=== PATIENT | male | born 1965 | race American Indian/Alaskan Native ===

== ENCOUNTER 2017-03-18 15:44 | Inpatient (IN) | payer MEDICARE, MEDICAID ==
[2017-03-18 15:45] VITALS: BMI 41.1
[2017-03-18 16:52] LABS: BASO % 0.5 % (0.0-2.0); EOS % 0.2 % (0.0-4.0); LYMPH % 26.3 % (20.0-40.0); MEAN CELL VOLUME 83.9 fL (80.0-94.0); MEAN CORPUSCULAR HGB CONC 34.6 g/dL (33.0-37.0); MEAN PLATELET VOLUME 8.1 fL (7.2-11.7); MONO # 0.4 K/uL (0.0-0.8); MONO % 5.7 % (0.0-10.0); NEUT % 67.3 % (50.0-75.0); RBC 4.82 Mil/uL (4.40-5.90); RED CELL DISTRIBUTION WIDTH 13.9 % (11.5-14.5); WHITE BLOOD COUNT 7.4 K/uL (4.8-10.8)
[2017-03-18 17:03] LABS: ALBUMIN 4.6 g/dL (3.5-5.0); ALT/SGPT 45 U/L (21-72); AST/SGOT 44 U/L (17-59); BLOOD UREA NITROGEN 8 mg/dL (9-20); CALCIUM 9.1 mg/dl (8.6-10.4); GFR AFRICAN-AMERICAN > 60; GFR NON-AFRICAN AMERICAN > 60
[2017-03-18 17:09] LABS: SQUAMOUS EPITHIAL < 1 /hpf (0-5); URINE BILIRUBIN NEGATIVE (NEGATIVE); URINE BLOOD NEGATIVE (NEGATIVE); URINE CLARITY Clear (Clear); URINE COLOR Yellow (YELLOW); URINE GLUCOSE (UA) 3+ mg/dL (Normal); URINE LEUKOCYTE ESTERASE NEG Leu/uL (Negative); URINE NITRATE NEGATIVE (NEGATIVE); URINE PROTEIN 2+ mg/dL (NEGATIVE); URINE UROBILINOGEN NORMAL mg/dL (0.2-1.0)
--- NOTE | 2017-03-18 17:12 | C.PDOC ---
History Of Present Illness 51 year old male presents to the ED for evaluation of substance abuse. Patient states he has been binging on alcohol and drugs for the last couple days. Patient saw his counselor today and reported thoughts of hurting himself if he doesn't get help. Patient states he had been clean for almost 4 years before he recently relapsed. Patient denies homicidal ideation and auditory/visual hallucinations at this time. Time Seen by Provider: 03/18/17 16:06 Chief Complaint (Nursing): Substance Abuse History Per: Patient History/Exam Limitations: no limitations Onset/Duration Of Symptoms: Days (2) Current Symptoms Are (Timing): Still Present Modifying Factor(s): Alcohol, Cocaine Associated Symptoms: Suicidal Thoughts. denies: Other (homicidal ideation ) Involuntary Hold By: None Recent travel outside of the [place]: No Additional History Per: Patient Past Medical History Reviewed: Historical Data, Nursing Documentation, Vital Signs Vital Signs: Last Vital Signs Temp 97.6 F 03/18/17 15:52 Pulse 102 H 03/18/17 15:52 Resp 20 03/18/17 15:52 BP 131/86 03/18/17 15:52 Pulse Ox 98 03/18/17 18:36 - Medical History PMH: HTN, Hypercholesterolemia Surgical History: No Surg Hx Family History: States: Unknown Family Hx - Social History Hx Alcohol Use: Yes Hx Substance Use: No - Immunization History Hx Tetanus Toxoid Vaccination: No Hx Influenza Vaccination: No Hx Pneumococcal Vaccination: No Review Of Systems Psych: Positive for: Suicidal ideation. Negative for: Other (homicidal ideation , auditory/hallucination ) Physical Exam - Physical Exam Appears: Non-toxic, No Acute Distress Skin: Normal Color, Warm, Dry Oral Mucosa: Moist Neck: Supple Chest: Symmetrical, No Deformity, No Tenderness Cardiovascular: Rhythm Regular, No Murmur Respiratory: Normal Breath Sounds, No Rales, No Rhonchi, No Wheezing Extremity: Normal ROM, Capillary Refill (less than 2 seconds ) Neurological/Psych: Oriented x3, Normal Speech, Normal Cognition Gait: Steady ED Course And Treatment - Laboratory Results Result Diagrams: 03/18/17 16:47 03/18/17 16:47 O2 Sat by Pulse Oximetry: 98 (on RA) Pulse Ox Interpretation: Normal Medical Decision Making Medical Decision Making: Progress: Bloodwork and UA ordered and reviewed. Patient placed on 1:1 ED observation. Patient has been medically cleared and accepted for admission to under diagnosis of substance abuse, depression and suicidal ideation. Disposition Discussed With Dr.: Erica Zhang Doctor Will See Patient In The: Hospital Counseled Patient/Family Regarding: Studies Performed, Diagnosis - Disposition Disposition: HOSPITALIZED Disposition Time: 18:35 Condition: FAIR - Clinical Impression Clinical Impression: Drug abuse, Bipolar 1 disorder - Scribe Statement The provider has reviewed the documentation as recorded by the Scribe (Ruth Arana) Provider Attestation: All medical record entries made by the Scribe were at my direction and personally dictated by me. I have reviewed the chart and agree that the record accurately reflects my personal performance of the history, physical exam, medical decision making, and the department course for this patient. I have also personally directed, reviewed, and agree with the discharge instructions and disposition.
[2017-03-18 17:24] LABS: ALB/GLOB RATIO 1.3 (1.0-2.1)
[2017-03-18 17:26] LABS: BARBITURATES, UR NEGATIVE (NEGATIVE); BENZODIAZEPINES, UR NEGATIVE (NEGATIVE); OPIATES, UR NEGATIVE (NEGATIVE); PHENCYCLIDINE, UR NEGATIVE (NEGATIVE)
--- NOTE | 2017-03-18 19:39 | PCM.BM ---
<Angeles Bradford - Last Filed: 03/18/17 19:37> Treatment Plan Problems - Problems identified on initial assessmt Suicidal Ideation Date Initiated: 03/18/17 Time Initiated: 19:37 Assessment reference: NA Status: Active Substance Abuse Date Initiated: 03/18/17 Time Initiated: 19:37 Assessment reference: NA Status: Active Treatment assets and liabiliti Patient Assests: adapts well, cooperative, ADL independent, negotiates basic needs, cognitively intact Patient Liabilities: live alone (lives with ), financial problems, relationship conflicts, substance abuse (Cocaine, ETOH), medical problems (DM, Arthritis, Prostate, High Cholesterol) - Milieu Protocol Maintain good personal hygiene: daily Encourage regular showers, daily Remind patient to perform daily oral care, every shift Assist patient to perform ADL's (Self), other Assist patient to perform ADL's Conduct patient checks and document Observation sheet: Q15 minutes (Safety) Maintain personal safety: every shift Educate patient to report safety concerns to staff, every shift Monitor environment for contraband/sharps Medication safety: Monitor for expected outcome, potential side effects: every shift, Assess barriers to learning: every shift, Assess readiness for medication education: every shift <Erica Zhang - Last Filed: 03/19/17 10:38> - Diagnosis (1) Bipolar 1 disorder Status: Acute Interventions: 03/19/17 10:39 * Assess/adjust medications daily and /or as needed * See patient on an individual basis 7x/week to assess level of manic behaviors and stability * Discuss risks, benefits, side effects and alternatives of medications * (2) Alcohol use disorder, severe, dependence Status: Acute Interventions: 03/19/17 10:39 * Assess 7x/week regarding severity of withdrawal * Educate regarding risks, benefits, side effects and alternatives of medications * Use Motivational Interviewing for abstinence * Use CBT for relapse prevention * Medication management for withdrawal symptoms * Encourage medication assisted treatment * <Aline Saldana - Last Filed: 03/19/17 11:13> Family Contact Family involvement: Famliy/SO not involved - Goals for Treatment Patient goals for treatment: "I want to go to rehab." Discharge/Continuing Care - Education Needs Education Needs: Patient Medication, Patient Coping Skills, Patient Placement options, Patient Community resources - Discharge Discharge Criteria: Tolerates medication w/o severe side effects, Free of Suicidal thoughts, Reduction of target symptoms Discharge to:: Substance Abuse Rehab - Treatment Team Participation Discussed with Family/SO: No Was Patient/Family/SO present at Treatment Team Meeting: Yes
[2017-03-18] MEDS: Rosuvastatin Calcium 2.5 mg Tab PO SCH (21:50)
--- NOTE | 2017-03-19 10:31 | PCM.PSYCH ---
Initial Psychiatric Evaluation - Initial Psychiatric Evaluation Type of Admission: Voluntary Legal Status: Capacity Chief Complaint (in patient's own words): I was feeling depressed and suicidal History of Present Illness and Precipitating Events: Pt is a 51 year old -[place] male, who came to the ED, with complaints of suicidal ideation. Patient reports a long history of bipolar disorder. Patient reported in the ED that, 'he has been [facility] and his counselor Mr. Jacobs advised him to go to the hospital after disclosing SI and substance use. Pt stated he relapsed on the cocaine and alcohol in February 02, 2017 after being sober for 4 1/2 years. Pt stated he last used cocaine almost $60 worth, yesterday. Pt also reported drinking a 6 pack of 24 oz beers daily, last abused yesterday. Pt stated he has been having thoughts of wanting to harm himself for over one week. When asked if he has a plan he reports he has "a couple of plans" which consists of him jumping off bridge. Pt states he is diagnosed Bipolar Disorder and reports being prescribed medications, unknown but he hasn't taken for over 2 -3 weeks. Pt stated he [place] [facility] [place] 23 [place] Suicide attempt when he drank poision. Pt also reported being hospitalized in [place] and "a few other hospitals in [place]" he believes the last hospitalization to be 2011. Pt stated that when his learned of his drug use she kicked him out and he has been staying at his mother and father's house sleeping on the couch. Pt is a and reports he served in the until 01/07/1990. 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 He also reports depressed mood and feelings of hopelessness and helplessness. He reports poor sleep and poor appetite. He also reports auditory hallucinations, telling him to kill himself but denies any visual hallucinations. PMH: DM, Hypercholesterolimia, Glaucoma, Arthritis, Enlarged prostate. Current Medications: Active Medications Generic Name Dose Route Start Last Admin Trade Name Freq PRN Reason Stop Dose Admin Hydroxyzine HCl 25 mg 03/18/17 21:32 Atarax PO Q6 PRN Agitation Metformin HCl 1,000 mg 03/19/17 10:00 03/19/17 09:50 Glucophage PO 1,000 mg BID ESTUARDO Administration Pneumococcal Polyvalent Vaccine 0.5 ml 03/20/17 10:00 Pneumovax 23 Vaccine IM 03/20/17 10:01 .ONCE ONE Rosuvastatin Calcium 2.5 mg 03/18/17 22:00 03/18/17 21:50 Crestor PO 2.5 mg HS ESTUARDO Administration Trazodone HCl 50 mg 03/18/17 22:00 03/18/17 21:50 Desyrel PO 50 mg HS ESTUARDO Administration Past Psychiatric History - Past Psychiatric History Previous Treatment History: Inpatient Pertinent Medical Hx (Current Medical&Sleep Prob, Allergies): Allergies Allergy/AdvReac Type Severity Reaction Status Date / Time No Known Allergies Allergy Verified 03/18/17 15:55 MetFORMIN [glucOPHAGE] 1,000 mg PO BID 03/18/17 Simvastatin 10 mg PO HS 03/18/17 Review of Systems - Review of Systems All systems: reviewed and no additional remarkable complaints except - Psychiatric Psychiatric: Anxiety, Auditory Hallucinations, Depression, Irritability, Suicidal Ideation Mental Status Examination - Personal Presentation Personal Presentation: Looks stated age - Affect Affect: Constricted, Depressed - Motor Activity Motor Activity: Calm - Reliability in Providing Information Reliability in Providing Information: Fair - Speech Speech: Organized - Mood Mood: Depressed, Anxious - Formal Thought Process Formal Thought Process: Hallucinations - Hallucinations/Delusions Hallucinations: Auditory - Obsessions/Compulsions Obsessions: No Compulsions: No - Cognitive Functions Orientation: Person, Place, Situation, Time Sensorium: Alert Attention/Concentration: Attentive Abstract Thinking: [place] Estimate of Intelligence: Below average Judgement: Imparied, as evidence by: Poor judgement, Imparied, as evidence by: Lack of insight into illness - Risk Risk: Suicidal, Diminished functioning - Strength & Assets Inventory Strength & Assets Inventory: Intelligence - Limitations Limitations: Living alone DSM 5 DX - DSM 5 DSM 5 Diagnosis: Bipolar disorder depressed with psychotic features Alcohol use disorder severe Cocaine use disorder severe - Recommended/Plan of Treatment Treatment Recommendations and Plan of Treatment: Bipolar disorder depressed with psychotic features CBT Psychoeducation Supportive therapy, group therapy, individual therapy Neurontin 100 mg PO TID Depakote 250 mg by mouth twice a day Trazodone 50 mg by mouth daily at bedtime Alcohol use disorder severe CBT Psychoeducation Supportive therapy, individual therapy Use [place] for abstinence Librium when necessary Start folic acid/thiamine/multivitamin Cocaine use disorder severe CBT Psychoeducation Supportive therapy, individual therapy Use [place] for abstinence DM Continue prescribed medications Monitor for signs and symptoms Hypercholesterolimia Continue prescribed medications Monitor for signs and symptoms Glaucoma, Continue prescribed medications Monitor for signs and symptoms Enlarged prostate Continue prescribed medications Monitor for signs and symptoms - Smoking Cessation Smoking Cessation Initiated: No
[2017-03-19] MEDS: Divalproex 250 mg DR Tab PO SCH (17:48)
[2017-03-19] MEDS: Rosuvastatin Calcium 2.5 mg Tab PO SCH (22:19)
[2017-03-20] MEDS: Divalproex 250 mg DR Tab PO SCH ×2 (09:43→17:20)
[2017-03-20] MEDS ORDERED: Pneumococcal 23-Valent Vaccine IM ONE (10:00)
[2017-03-20] MEDS ORDERED: Influenza Vaccine 60 mcg/0.5 mL SYR (4YR UP) IM ONE (10:00)
--- NOTE | 2017-03-20 15:13 | PCM.PYCHPN ---
Psychiatric Progress Note - Psychiatric Progress Note Patient seen today, length of contact: 15 minutes Patient Chief Complaint: "I was not able to sleep last night" Problems Identified/Issues Discussed: Patient was seen and evaluated chart was reviewed. Nurse improved was received. The patient stated that he is feeling better however he was not able to sleep last night. He still reported depressive symptoms. He needs more time to stabilize. He denied suicidal and homicidal ideation intent and plan. He is compliant with the medication and denied side effects. DSM 5 Symptoms Update: Bipolar disorder depressed with psychotic features Alcohol use disorder severe Cocaine use disorder severe Medication Change: Yes (Increase trazodone) Medical Record Reviewed: Yes Mental Status Examination - Cognitive Function Orientation: Person, Place, Situation, Time Memory: Intact Attention: WNL Concentration: WNL Association: Loose Fund of Knowledge: WNL Decription of patient's judgement and insights: Limited/fair - Mood Mood: Depressed, Anxious - Affect Affect: Constricted, Depressed - Speech Speech: Appropriate - Formal Thought Process Formal Thought Process: Hallucinations Psychotic Thoughts and Behaviors: He is calm and cooperative - Suicidal Ideation Suicidal Ideation: No - Homicidal Ideation Homicidal Ideation: No Goal/Treatment Plan - Goal/Treatment Plan Need for Continued Stay: Severe depression anxiety, Discharge may exacerbated symptoms, Severe functional impairment Progress Toward Problem(s) and Goals/Treatment Plan: Bipolar disorder depressed with psychotic features CBT Psychoeducation Supportive therapy, group therapy, individual therapy Neurontin 100 mg PO TID Depakote 250 mg by mouth twice a day Trazodone 50 mg by mouth daily at bedtime Alcohol use disorder severe CBT Psychoeducation Supportive therapy, individual therapy Use [place] for abstinence Librium when necessary Start folic acid/thiamine/multivitamin Cocaine use disorder severe CBT Psychoeducation Supportive therapy, individual therapy Use NM for abstinence DM Continue prescribed medications Monitor for signs and symptoms Hypercholesterolimia Continue prescribed medications Monitor for signs and symptoms Glaucoma, Continue prescribed medications Monitor for signs and symptoms Enlarged prostate Continue prescribed medications Monitor for signs and symptoms Estimated Date of D/C: 03/24/17 - Smoking Cessation Smoking Cessation Initiated: Yes
[2017-03-20] MEDS: Rosuvastatin Calcium 2.5 mg Tab PO SCH (22:09)
[2017-03-21] MEDS: Divalproex 250 mg DR Tab PO SCH ×2 (09:41→17:43)
--- NOTE | 2017-03-21 12:26 | PCM.PYCHPN ---
Psychiatric Progress Note - Psychiatric Progress Note Patient seen today, length of contact: 15 minutes Patient Chief Complaint: "So so" Problems Identified/Issues Discussed: The pt is seen, chart reviewed, case discussed with staff. The pt is compliant with medications and reports no side-effects. Symptoms are improving but needs more time to stabilize. After care discussed, support and psychoeducation given. Lexapro added bc of depressed mood, anhedonia Medication Change: Yes (add lexapro) Medical Record Reviewed: Yes Mental Status Examination - Cognitive Function Orientation: Person, Place, Situation, Time Memory: Intact Attention: WNL Concentration: WNL Association: Loose Fund of Knowledge: WNL - Mood Mood: Depressed, Anxious - Affect Affect: Constricted, Depressed - Speech Speech: Appropriate - Formal Thought Process Formal Thought Process: No Impairment - Suicidal Ideation Suicidal Ideation: No - Homicidal Ideation Homicidal Ideation: No Goal/Treatment Plan - Goal/Treatment Plan Need for Continued Stay: Severe depression anxiety, Discharge may exacerbated symptoms, Severe functional impairment Progress Toward Problem(s) and Goals/Treatment Plan: Continue medications Support and psychoeducation daily Attend groups and activities daily After care planning by JEANNA Estimated Date of D/C: 03/24/17
[2017-03-21] MEDS: Rosuvastatin Calcium 2.5 mg Tab PO SCH (22:08)
[2017-03-22] MEDS: Divalproex 250 mg DR Tab PO SCH ×2 (09:12→17:09)
--- NOTE | 2017-03-22 18:13 | PCM.PYCHPN ---
Psychiatric Progress Note - Psychiatric Progress Note Patient seen today, length of contact: 15 minutes Patient Chief Complaint: "I'm feeling better" Problems Identified/Issues Discussed: Patient was seen and evaluated chart was reviewed. Nurse improved was received. The patient stated that he is feeling better. He still reported depressive symptoms. He needs more time to stabilize. He denied suicidal and homicidal ideation intent and plan. He is compliant with the medication and denied side effects. He denied etoh withdrawal symptoms Medication Change: No Medical Record Reviewed: Yes Mental Status Examination - Cognitive Function Orientation: Person, Place, Situation, Time Memory: Intact Attention: WNL Concentration: WNL Association: Loose Fund of Knowledge: WN Decription of patient's judgement and insights: limited/fair - Mood Mood: Depressed, Anxious - Affect Affect: Constricted, Depressed - Speech Speech: Appropriate - Formal Thought Process Formal Thought Process: No Impairment Psychotic Thoughts and Behaviors: denied - Suicidal Ideation Suicidal Ideation: No Plan: denied - Homicidal Ideation Homicidal Ideation: No Plan: denied Goal/Treatment Plan - Goal/Treatment Plan Need for Continued Stay: Severe depression anxiety, Discharge may exacerbated symptoms, Severe functional impairment Progress Toward Problem(s) and Goals/Treatment Plan: Bipolar disorder depressed with psychotic features CBT Psychoeducation Supportive therapy, group therapy, individual therapy Neurontin 100 mg PO TID Depakote 250 mg by mouth twice a day Trazodone 50 mg by mouth daily at bedtime Alcohol use disorder severe CBT Psychoeducation Supportive therapy, individual therapy Use [place] for abstinence Librium when necessary Start folic acid/thiamine/multivitamin Cocaine use disorder severe CBT Psychoeducation Supportive therapy, individual therapy Use [place] for abstinence DM Continue prescribed medications Monitor for signs and symptoms Hypercholesterolimia Continue prescribed medications Monitor for signs and symptoms Glaucoma, Continue prescribed medications Monitor for signs and symptoms Enlarged prostate Continue prescribed medications Monitor for signs and symptoms Estimated Date of D/C: 03/24/17
[2017-03-22] MEDS: Rosuvastatin Calcium 2.5 mg Tab PO SCH (21:23)
[2017-03-23] MEDS: Divalproex 250 mg DR Tab PO SCH ×2 (10:05→17:33)
--- NOTE | 2017-03-23 11:28 | PCM.PYCHPN ---
Psychiatric Progress Note - Psychiatric Progress Note Patient seen today, length of contact: 15 minutes Patient Chief Complaint: I was feeling depressed and suicidal Medication Change: No Medical Record Reviewed: Yes Mental Status Examination - Cognitive Function Orientation: Person, Place, Situation, Time Memory: Intact Attention: WNL Concentration: WNL Association: Loose Fund of Knowledge: WNL - Mood Mood: Depressed, Anxious - Affect Affect: Constricted, Depressed - Speech Speech: Appropriate - Formal Thought Process Formal Thought Process: No Impairment - Suicidal Ideation Suicidal Ideation: No - Homicidal Ideation Homicidal Ideation: No Goal/Treatment Plan - Goal/Treatment Plan Need for Continued Stay: Severe depression anxiety, Discharge may exacerbated symptoms, Severe functional impairment Progress Toward Problem(s) and Goals/Treatment Plan: Bipolar disorder depressed with psychotic features CBT Psychoeducation Supportive therapy, group therapy, individual therapy Neurontin 100 mg PO TID Depakote 250 mg by mouth twice a day Trazodone 50 mg by mouth daily at bedtime Alcohol use disorder severe CBT Psychoeducation Supportive therapy, individual therapy Use [place] for abstinence Librium when necessary Start folic acid/thiamine/multivitamin Cocaine use disorder severe CBT Psychoeducation Supportive therapy, individual therapy Use [place] for abstinence DM Continue prescribed medications Monitor for signs and symptoms Hypercholesterolimia Continue prescribed medications Monitor for signs and symptoms Glaucoma, Continue prescribed medications Monitor for signs and symptoms Enlarged prostate Continue prescribed medications Monitor for signs and symptoms Estimated Date of D/C: 03/24/17
[2017-03-23] MEDS: Rosuvastatin Calcium 2.5 mg Tab PO SCH (21:13)
--- NOTE | 2017-03-24 09:59 | PCM.PYCHPN ---
Psychiatric Progress Note - Psychiatric Progress Note Patient seen today, length of contact: 15 minutes Patient Chief Complaint: I was feeling depressed and suicidal Medication Change: No Medical Record Reviewed: Yes Mental Status Examination - Cognitive Function Orientation: Person, Place, Situation, Time Memory: Intact Attention: WNL Concentration: WNL Association: Loose Fund of Knowledge: WNL - Mood Mood: Depressed, Anxious - Affect Affect: Constricted, Depressed - Speech Speech: Appropriate - Formal Thought Process Formal Thought Process: No Impairment - Suicidal Ideation Suicidal Ideation: No - Homicidal Ideation Homicidal Ideation: No Goal/Treatment Plan - Goal/Treatment Plan Need for Continued Stay: Severe depression anxiety, Discharge may exacerbated symptoms, Severe functional impairment Progress Toward Problem(s) and Goals/Treatment Plan: Bipolar disorder depressed with psychotic features CBT Psychoeducation Supportive therapy, group therapy, individual therapy Neurontin 100 mg PO TID Depakote 250 mg by mouth twice a day Trazodone 50 mg by mouth daily at bedtime Alcohol use disorder severe CBT Psychoeducation Supportive therapy, individual therapy Use [place] for abstinence Librium when necessary Start folic acid/thiamine/multivitamin Cocaine use disorder severe CBT Psychoeducation Supportive therapy, individual therapy Use [place] for abstinence DM Continue prescribed medications Monitor for signs and symptoms Hypercholesterolimia Continue prescribed medications Monitor for signs and symptoms Glaucoma, Continue prescribed medications Monitor for signs and symptoms Enlarged prostate Continue prescribed medications Monitor for signs and symptoms Estimated Date of D/C: 03/24/17
[2017-03-24] MEDS: Divalproex 250 mg DR Tab PO SCH ×2 (14:34→17:02)
[2017-03-24] MEDS: Rosuvastatin Calcium 2.5 mg Tab PO SCH (21:17)
--- NOTE | 2017-03-25 09:44 | PCM.PYCHPN ---
Psychiatric Progress Note - Psychiatric Progress Note Patient seen today, length of contact: 15 minutes Patient Chief Complaint: I was feeling depressed and suicidal Medication Change: No Medical Record Reviewed: Yes Mental Status Examination - Cognitive Function Orientation: Person, Place, Situation, Time Memory: Intact Attention: WNL Concentration: WNL Association: Loose Fund of Knowledge: WNL - Mood Mood: Depressed, Anxious - Affect Affect: Constricted, Depressed - Speech Speech: Appropriate - Formal Thought Process Formal Thought Process: No Impairment - Suicidal Ideation Suicidal Ideation: No - Homicidal Ideation Homicidal Ideation: No Goal/Treatment Plan - Goal/Treatment Plan Need for Continued Stay: Severe depression anxiety, Discharge may exacerbated symptoms, Severe functional impairment Progress Toward Problem(s) and Goals/Treatment Plan: Bipolar disorder depressed with psychotic features CBT Psychoeducation Supportive therapy, group therapy, individual therapy Neurontin 100 mg PO TID Depakote 250 mg by mouth twice a day Trazodone 50 mg by mouth daily at bedtime Alcohol use disorder severe CBT Psychoeducation Supportive therapy, individual therapy Use [place] for abstinence Librium when necessary Start folic acid/thiamine/multivitamin Cocaine use disorder severe CBT Psychoeducation Supportive therapy, individual therapy Use [place] for abstinence DM Continue prescribed medications Monitor for signs and symptoms Hypercholesterolimia Continue prescribed medications Monitor for signs and symptoms Glaucoma, Continue prescribed medications Monitor for signs and symptoms Enlarged prostate Continue prescribed medications Monitor for signs and symptoms Estimated Date of D/C: 03/24/17
[2017-03-25] MEDS: Divalproex 250 mg DR Tab PO SCH ×2 (09:54→17:10)
[2017-03-25] MEDS: Rosuvastatin Calcium 2.5 mg Tab PO SCH (21:18)
[2017-03-26] MEDS: Divalproex 250 mg DR Tab PO SCH ×2 (09:39→17:10)
--- NOTE | 2017-03-26 12:50 | PCM.PYCHPN ---
Psychiatric Progress Note - Psychiatric Progress Note Patient seen today, length of contact: 15 minutes Patient Chief Complaint: I am still feeling depressed.' Problems Identified/Issues Discussed: Patient seen and evaluated, chart reviewed and discussed with the nurse. As per the staff he remained isolated withdrawn and confined to his room. He still reports depressed mood, anxiety, anhidonia and poor sleep. Patient is compliant with medications and denies any side effects. Symptoms are improving but need more time to stabilize. Support and psychoeducation given. Medication Change: Yes (increase remeron) Medical Record Reviewed: Yes Mental Status Examination - Cognitive Function Orientation: Person, Place, Situation, Time Memory: Intact Attention: Poor Concentration: WNL Association: Loose Fund of Knowledge: WNL - Mood Mood: Depressed, Anxious - Affect Affect: Constricted, Depressed - Speech Speech: Appropriate - Formal Thought Process Formal Thought Process: No Impairment - Suicidal Ideation Suicidal Ideation: No - Homicidal Ideation Homicidal Ideation: No Goal/Treatment Plan - Goal/Treatment Plan Need for Continued Stay: Severe depression anxiety, Discharge may exacerbated symptoms, Severe functional impairment Progress Toward Problem(s) and Goals/Treatment Plan: Bipolar disorder depressed with psychotic features CBT Psychoeducation Supportive therapy, group therapy, individual therapy Depakote 250 mg by mouth twice a day Remeron 30 mg PO QHS Lexparo 20 mg PO Daily Trazodone 50 mg by mouth daily at bedtime Alcohol use disorder severe CBT Psychoeducation Supportive therapy, individual therapy Use ND for abstinence Librium when necessary Start folic acid/thiamine/multivitamin Cocaine use disorder severe CBT Psychoeducation Supportive therapy, individual therapy Use ND for abstinence DM Continue prescribed medications Monitor for signs and symptoms Hypercholesterolimia Continue prescribed medications Monitor for signs and symptoms Glaucoma, Continue prescribed medications Monitor for signs and symptoms Enlarged prostate Continue prescribed medications Monitor for signs and symptoms Estimated Date of D/C: 03/24/17 - Smoking Cessation Smoking Cessation Initiated: No
[2017-03-26] MEDS: Rosuvastatin Calcium 2.5 mg Tab PO SCH (21:09)
[2017-03-27] MEDS: Divalproex 250 mg DR Tab PO SCH ×2 (09:46→17:19)
[2017-03-27 16:49] VITALS: O2SAT 20
[2017-03-27] MEDS: Rosuvastatin Calcium 2.5 mg Tab PO SCH (21:53)
[2017-03-28] MEDS: Divalproex 250 mg DR Tab PO SCH ×2 (09:55→17:18)
[2017-03-28] MEDS ORDERED: Naltrexone 25 MG TAB PO SCH (10:00)
[2017-03-28] MEDS: Rosuvastatin Calcium 2.5 mg Tab PO SCH (21:26)
[2017-03-29] MEDS: Divalproex 250 mg DR Tab PO SCH ×2 (09:56→18:06)
[2017-03-29 10:17] VITALS: RESP 20
--- NOTE | 2017-03-29 20:00 | PCM.PYCHPN ---
Psychiatric Progress Note - Psychiatric Progress Note Patient seen today, length of contact: 15 minutes Patient Chief Complaint: I am still feeling depressed.' Problems Identified/Issues Discussed: Patient seen and evaluated, chart reviewed and discussed with the nurse. As per the staff he remained isolated withdrawn and confined to his room. He still reports depressed mood, anxiety, anhidonia and poor sleep. Patient is compliant with medications and denies any side effects. Symptoms are improving but need more time to stabilize. Support and psychoeducation given. Medication Change: Yes (increase remeron) Medical Record Reviewed: Yes Mental Status Examination - Cognitive Function Orientation: Person, Place, Situation, Time Memory: Intact Attention: Poor Concentration: WNL Association: Loose Fund of Knowledge: WNL - Mood Mood: Depressed, Anxious - Affect Affect: Constricted, Depressed - Speech Speech: Appropriate - Formal Thought Process Formal Thought Process: No Impairment - Suicidal Ideation Suicidal Ideation: No - Homicidal Ideation Homicidal Ideation: No Goal/Treatment Plan - Goal/Treatment Plan Need for Continued Stay: Severe depression anxiety, Discharge may exacerbated symptoms, Severe functional impairment Progress Toward Problem(s) and Goals/Treatment Plan: Bipolar disorder depressed with psychotic features CBT Psychoeducation Supportive therapy, group therapy, individual therapy Depakote 250 mg by mouth twice a day Remeron 30 mg PO QHS Lexparo 20 mg PO Daily Trazodone 50 mg by mouth daily at bedtime Alcohol use disorder severe CBT Psychoeducation Supportive therapy, individual therapy Use [place] for abstinence Librium when necessary Start folic acid/thiamine/multivitamin Cocaine use disorder severe CBT Psychoeducation Supportive therapy, individual therapy Use [place] for abstinence DM Continue prescribed medications Monitor for signs and symptoms Hypercholesterolimia Continue prescribed medications Monitor for signs and symptoms Glaucoma, Continue prescribed medications Monitor for signs and symptoms Enlarged prostate Continue prescribed medications Monitor for signs and symptoms Estimated Date of D/C: 03/24/17
[2017-03-29] MEDS: Rosuvastatin Calcium 2.5 mg Tab PO SCH (22:29)
[2017-03-30 06:02] VITALS: BP 115/74; PULSE 85; TEMP 97.6
--- NOTE | 2017-03-30 07:47 | PCM.PYCHPN ---
Psychiatric Progress Note - Psychiatric Progress Note Patient seen today, length of contact: 15 minutes Patient Chief Complaint: I AM HAVING VIVID AND STRANGE DREAMS. Problems Identified/Issues Discussed: POST ACUTE WITHDRAWAL SYNDROME SYMPTOM MANAGEMENT Medical Problems: NOTHING ACUTE Diagnostic Results: REVIEWED DSM 5 Symptoms Update: MORE ENERGY MORE MOTIVATION Medication Change: No Medical Record Reviewed: Yes Mental Status Examination - Cognitive Function Orientation: Person, Place, Situation, Time Memory: Intact Concentration: WNL Association: [facility] Fund of Knowledge: WN - Mood Mood: Depressed - Affect Affect: Constricted, Depressed - Speech Speech: Appropriate - Formal Thought Process Formal Thought Process: No Impairment - Suicidal Ideation Suicidal Ideation: No - Homicidal Ideation Homicidal Ideation: No Goal/Treatment Plan - Goal/Treatment Plan Need for Continued Stay: Severe depression anxiety, Discharge may exacerbated symptoms, Severe functional impairment Progress Toward Problem(s) and Goals/Treatment Plan: BIPOLAR DISORDER NEUROTIN DEPAKOTE ALCOHOL USE DISORDER TN CBT Estimated Date of D/C: 03/30/17 - Smoking Cessation Smoking Cessation Initiated: Yes
--- NOTE | 2017-03-30 10:06 | PCM.PYCHDC ---
Mental Status Examination - Mental Status Examination Orientation: Person, Place, Situation, Time Memory: Intact Mood: Neutral Affect: Constricted Speech: Soft Attention: WNL Concentration: WNL Association: WNL Fund of Knowledge: WNL Formal Thought Process: No Impairment Description of patient's judgement and insight: good, fair Psychotic Thoughts and Behaviors: denies any AVH Suicidal Ideation: No Current Homicidal Ideation?: No Discharge Summary - Discharge Note Reason for Hospitalization: Pt is a 51 year old -Eth[place]ian male, who came to the ED, with complaints of suicidal ideation. Patient reports a long history of bipolar disorder. Patient reported in the ED that, 'he has been [facility] and his counselor Mr. Jacobs advised him to go to the hospital after disclosing SI and substance use. Pt stated he relapsed on the cocaine and alcohol in February 02, 2017 after being sober for 4 1/2 years. Pt stated he last used cocaine almost $60 worth, yesterday. Pt also reported drinking a 6 pack of 24 oz beers daily, last abused yesterday. Pt stated he has been having thoughts of wanting to harm himself for over one week. When asked if he has a plan he reports he has "a couple of plans" which consists of him jumping off bridge. Pt states he is diagnosed Bipolar Disorder and reports being prescribed medications, unknown but he hasn't taken for over 2 -3 weeks. Pt stated he was hospitalized psychiatrically at [facility] at age 23 after Suicide attempt when he drank poision. Pt also reported being hospitalized in [place] and "a few other hospitals in [place]" he believes the last hospitalization to be 2011. Pt stated that when his learned of his drug use she kicked him out and he has been staying at his mother and father's house sleeping on the couch. Pt is a and reports he served in the [employer] until 01/07/1990. 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 He also reports depressed mood and feelings of hopelessness and helplessness. He reports poor sleep and poor appetite. He also reports auditory hallucinations, telling him to kill himself but denies any visual hallucinations. Laboratory Data: Abnormal Lab Results 03/30/17 07:19 POC Glucose (mg/dL) 252 H Consultations:: List each consultation separately and include: 1. Reason for request. 2. Findings. 3. Follow-up Summary of Hospital Course include:: 1. Description of specific treatment plan utilized for patients during their course of treatmen. 2. Summarize the time- course for resolution of acute symptoms and/or regressed behaviors. 3. Describe issues identified and worked on during hospitalization. 4. Describe medication utilized. 5. Describe medical problems identified and treated. 6. Reassessment of suicide risk Summary of Hospital Course: During the course of his stay, patient (pt) started progressively improving and he no longer remained irritable, depressed, and suicidal. His mood was improved and he started attending groups and meetings and started socializing. Patient denied any feelings of hopelessness, helplessness, and worthlessness, denied any problem with the sleep or appetite, denied suicidal ideation or homicidal ideation. Pt denied any auditory or visual hallucinations. Some changes were made in his current medications and patient was discharged on following medications. He tolerated these medications very well and denied any side effects. CBT and OH were used. He was discharged to [facility]. - Diagnosis (1) Bipolar 1 disorder Status: Acute (2) Alcohol use disorder, severe, dependence Status: Acute - Final Diagnosis (DSM 5) Condition upon Discharge: FAIR DSM 5: Bipolar disorder depressed with psychotic features Alcohol use disorder severe Cocaine use disorder severe Disposition: HOME/ ROUTINE Follow-up Treatment Plan: Education: Pt was educated and counseled about the risks and benefits of taking and not taking medications. Pt was educated and counseled about the risks of drinking and abusing drugs. Pt was educated and counseled to go to the ER or call 911 if pt develop suicidal ideation or homicidal ideation, worsening of symptoms or severe side effects of the meds. Prescriptions/Medication Reconciliation: Divalproex [Depakote DR] 250 mg PO BID #60 tcp Escitalopram [Lexapro] 20 mg PO DAILY #30 tab Mirtazapine [Remeron] 30 mg PO HS #30 tab traZODone [Desyrel] 100 mg PO HS #60 tab - Smoking Cessation Smoking Cessation Medication prescribed: No - Antipsychotic Medications Pt discharged on 2 or more routine antipsychotic medications: No
[2017-03-30] MEDS: Divalproex 250 mg DR Tab PO SCH (10:56)
== END 2017-03-30 11:30 | disposition home or self-care (01) | DRG 885 ==
LOC: C.ER 15:44 → C.5E 18:34
PROVIDERS: ADMIT Psychiatry & Neurology Psychiatry; ATTEND Psychiatry & Neurology Psychiatry
PROC: HZ2ZZZZ Detoxification Services for Substance Abuse Treatment (ICD-10-PCS; principal; 2017-03-18)
PROC: GZ3ZZZZ Medication Management (ICD-10-PCS; 2017-03-18)
PROC: GZHZZZZ Group Psychotherapy (ICD-10-PCS; 2017-03-18)
PROC: GZ56ZZZ Individual Psychotherapy, Supportive (ICD-10-PCS; 2017-03-18)
PROC: HZ89ZZZ Medication Management for Substance Abuse Treatment, Other Replacement Medication (ICD-10-PCS; 2017-03-18)
PROC: HZ46ZZZ Group Counseling for Substance Abuse Treatment, Psychoeducation (ICD-10-PCS; 2017-03-18)
PROC: HZ59ZZZ Individual Psychotherapy for Substance Abuse Treatment, Supportive (ICD-10-PCS; 2017-03-18)
DX: F31.5 Bipolar disorder, current episode depressed, severe, with psychotic features (principal); F14.20 Cocaine dependence, uncomplicated; R45.851 Suicidal ideations; F10.20 Alcohol dependence, uncomplicated; E11.9 Type 2 diabetes mellitus without complications; N40.0 Benign prostatic hyperplasia without lower urinary tract symptoms; H40.9 Unspecified glaucoma; F41.9 Anxiety disorder, unspecified; E78.00 Pure hypercholesterolemia, unspecified

== ENCOUNTER 2017-06-01 01:27 | Inpatient (IN) | payer MEDICARE, MEDICAID ==
[2017-06-01 01:27] VITALS: BMI 41.1
--- NOTE | 2017-06-01 02:38 | C.PDOC ---
History Of Present Illness 51 year old male presents to the ER stating he is suicidal with a plan to jump in front of a train. Denies physical complaints at this time. Time Seen by Provider: 06/01/17 01:57 Chief Complaint (Nursing): Psychiatric Evaluation History Per: Patient History/Exam Limitations: no limitations Onset/Duration Of Symptoms: Days Current Symptoms Are (Timing): Still Present Suicide/Self Injury Attempted (Context): None Modifying Factor(s): None Associated Symptoms: Suicidal Thoughts, Suicidal Plan. denies: Depression Involuntary Hold By: None Recent travel outside of the [place]: No Past Medical History Reviewed: Historical Data, Nursing Documentation, Vital Signs Vital Signs: Last Vital Signs Temp 98.4 F 06/01/17 01:40 Pulse 102 H 06/01/17 01:40 Resp 20 06/01/17 01:40 BP 110/73 06/01/17 01:40 Pulse Ox 100 06/01/17 02:42 - Medical History PMH: Bipolar Disorder, Depression, Diabetes, HTN, Hypercholesterolemia - [facility] Procedures DETOXIFICATION SERVICES FOR SUBSTANCE ABUSE TREATMENT (03/18/17) GROUP DRESS MARKER FOR SUBSTANCE ABUSE TREATMENT, PSYCHOEDUCATION (03/18/17) GROUP PSYCHOTHERAPY (03/18/17) INDIV PSYCHOTHERAPY FOR SUBSTANCE ABUSE TREATMENT, SUPPORT (03/18/17) INDIVIDUAL PSYCHOTHERAPY, SUPPORTIVE (03/18/17) MEDICATION MANAGEMENT (03/18/17) MEDS MGMT FOR SUBSTANCE ABUSE TREATMENT, OTH REPL MED (03/18/17) Family History: States: Unknown Family Hx - Social History Hx Alcohol Use: Yes (Drink alcohol daily) Hx Substance Use: Yes - Immunization History Hx Tetanus Toxoid Vaccination: No Hx Influenza Vaccination: No Hx Pneumococcal Vaccination: No Review Of Systems Constitutional: Negative for: Fever, Chills Cardiovascular: Negative for: Chest Pain, Palpitations Respiratory: Negative for: Cough Gastrointestinal: Negative for: Nausea, Vomiting, Diarrhea Psych: Positive for: Suicidal ideation (w/ plan) Physical Exam - Physical Exam Appears: Non-toxic, No Acute Distress Skin: Normal Color, Warm, Dry Head: Atraumatic, Normacephalic Eye(s): bilateral: Normal Inspection Oral Mucosa: Moist Chest: Symmetrical, No Tenderness Cardiovascular: Rhythm Regular Respiratory: Normal Breath Sounds, No Rales, No Rhonchi, No Wheezing Gastrointestinal/Abdominal: Soft, No Tenderness Neurological/Psych: Oriented x3, Normal Speech ED Course And Treatment - Laboratory Results Result Diagrams: 06/01/17 04:44 06/01/17 04:44 O2 Sat by Pulse Oximetry: 100 (Room air) Pulse Ox Interpretation: Normal Progress Note: Patient was admitted to psych Medical Decision Making Medical Decision Making: Crisis notified. 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 - Scribe Statement The provider has reviewed the documentation as recorded by the Scribe Forest Man All medical record entries made by the Ivanaibe were at my direction and personally dictated by me. I have reviewed the chart and agree that the record accurately reflects my personal performance of the history, physical exam, medical decision making, and the department course for this patient. I have also personally directed, reviewed, and agree with the discharge instructions and disposition.
[2017-06-01 04:47] LABS: BASO # 0.1 K/uL (0.0-0.2); BASO % 0.6 % (0.0-2.0); EOS % 0.1 % (0.0-4.0); HEMOGLOBIN 13.9 g/dL (12.0-18.0); LYMPH # 2.8 K/uL (1.0-4.3); LYMPH % 30.3 % (20.0-40.0); MEAN CELL VOLUME 87.4 fL (80.0-94.0); MEAN CORPUSCULAR HEMOGLOBIN 28.8 pg (27.0-31.0); MEAN PLATELET VOLUME 8.8 fL (7.2-11.7); MONO # 0.4 K/uL (0.0-0.8); NEUT # 5.9 K/uL (1.8-7.0); NRBC % 0.1 % (0.0-2.0); RBC 4.84 Mil/uL (4.40-5.90); RED CELL DISTRIBUTION WIDTH 14.9 % (11.5-14.5); WHITE BLOOD COUNT 9.1 K/uL (4.8-10.8)
[2017-06-01 05:04] LABS: BARBITURATES, UR NEGATIVE (NEGATIVE); BENZODIAZEPINES, UR NEGATIVE (NEGATIVE); OPIATES, UR NEGATIVE (NEGATIVE); PHENCYCLIDINE, UR NEGATIVE (NEGATIVE)
[2017-06-01 05:16] LABS: ALB/GLOB RATIO 1.2 (1.0-2.1); ALBUMIN 4.6 g/dL (3.5-5.0); ALT/SGPT 47 U/L (21-72); AST/SGOT 26 U/L (17-59); BLOOD UREA NITROGEN 4 mg/dL (9-20); CALCIUM 9.2 mg/dl (8.6-10.4); GFR AFRICAN-AMERICAN > 60; GFR NON-AFRICAN AMERICAN > 60
[2017-06-01 05:31] LABS: SQUAMOUS EPITHIAL < 1 /hpf (0-5); URINE BILIRUBIN NEGATIVE (NEGATIVE); URINE BLOOD NEGATIVE (NEGATIVE); URINE CLARITY Hazy (Clear); URINE COLOR Yellow (YELLOW); URINE GLUCOSE (UA) 2+ mg/dL (Normal); URINE LEUKOCYTE ESTERASE NEG Leu/uL (Negative); URINE PROTEIN 2+ mg/dL (NEGATIVE)
--- NOTE | 2017-06-01 08:35 | PCM.BM ---
<Faustino Rodney - Last Filed: 06/01/17 08:32> Treatment Plan Problems - Problems identified on initial assessmt Depression Date Initiated: 06/01/17 Time Initiated: 08:00 Assessment reference: NA Status: Active Substance Abuse Date Initiated: 06/01/17 Time Initiated: 08:00 Assessment reference: NA Status: Active Treatment assets and liabiliti Patient Assests: adapts well, cooperative, ADL independent, negotiates basic needs, cognitively intact Patient Liabilities: live alone (Homeless), financial problems (disabled), dietary restrictions (Diabetic), substance abuse (Crack cocaine), medical problems (Glaucoma, Diabetes, HTN) - Milieu Protocol Maintain good personal hygiene: daily Encourage regular showers, every shift Remind patient to perform daily oral care, every shift Assist patient to perform ADL's Conduct patient checks and document Observation sheet: Q15 minutes (For safety) Maintain personal safety: every shift Educate patient to report safety concerns to staff, every shift Monitor environment for contraband/sharps Medication safety: Monitor for expected outcome, potential side effects: every shift, Assess barriers to learning: every shift, Assess readiness for medication education: every shift <Angela Youssef - Last Filed: 06/02/17 18:00> - Diagnosis (1) Alcohol use disorder, severe, dependence Status: Acute Interventions: 06/02/17 18:00 * Assess 7x/week regarding severity of withdrawal * Educate regarding risks, benefits, side effects and alternatives of medications * Use Motivational Interviewing for abstinence * Use CBT for relapse prevention * Medication management for withdrawal symptoms * Encourage medication assisted treatment * (2) Moderate major depression, single episode Status: Acute Interventions: 06/02/17 18:00 * Assess/adjust medications daily and /or as needed * See patient on an individual basis 7x/week to assess symptoms of depression * Monitor for side effects & effectiveness of medications * <Aline Saldana - Last Filed: 06/04/17 10:59> Family Contact Family involvement: Family/SO is involved Family contact: Patient declines to allow family contact at present - Goals for Treatment Patient goals for treatment: "I [facility] to go to [facility] Discharge/Continuing Care - Education Needs Education Needs: Patient Medication, Patient Coping Skills, Patient Placement options, Patient Community resources - Discharge Discharge Criteria: Tolerates medication w/o severe side effects, No longer exhibiting s/s of withdrawal, Reduction of target symptoms Discharge to:: Substance Abuse Rehab - Treatment Team Participation Discussed with Family/SO: No Was Patient/Family/SO present at Treatment Team Meeting: Yes
[2017-06-01] MEDS: Multiple Vitamins Tab PO SCH (09:41)
--- NOTE | 2017-06-01 15:04 | PCM.PSYCH ---
Initial Psychiatric Evaluation - Initial Psychiatric Evaluation Type of Admission: Voluntary Legal Status: Capacity Chief Complaint (in patient's own words): "Depression" History of Present Illness and Precipitating Events: 51 yo AA male, recently , with 1 son (29 yo), unemployed on disability, currently living with mother, who presents here with severe depression and polysubstance detox. Patient attributes this to recent stressors and explains that he has recently from his on Apr 26 and he has had a hard adjustment moving back in with his mother. He feels as though his mother hold a lot of resentment towards him, and towards the fact that he has returned back home. These things have caused him much sadness over the past few weeks. During this time, he reports hearing voices that were telling him to kill himself. He denies any current SI, as these feelings have now subsided and the voices have become less pronounced. Patient reports >30 year history of EtOH use. He estimates his daily use at 6x 24oz cans of beer & 1 pint of liquor. Patient also admits to daily use of crack cocaine and tobacco 0.5pdd as well. Patient has used heroin in the past but denies current use of marijuana, heroin, opioids , xanax, PCP, LSD or MDMA. He denies having seizures in the past, but has a questionable episode of DTs in the distant past. At this time, patient reports generalized abdominal pains. Denies any n/v/d, CALVILLO, CP, SOB, diaphoresis, tremors or syncope. Detox Hx: 6x in the past Rehab Hx: 6x in the past Medical Hx: DM, HLD, glaucoma Medications:Simvastatin, Metformin, Remeron, Lexapro, Trazodone, Depakote Psych Hx: Depression, "Bipolar disorder", has had 2 prior attempts at suicide Hospitalizations: Patient reports 5-6x psychiatric hospitalizations all in [facility] Fam Hx: Father suffered from alcohol use Legal: Denies Current Medications: Active Medications Generic Name Dose Route Start Last Admin Trade Name Freq PRN Reason Stop Dose Admin Chlordiazepoxide 25 mg 06/01/17 09:00 06/01/17 11:51 Librium PO 06/06/17 08:59 25 mg Q6 ESTUARDO Administration Taper Clonidine HCl 0.1 mg 06/01/17 07:49 Catapres PO Q4H PRN Symptoms of alcohol withdrawl Escitalopram Oxalate 10 mg 06/01/17 13:00 06/01/17 13:39 Lexapro PO 10 mg DAILY ESTUARDO Administration Folic Acid 1 mg 06/01/17 10:00 06/01/17 09:41 Folic Acid PO 1 mg DAILY ESTUARDO Administration Gabapentin 300 mg 06/01/17 18:00 Neurontin PO BID ESTUARDO Hydroxyzine HCl 25 mg 06/01/17 07:56 Atarax PO Q6H PRN Anxiety Multivitamins 1 tab 06/01/17 10:00 06/01/17 09:41 Hexavitamin PO 1 tab DAILY ESTUARDO Administration Thiamine HCl 100 mg 06/01/17 10:00 06/01/17 09:41 Vitamin B1 Tab PO 100 mg DAILY ESTUARDO Administration Trazodone HCl 100 mg 06/01/17 12:48 Desyrel PO HS PRN Insomnia Past Psychiatric History - Past Psychiatric History History of ETOH/Drug Use: (+) ETOH, crack, heroin (in the past) History of Family Illness: (+) father suffered from substance abuse Pertinent Medical Hx (Current Medical&Sleep Prob, Allergies): Allergies Allergy/AdvReac Type Severity Reaction Status Date / Time No Known Allergies Allergy Verified 03/18/17 15:55 MetFORMIN [glucOPHAGE] 1,000 mg PO BID 03/18/17 Simvastatin 10 mg PO HS 03/18/17 Divalproex [Depakote DR] 250 mg PO BID #60 tcp 03/30/17 Escitalopram [Lexapro] 20 mg PO DAILY #30 tab 03/30/17 Mirtazapine [Remeron] 30 mg PO HS #30 tab 03/30/17 traZODone [Desyrel] 100 mg PO HS #60 tab 03/30/17 Review of Systems - Constitutional Constitutional: absent: Fever, Chills, Sweats, Weakness - Gastrointestinal Gastrointestinal: Abdominal Pain. absent: Diarrhea, Nausea, Vomiting - Musculoskeletal Musculoskeletal: absent: Back Pain - Psychiatric Psychiatric: Anxiety, Depression. absent: Hallucinations ((+) heard voices recently but not currently), Homicidal Ideation, Panic Attacks, Paranoia, Suicidal Ideation ((-) current SI) Mental Status Examination - Personal Presentation Personal Presentation: Looks stated age - Affect Affect: Broad - Motor Activity Motor Activity: Calm - Reliability in Providing Information Reliability in Providing Information: Good - Speech Speech: Organized - Mood Mood: Depressed - Formal Thought Process Formal Thought Process: No Impairment - Hallucinations/Delusions Additional comments: (-) none currently - Obsessions/Compulsions Obsessions: No Compulsions: No - Cognitive Functions Orientation: Person, Place, Situation, Time Sensorium: Alert Attention/Concentration: Attentive Abstract Thinking: [place] Estimate of Intelligence: Average Judgement: Imparied, as evidence by: Lack of insight into illness Memory: Recent intact, as evidence by: Ability to recall events of the day, Remote intact, as evidenced by: Abilit to recall sig. life events - Risk Risk: Suicidal, Seizure, Withdrawal, Diminished functioning - Strength & Assets Inventory Strength & Assets Inventory: Family support, Life experience, Cooperative DSM 5 DX - DSM 5 DSM 5 Diagnosis: Major depressive disorder - severe Alcohol use d/o - severe - Recommended/Plan of Treatment Treatment Recommendations and Plan of Treatment: JAMES/depression: Librium detox Gabapentin for augmentation Lexapro for depression As needed medications All risks, benefits and alternatives of the meds discussed, and the pt agreed and understood. Attend groups and activities Supportive therapy and psychoeducation [place] for abstinence CBT for relapse prevention Encourage MAT Refer to rehab or IOP, and self-help groups Individual therapy daily Encourage compliance with meds and after care Teach healthy lifestyle methods, i.e. diet, exercise, meditation 34 min Prognosis: Good with treatment Discharge Plan and Discharge Criteria: Rehab and MAT - Smoking Cessation Smoking Cessation Initiated: No
[2017-06-02] MEDS: Multiple Vitamins Tab PO SCH (10:40)
--- NOTE | 2017-06-02 12:43 | PCM.PYCHPN ---
Psychiatric Progress Note - Psychiatric Progress Note Patient seen today, length of contact: 15 min Patient Chief Complaint: "I'm still depressed" Problems Identified/Issues Discussed: The pt is seen, chart reviewed, case discussed with staff. Support given, CBT and [place] used briefly. Patient states that he is still feeling quite depressed today. As per RNs, patient mostly stays in bed and sleeps throughout the day. He does come out of the room for meals only. This morning, patient admits to mild dizziness and generalized low back pain. Denies any other symptoms. Patient improving slowly and needs more time. No SEs from medications, risks discussed. After care discussed. Medication Change: Yes (psych changes daily) Medical Record Reviewed: Yes Mental Status Examination - Cognitive Function Orientation: Person, Place, Situation, Time Memory: Intact Attention: WNL Concentration: WNL Association: WNL Fund of Knowledge: WNL - Mood Mood: Depressed - Affect Affect: Broad - Speech Speech: Appropriate - Formal Thought Process Formal Thought Process: No Impairment - Suicidal Ideation Suicidal Ideation: No - Homicidal Ideation Homicidal Ideation: No Goal/Treatment Plan - Goal/Treatment Plan Need for Continued Stay: Remain at risks for inpatient hospitalization, Severe depression anxiety, Discharge may exacerbated symptoms, Severe functional impairment Progress Toward Problem(s) and Goals/Treatment Plan: JAMES/depression: Librium detox Gabapentin for augmentation Lexapro for depression As needed medications All risks, benefits and alternatives of the meds discussed, and the pt agreed and understood. Attend groups and activities Supportive therapy and psychoeducation [place] for abstinence CBT for relapse prevention Encourage MAT Refer to rehab or IOP, and self-help groups Individual therapy daily Encourage compliance with meds and after care Teach healthy lifestyle methods, i.e. diet, exercise, meditation - Smoking Cessation Smoking Cessation Initiated: No
[2017-06-03] MEDS: Multiple Vitamins Tab PO SCH (10:52)
--- NOTE | 2017-06-03 13:17 | PCM.PYCHPN ---
Psychiatric Progress Note - Psychiatric Progress Note Patient seen today, length of contact: 16 min Patient Chief Complaint: "I'm doing okay today" Problems Identified/Issues Discussed: The pt is seen, chart reviewed, case discussed with staff. Support given, CBT and [place] used briefly. Patient reports some improvement today, stating that his mood is a little better and he is feeling less depressed. He is still noted to be sleeping much of the day. Patient was encouraged to get out of bed and participate in group activities. Denies any SI or any other symptoms. Patient improving slowly and needs more time. No SEs from medications, risks discussed. After care discussed. Medication Change: Yes (psych changes daily) Medical Record Reviewed: Yes Mental Status Examination - Cognitive Function Orientation: Person, Place, Situation, Time Memory: Intact Attention: WNL Concentration: WNL Association: WNL Fund of Knowledge: WNL - Mood Mood: Depressed - Affect Affect: Broad - Speech Speech: Appropriate - Formal Thought Process Formal Thought Process: No Impairment - Suicidal Ideation Suicidal Ideation: No - Homicidal Ideation Homicidal Ideation: No Goal/Treatment Plan - Goal/Treatment Plan Need for Continued Stay: Remain at risks for inpatient hospitalization, Severe depression anxiety, Discharge may exacerbated symptoms, Severe functional impairment Progress Toward Problem(s) and Goals/Treatment Plan: JAMES/depression: Librium detox Gabapentin for augmentation Lexapro for depression As needed medications All risks, benefits and alternatives of the meds discussed, and the pt agreed and understood. Attend groups and activities Supportive therapy and psychoeducation [place] for abstinence CBT for relapse prevention Encourage MAT Refer to rehab or IOP, and self-help groups Individual therapy daily Encourage compliance with meds and after care Teach healthy lifestyle methods, i.e. diet, exercise, meditation
[2017-06-04] MEDS: Multiple Vitamins Tab PO SCH (10:21)
--- NOTE | 2017-06-04 11:07 | PCM.PYCHPN ---
Psychiatric Progress Note - Psychiatric Progress Note Patient seen today, length of contact: 16 min Patient Chief Complaint: "I'm better" Problems Identified/Issues Discussed: The pt is seen, chart reviewed, case discussed with staff. Support given, CBT and [place] used briefly No new symptoms reported, improving slowly and needs more time No SEs from medications, risks discussed. After care discussed - will go to [facility] on Wednesday Medication Change: No Medical Record Reviewed: Yes Mental Status Examination - Cognitive Function Orientation: Person, Place, Situation, Time Memory: Intact Attention: WNL Concentration: WNL Association: WNL Fund of Knowledge: WNL - Mood Mood: Depressed - Affect Affect: Broad - Speech Speech: Appropriate - Formal Thought Process Formal Thought Process: No Impairment - Suicidal Ideation Suicidal Ideation: No - Homicidal Ideation Homicidal Ideation: No Goal/Treatment Plan - Goal/Treatment Plan Need for Continued Stay: Remain at risks for inpatient hospitalization, Severe depression anxiety, Discharge may exacerbated symptoms, Severe functional impairment Progress Toward Problem(s) and Goals/Treatment Plan: Librium detox Gabapentin for augmentation Lexapro for depression As needed medications All risks, benefits and alternatives of the meds discussed, and the pt agreed and understood. Attend groups and activities Supportive therapy and psychoeducation [place] for abstinence CBT for relapse prevention Encourage MAT Refer to rehab or IOP, and self-help groups Individual therapy daily Encourage compliance with meds and after care Teach healthy lifestyle methods, i.e. diet, exercise, meditation
[2017-06-05] MEDS: Multiple Vitamins Tab PO SCH (09:00)
[2017-06-06 07:22] VITALS: O2SAT 98
[2017-06-06] MEDS: Multiple Vitamins Tab PO SCH (09:01)
[2017-06-07 08:08] VITALS: BP 100/73; PULSE 99; RESP 18; TEMP 98.4
[2017-06-07] MEDS: Multiple Vitamins Tab PO SCH (09:04)
--- NOTE | 2017-06-07 12:01 | PCM.PYCHDC ---
Mental Status Examination - Mental Status Examination Orientation: Person Discharge Summary - Discharge Note Laboratory Data: Abnormal Lab Results 06/07/17 06/07/17 06/07/17 07:43 07:45 09:11 POC Glucose (mg/dL) 401 H* 426 H* > 500 H* Consultations:: List each consultation separately and include: 1. Reason for request. 2. Findings. 3. Follow-up Summary of Hospital Course include:: 1. Description of specific treatment plan utilized for patients during their course of treatmen. 2. Summarize the time- course for resolution of acute symptoms and/or regressed behaviors. 3. Describe issues identified and worked on during hospitalization. 4. Describe medication utilized. 5. Describe medical problems identified and treated. 6. Reassessment of suicide risk Summary of Hospital Course: 51 yo AA male, recently , with 1 son (29 yo), unemployed on disability, currently living with mother, who presents here with severe depression and polysubstance detox. Patient attributes this to recent stressors and explains that he has recently from his on Apr 26 and he has had a hard adjustment moving back in with his mother. He feels as though his mother hold a lot of resentment towards him, and towards the fact that he has returned back home. These things have caused him much sadness over the past few weeks. During this time, he reports hearing voices that were telling him to kill himself. He denies any current SI, as these feelings have now subsided and the voices have become less pronounced. Patient reports >30 year history of EtOH use. He estimates his daily use at 6x 24oz cans of beer & 1 pint of liquor. Patient also admits to daily use of crack cocaine and tobacco 0.5pdd as well. Patient has used heroin in the past but denies current use of marijuana, heroin, opioids , xanax, PCP, LSD or MDMA. He denies having seizures in the past, but has a questionable episode of DTs in the distant past. At this time, patient reports generalized abdominal pains. Denies any n/v/d, CALVILLO, CP, SOB, diaphoresis, tremors or syncope. Detox Hx: 6x in the past Rehab Hx: 6x in the past Medical Hx: DM, HLD, glaucoma Medications:Simvastatin, Metformin, Remeron, Lexapro, Trazodone, Depakote Psych Hx: Depression, "Bipolar disorder", has had 2 prior attempts at suicide Hospitalizations: Patient reports 5-6x psychiatric hospitalizations all in [facility] Fam Hx: Father suffered from alcohol use Legal: Denies - Diagnosis (1) Alcohol use disorder, severe, dependence Current Visit: Yes Status: Acute (2) Moderate major depression, single episode Current Visit: Yes Status: Acute - Final Diagnosis (DSM 5) Condition upon Discharge: FAIR Disposition: HOME/ ROUTINE Follow-up Treatment Plan: Librium detox Gabapentin for augmentation Lexapro for depression As needed medications All risks, benefits and alternatives of the meds discussed, and the pt agreed and understood. Attend groups and activities Supportive therapy and psychoeducation [place] for abstinence CBT for relapse prevention Encourage MAT Refer to rehab or IOP, and self-help groups Individual therapy daily Encourage compliance with meds and after care Teach healthy lifestyle methods, i.e. diet, exercise, meditation Prescriptions/Medication Reconciliation: Escitalopram [Lexapro] 10 mg PO DAILY #10 tab Gabapentin [Neurontin] 300 mg PO BID #60 cap GlipiZIDE [Glucotrol] 10 mg PO BID #60 tab metFORMIN [glucOPHAGE] 1,000 mg PO BIDCC #60 tab SITagliptin [Januvia] 50 mg PO DAILY #30 tab traZODone [Desyrel] 100 mg PO HS PRN #30 tab PRN Reason: Insomnia
--- NOTE | 2017-06-08 21:19 | CP.PCM.CON ---
History of Present Illness - History of Present Illness History of Present Illness: Consultation was called for abnormal blood sugar. History of present illness: 51-year-old male with history of diabetes, hypercholesteremia, admitted to the detox for alcoholic intoxication, and alcoholic detoxification. Patient was doing well in the past, for the last to 3 months he started drinking alcohol again, and came to the hospital because of that. Patient used to take medications for blood sugar. His blood sugar usually controlled in the past. Now he's having abnormal blood sugar numbers. He is having no symptoms except increased urination. No dizziness noted. No numbness tingling or other systemic symptoms. Past medical history as noted, diabetes, hypercholesterolemia and alcoholism. Allergies no known drug allergy. Personal history patient is a smoker, smokes almost less than a half pack per day, also uses alcohol. Family history noncontributory except diabetes and kidney disease. Review of system noted from the chart. On examination: HEENT PERRLA, neck supple No thyromegaly was noted and no cervical adenopathy noted Chest bilateral good air entry, no wheezing or rales noted CVS regular heart sound, no murmur Abdomen soft and no organomegaly Extremities no pedal edema, no leg swelling, pedal pulses are good. WRAPPER STRIPPER alert awake oriented x3 no functional neurological deficit. Patient's labs reviewed. Finger stick is around 400 Assessment and recommendation: 51-year-old male with history of alcoholism, diabetes and high cholesterol. I educated the patient importance of the diet, avoiding alcohol to improve the blood sugar. Diabetic diet advised. Will increase metformin 1000 milligrams twice a day, glipizide 5 milligrams twice a day, Januvia 25 milligrams daily. Patient can be can be followed up as an outpatient. Monitor the blood sugar, will follow the patient. I spoke to the PMD Past Patient History - Infectious Disease Hx of Infectious Diseases: None - Past Social History Smoking Status: Heavy Smoker > 10 Cigarettes Daily - CARDIAC Hx Hypercholesterolemia: Yes Hx Hypertension: Yes - PULMONARY Hx Tuberculosis: No - NEUROLOGICAL HX Cerebrovascular Accident: No Hx Seizures: No - ENDOCRINE/METABOLIC Hx Diabetes Mellitus Type 2: Yes - HEMATOLOGICAL/ONCOLOGICAL Hx Cancer: No Hx Human Immunodeficiency Virus (HIV): No - GENITOURINARY/GYNECOLOGICAL Hx Sexually Transmitted Disorders: No - PSYCHIATRIC Hx Substance Use: Yes - SURGICAL HISTORY Hx Surgeries: Yes Other/Comment: Bilat foot and ankle surg - ANESTHESIA Hx Anesthesia: Yes Hx Anesthesia Reactions: No Hx Malignant Hyperthermia: No Meds Home Medications: Home Medication List Medication Instructions Recorded Confirmed Type Escitalopram [Lexapro] 10 mg PO DAILY #10 tab 06/07/17 Rx Gabapentin [Neurontin] 300 mg PO BID #60 cap 06/07/17 Rx GlipiZIDE [Glucotrol] 10 mg PO BID #60 tab 06/07/17 Rx SITagliptin [Januvia] 50 mg PO DAILY #30 tab 06/07/17 Rx metFORMIN [glucOPHAGE] 1,000 mg PO BIDCC #60 tab 06/07/17 Rx traZODone [Desyrel] 100 mg PO HS PRN #30 tab 06/07/17 Rx Allergies/Adverse Reactions: Allergies Allergy/AdvReac Type Severity Reaction Status Date / Time No Known Allergies Allergy Verified 03/18/17 15:55 Results - Vital Signs Recent Vital Signs: Last Vital Signs Temp 98.4 F 06/07/17 08:07 Pulse 99 H 06/07/17 08:07 Resp 18 06/07/17 08:07 BP 100/73 06/07/17 08:07 Pulse Ox 98 06/06/17 07:21 - Labs Result Diagrams: 06/01/17 04:44 06/01/17 04:44
== END 2017-06-07 12:12 | disposition home or self-care (01) | DRG 895 ==
LOC: C.ER 01:27 → C.5E 06:11
PROVIDERS: ADMIT Psychiatry & Neurology Psychiatry; ATTEND Psychiatry & Neurology Psychiatry
PROC: HZ2ZZZZ Detoxification Services for Substance Abuse Treatment (ICD-10-PCS; principal; 2017-06-01)
PROC: HZ52ZZZ Individual Psychotherapy for Substance Abuse Treatment, Cognitive-Behavioral (ICD-10-PCS; 2017-06-01)
PROC: HZ42ZZZ Group Counseling for Substance Abuse Treatment, Cognitive-Behavioral (ICD-10-PCS; 2017-06-01)
PROC: HZ59ZZZ Individual Psychotherapy for Substance Abuse Treatment, Supportive (ICD-10-PCS; 2017-06-01)
PROC: HZ56ZZZ Individual Psychotherapy for Substance Abuse Treatment, Psychoeducation (ICD-10-PCS; 2017-06-01)
PROC: HZ46ZZZ Group Counseling for Substance Abuse Treatment, Psychoeducation (ICD-10-PCS; 2017-06-01)
DX: F10.230 Alcohol dependence with withdrawal, uncomplicated (principal); F32.1 Major depressive disorder, single episode, moderate; E11.9 Type 2 diabetes mellitus without complications; I10 Essential (primary) hypertension; E78.00 Pure hypercholesterolemia, unspecified; Y90.3 Blood alcohol level of 60-79 mg/100 ml; E78.5 Hyperlipidemia, unspecified

== ENCOUNTER 2017-09-13 23:24 | Inpatient (IN) | payer MEDICARE, MEDICAID ==
[2017-09-13 23:24] VITALS: BMI 41.1
--- NOTE | 2017-09-13 23:48 | C.PDOC ---
History Of Present Illness 51 y/o male with a PMHx of schizophrenia, brought to the ED by EMS for complaints of suicidal and homicidal ideations for 2 weeks. Patient admits he has not been taking his psychiatric medications. Also admits to drinking this evening. Otherwise denies any physical complaints at this time. Time Seen by Provider: 09/13/17 23:47 Chief Complaint (Nursing): Psychiatric Evaluation Past Medical History Vital Signs: Last Vital Signs Temp 98.6 F 09/13/17 23:34 Pulse 97 H 09/13/17 23:34 Resp 16 09/13/17 23:34 BP 117/86 09/13/17 23:34 Pulse Ox 97 09/14/17 00:14 - Medical History PMH: Bipolar Disorder, Depression, Diabetes, HTN, Hypercholesterolemia Denies: Hepatitis, HIV, Seizures, Sexually Transmitted Disease - [facility] Procedures DETOXIFICATION SERVICES FOR SUBSTANCE ABUSE TREATMENT (06/01/17) GROUP WAFER [employer]ODUCTION LEAD WORKER FOR SUBSTANCE ABUSE TREATMENT, PSYCHOEDUCATION (06/01/17) GROUP WAFER PRODUCTION LEAD WORKER FOR SUBSTANCE ABUSE, COGNITIVE BEHAVIORAL (06/01/17) GROUP PSYCHOTHERAPY (03/18/17) INDIV PSYCHOTHERAPY FOR SUBSTANCE ABUSE TREATMENT, SUPPORT (06/01/17) INDIV PSYCHOTHERAPY FOR SUBSTANCE ABUSE, COGNITIV BEHAVIORAL (06/01/17) INDIV PSYCHOTHERAPY FOR SUBSTANCE ABUSE, PSYCHOEDUCATION (06/01/17) INDIVIDUAL PSYCHOTHERAPY, SUPPORTIVE (03/18/17) MEDICATION MANAGEMENT (03/18/17) MEDS MGMT FOR SUBSTANCE ABUSE TREATMENT, OTH REPL MED (03/18/17) Family History: States: Unknown Family Hx - Social History Hx Alcohol Use: Yes Hx Substance Use: No (pt denies) - Immunization History Hx Tetanus Toxoid Vaccination: No Hx Influenza Vaccination: No Hx Pneumococcal Vaccination: No Review Of Systems Constitutional: Negative for: Fever Cardiovascular: Negative for: Chest Pain Respiratory: Negative for: Shortness of Breath Psych: Positive for: Suicidal ideation, Other (Homicidal ideation) Physical Exam - Physical Exam Appears: No Acute Distress Skin: Warm, Dry Head: Normacephalic Eye(s): bilateral: Normal Inspection Oral Mucosa: Moist Neck: Trachea Midline, Supple Chest: Symmetrical Cardiovascular: Rhythm Regular Respiratory: No Rales, No Rhonchi, No Wheezing Gastrointestinal/Abdominal: Soft, No Tenderness, No Distention Extremity: Normal ROM, No Pedal Edema Extremity: Bilateral: Atraumatic, Normal Color And Temperature Pulses: Left Dorsalis Pedis: Normal, Right Dorsalis Pedis: Normal Neurological/Psych: Oriented x3 Gait: Steady ED Course And Treatment - Laboratory Results Result Diagrams: 09/13/17 23:59 09/13/17 23:59 O2 Sat by Pulse Oximetry: 97 (RA) Pulse Ox Interpretation: Normal Progress Note: Patient placed on 1:1 observation for suicide precaution. Awaiting crisis evaluation. Blood work and urine sent. Disposition Discussed With Dr.: Erica Zhang Comment: accepted the pt on his service and took over the care at 12:50 AM Doctor Will See Patient In The: Hospital Counseled Patient/Family Regarding: Studies Performed, Diagnosis - Disposition Disposition: HOSPITALIZED Disposition Time: 23:48 Condition: FAIR Forms: [facility] [place] - Clinical Impression Clinical Impression: Alcohol abuse, Drug abuse, Bipolar 1 disorder - Scribe Statement The provider has reviewed the documentation as recorded by the Scribe (Charmaine Fernandez) Provider Attestation: All medical record entries made by the Scribe were at my direction and personally dictated by me. I have reviewed the chart and agree that the record accurately reflects my personal performance of the history, physical exam, medical decision making, and the department course for this patient. I have also personally directed, reviewed, and agree with the discharge instructions and disposition. Decision To Admit - Pt Status Changed To: Hospital Disposition Of: Inpatient - Admit Certification Admit to Inpatient:: After my assessment, the patient will require hospitalization for at least two midnights. This is because of the severity of symptoms shown, intensity of services needed, and/or the medical risk in this patient being treated as an outpatient. - InPatient: Physician Admission Certification: I certify that this patient requires 2 or more midnights of care for the following reason:: After my assessment, the patient will require hospitalization for at least two midnights. This is because of the severity of symptoms shown, intensity of services needed, and/or the medical risk in this patient being treated as an outpatient. - . Bed Request Type: Psychiatry Admitting Physician: Erica Zhang Patient Diagnosis: Alcohol abuse, Drug abuse, Bipolar 1 disorder
[2017-09-14 00:06] LABS: BASO % 0.6 % (0.0-2.0); EOS % 0.3 % (0.0-4.0); HEMOGLOBIN 13.4 g/dL (12.0-18.0); LYMPH # 2.4 K/uL (1.0-4.3); LYMPH % 44.9 % (20.0-40.0); MEAN CELL VOLUME 87.3 fL (80.0-94.0); MEAN CORPUSCULAR HEMOGLOBIN 29.6 pg (27.0-31.0); MEAN CORPUSCULAR HGB CONC 33.9 g/dL (33.0-37.0); MEAN PLATELET VOLUME 8.2 fL (7.2-11.7); MONO # 0.4 K/uL (0.0-0.8); MONO % 7.3 % (0.0-10.0); NEUT # 2.5 K/uL (1.8-7.0); NEUT % 46.9 % (50.0-75.0); NRBC % 0.1 % (0.0-2.0); RBC 4.51 Mil/uL (4.40-5.90); RED CELL DISTRIBUTION WIDTH 15.6 % (11.5-14.5); WHITE BLOOD COUNT 5.4 K/uL (4.8-10.8)
[2017-09-14 00:13] LABS: SQUAMOUS EPITHIAL < 1 /hpf (0-5); URINE BILIRUBIN NEGATIVE (NEGATIVE); URINE BLOOD NEGATIVE (NEGATIVE); URINE CLARITY Hazy (Clear); URINE COLOR Yellow (YELLOW); URINE GLUCOSE (UA) NORMAL (Normal); URINE LEUKOCYTE ESTERASE NEG Leu/uL (Negative); URINE PROTEIN 1+ mg/dL (NEGATIVE); URINE UROBILINOGEN NORMAL mg/dL (0.2-1.0)
[2017-09-14 00:21] LABS: ALB/GLOB RATIO 1.5 (1.0-2.1); ALBUMIN 4.8 g/dL (3.5-5.0); ALT/SGPT 44 U/L (21-72); AST/SGOT 31 U/L (17-59); BARBITURATES, UR NEGATIVE (NEGATIVE); BENZODIAZEPINES, UR NEGATIVE (NEGATIVE); BLOOD UREA NITROGEN 6 mg/dL (9-20); CALCIUM 9.2 mg/dl (8.6-10.4); GFR AFRICAN-AMERICAN > 60; GFR NON-AFRICAN AMERICAN > 60; OPIATES, UR NEGATIVE (NEGATIVE); PHENCYCLIDINE, UR NEGATIVE (NEGATIVE)
--- NOTE | 2017-09-14 05:59 | PCM.BM ---
<Yamil Newman - Last Filed: 09/14/17 05:59> Treatment Plan Problems - Problems identified on initial assessmt Depression Date Initiated: 09/14/17 Time Initiated: 02:00 Assessment reference: NA Status: Active Treatment assets and liabiliti Patient Assests: adapts well, cooperative, ADL independent, negotiates basic needs, cognitively intact Patient Liabilities: substance abuse (Cocaine, ETOH) - Milieu Protocol Maintain good personal hygiene: daily Encourage regular showers, daily Remind patient to perform daily oral care, every shift Assist patient to perform ADL's Conduct patient checks and document Observation sheet: Q15 minutes Maintain personal safety: every shift Educate patient to report safety concerns to staff, every shift Monitor environment for contraband/sharps Medication safety: Monitor for expected outcome, potential side effects: every shift, Assess barriers to learning: every shift, Assess readiness for medication education: every shift <Gely Valdovinos - Last Filed: 09/15/17 14:47> Family Contact Family involvement: Patient does not wish Family/SO involvement Family contact: Patient declines to allow family contact at present - Goals for Treatment Patient goals for treatment: [facility] Discharge/Continuing Care - Education Needs Education Needs: Patient Medication, Patient Diagnosis/Disease Process, Patient Coping Skills - Discharge Discharge Criteria: Free of Suicidal thoughts, Normal sleep pattern, Ability to care for self, No longer exhibiting s/s of withdrawal, Reduction of target symptoms Discharge to:: Substance Abuse Rehab - Treatment Team Participation Discussed with Family/SO: No Was Patient/Family/SO present at Treatment Team Meeting: Yes <Erica Zhang - Last Filed: 09/17/17 11:19> - Diagnosis (1) Bipolar 1 disorder Status: Acute Interventions: 09/17/17 11:19 * Assess/adjust medications daily and /or as needed * See patient on an individual basis 7x/week to assess level of manic behaviors and stability * Discuss risks, benefits, side effects and alternatives of medications * (2) Alcohol abuse Status: Acute Interventions: 09/17/17 11:19 * Assess 7x/week regarding severity of withdrawal * Educate regarding risks, benefits, side effects and alternatives of medications * Use Motivational Interviewing for abstinence * Use CBT for relapse prevention * Medication management for withdrawal symptoms * Encourage medication assisted treatment *
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
[2017-09-14] MEDS: Multiple Vitamins Tab PO SCH (10:46)
[2017-09-14] MEDS: Rosuvastatin Calcium 2.5 mg Tab PO SCH (21:32)
[2017-09-15] MEDS: Multiple Vitamins Tab PO SCH (09:19)
--- NOTE | 2017-09-15 11:04 | PCM.PYCHPN ---
Psychiatric Progress Note - Psychiatric Progress Note Patient seen today, length of contact: 15 min Patient Chief Complaint: I was feeling depressed and suicidal.' Problems Identified/Issues Discussed: Patient seen and evaluated, chart reviewed and discussed with the nurse. Patient remained irritable and agitated. He still reports racing of thoughts and flight of ideas. He remained delusional and suspicious. Patient reports withdrawal symptoms including nausea, headaches, cramps and sweating. However, He is taking medication and denies any side effects Patient is compliant with medications and denies any side effects. Symptoms are improving but need more time to stabilize. Support and psychoeducation given. Medication Change: Yes (start Geodon) Medical Record Reviewed: Yes Mental Status Examination - Cognitive Function Orientation: Person, Place, Situation, Time Memory: Intact Attention: WNL Concentration: Poor Association: Loose Fund of Knowledge: WNL - Mood Mood: Depressed, Anxious - Affect Affect: Constricted, Depressed - Speech Speech: Soft - Formal Thought Process Formal Thought Process: Hallucinations, Delusions, Paranoia - Suicidal Ideation Suicidal Ideation: No - Homicidal Ideation Homicidal Ideation: Yes Goal/Treatment Plan - Goal/Treatment Plan Need for Continued Stay: Severe depression anxiety, Severe functional impairment Progress Toward Problem(s) and Goals/Treatment Plan: Bipolar disorder depressed with psychotic features Alcohol use disorder severe Alcohol withdrawal Cocaine use disorder severe -CBT -Psychoeducation -Supportive therapy, group therapy, individual therapy -Neurontin 300 mg PO BID -Trazodone 100 mg by mouth daily at bedtime -Librium when necessary -Librium taper -Folic acid/thiamine/multivitamin -Use [place] for abstinence -Geodon 20 mg PO BID DM -Continue prescribed medications -Monitor for signs and symptoms Hypercholesterolimia -Continue prescribed medications -Monitor for signs and symptoms - Smoking Cessation Smoking Cessation Initiated: No
[2017-09-15] MEDS: Rosuvastatin Calcium 2.5 mg Tab PO SCH (22:35)
[2017-09-16] MEDS ORDERED: Pneumococcal 23-Valent Vaccine IM ONE (10:00)
[2017-09-16] MEDS: Multiple Vitamins Tab PO SCH (10:30)
--- NOTE | 2017-09-16 14:18 | PCM.PYCHPN ---
Psychiatric Progress Note - Psychiatric Progress Note Patient seen today, length of contact: 15 min Patient Chief Complaint: I was feeling depressed.' Problems Identified/Issues Discussed: Patient seen and evaluated, chart reviewed and discussed with the nurse. Patient remained irritable and agitated. He still reports racing of thoughts and flight of ideas. He remained delusional and suspicious. Patient reports withdrawal symptoms including nausea, headaches, cramps and sweating. However, He is taking medication and denies any side effects Patient is compliant with medications and denies any side effects. Symptoms are improving but need more time to stabilize. Support and psychoeducation given Medication Change: Yes (Increase Geodon) Medical Record Reviewed: Yes Mental Status Examination - Cognitive Function Orientation: Person, Place, Situation, Time Memory: Intact Attention: WNL Concentration: Poor Association: Loose Fund of Knowledge: Poor - Mood Mood: Depressed, Anxious - Affect Affect: Constricted, Depressed - Speech Speech: Soft - Formal Thought Process Formal Thought Process: Hallucinations, Delusions, Paranoia - Suicidal Ideation Suicidal Ideation: No - Homicidal Ideation Homicidal Ideation: No Goal/Treatment Plan - Goal/Treatment Plan Need for Continued Stay: Severe depression anxiety, Severe functional impairment Progress Toward Problem(s) and Goals/Treatment Plan: Bipolar disorder depressed with psychotic features Alcohol use disorder severe Alcohol withdrawal Cocaine use disorder severe -CBT -Psychoeducation -Supportive therapy, group therapy, individual therapy -Neurontin 300 mg PO BID -Trazodone 100 mg by mouth daily at bedtime -Folic acid/thiamine/multivitamin -Librium taper -Use SD for abstinence -Geodon 20 mg PO Daily -Geodon 40 mg PO QHS DM -Continue prescribed medications -Monitor for signs and symptoms Hypercholesterolimia -Continue prescribed medications -Monitor for signs and symptoms
[2017-09-16] MEDS: Rosuvastatin Calcium 2.5 mg Tab PO SCH (22:33)
[2017-09-17] MEDS: Multiple Vitamins Tab PO SCH (09:12)
[2017-09-17] MEDS: Rosuvastatin Calcium 2.5 mg Tab PO SCH (21:08)
--- NOTE | 2017-09-18 00:39 | PCM.PYCHPN ---
Psychiatric Progress Note - Psychiatric Progress Note Patient seen today, length of contact: 15 min Patient Chief Complaint: I m feeling anxious' Problems Identified/Issues Discussed: Patient seen and evaluated, chart reviewed and discussed with the nurse. Patient reports some improvement in his mood but still reports racing of thoughts and flight of ideas. He appeared less delusional and less suspicious. Patient reports withdrawal symptoms including nausea, headaches, cramps and sweating. However, he is taking medication and denies any side effects Patient is compliant with medications and denies any side effects. Symptoms are improving but need more time to stabilize. Support and psychoeducation given Medication Change: Yes (Increase [place]helle) Medical Record Reviewed: Yes Mental Status Examination - Cognitive Function Orientation: Person, Place, Situation, Time Memory: Intact Attention: WNL Concentration: WNL Association: Loose Fund of Knowledge: Poor - Mood Mood: Depressed, Anxious - Affect Affect: Constricted, Depressed - Speech Speech: Soft - Formal Thought Process Formal Thought Process: Hallucinations, Delusions, Loosening of associations - Suicidal Ideation Suicidal Ideation: No - Homicidal Ideation Homicidal Ideation: No Goal/Treatment Plan - Goal/Treatment Plan Need for Continued Stay: Severe depression anxiety, Severe functional impairment Progress Toward Problem(s) and Goals/Treatment Plan: Bipolar disorder depressed with psychotic features Alcohol use disorder severe Alcohol withdrawal Cocaine use disorder severe -CBT -Psychoeducation -Supportive therapy, group therapy, individual therapy -Neurontin 300 mg PO BID -Trazodone 100 mg by mouth daily at bedtime -Folic acid/thiamine/multivitamin -Librium taper -Use AL for abstinence -Geodon 40 mg PO BID DM -Continue prescribed medications -Monitor for signs and symptoms Hypercholesterolimia -Continue prescribed medications -Monitor for signs and symptoms - Smoking Cessation Smoking Cessation Initiated: No
[2017-09-18] MEDS: Multiple Vitamins Tab PO SCH (09:22)
--- NOTE | 2017-09-18 18:42 | PCM.PYCHPN ---
Psychiatric Progress Note - Psychiatric Progress Note Patient seen today, length of contact: 15 min Problems Identified/Issues Discussed: Patient seen, chart reviewed, case discussed with the staff. Issues related to illness and treatment were discussed with the patient and staff. Reported compliant with treatment with no adverse affects. Tolerating treatment very well. Feeling better but still complaining about some withdrawal symptoms including diarrhea and abdominal cramps. Will call medical consult. Aftercare discussed with the patient. At the time of evaluation, patient was awake alert oriented 3, had no delusions , no auditory or visual hallucinations, no suicidal ideations or homicidal ideations. Medical Problems: Diabetes mellitus Diagnostic Results: Reviewed DSM 5 Symptoms Update: Some improvement with treatment Medication Change: No Medical Record Reviewed: Yes Consults ordered or reviewed: Medical consult for diarrhea and abdominal pain. Patient got few Imodium, still complaining about diarrhea and abdominal pain. Mental Status Examination - Cognitive Function Orientation: Person, Place, Situation, Time Memory: Intact Attention: WNL Concentration: WNL Association: WNL Fund of Knowledge: WN Decription of patient's judgement and insights: Fair - Mood Mood: Depressed - Affect Affect: Constricted - Speech Speech: Soft - Formal Thought Process Formal Thought Process: Delusions, Loosening of associations - Suicidal Ideation Suicidal Ideation: No - Homicidal Ideation Homicidal Ideation: No Goal/Treatment Plan - Goal/Treatment Plan Need for Continued Stay: Remain at risks for inpatient hospitalization, Discharge may exacerbated symptoms, Severe functional impairment Progress Toward Problem(s) and Goals/Treatment Plan: Patient education. Supportive therapy. Internal medication consult. We'll DC Imodium. Continue rest of the treatment as before. Estimated Date of D/C: 09/20/17 - Smoking Cessation Smoking Cessation Initiated: No
[2017-09-18] MEDS: Rosuvastatin Calcium 2.5 mg Tab PO SCH (21:03)
--- NOTE | 2017-09-18 21:59 | CP.PCM.CON ---
<Sunshine Lui AntonioMayur - Last Filed: 09/19/17 03:00> History of Present Illness - History of Present Illness History of Present Illness: Consult note CC: diarrhea HPI: Patient is a 51 year old male with a history of DM, HLD, BPH, bipolar disorder, arthritis, and glaucoma, who originally presented to [facility] with suicidal ideation, alcohol abuse and cocaine abuse. Patient started having diarrhea two days ago, approximately 7-8 BMs per day. Patient describes them as watery bowel movements with associated periumbilical and left lower quadrant pain. He admits to feeling dizzy when changing position and occasionally notes a small amount of blood on toilet paper, but otherwise denies remaining review of systems. Patient denies fevers, nausea, vomiting, blood in stool, melena, hematochezia, hematuria, dysuria, headaches, chest pain, dyspnea, leg pain and leg swelling. PMHx: DM, HLD, BPH, glaucoma, bipolar, kevin, arthritis SurgHx: foot surgery in 1995 FamHx: Father- [place], ESRD/HD SocHx: 1/2-3/4ppd x30+ years; three 24-oz beers every other day for many years; snorts cocaine ($20 worth) once a week; denies IVDU; unemployed, on disability for bipolar disorder; lives in an apartment with fmaily Allergies: NKDA Medications: Metformin 1000mg PO BID, "a cholesterol medication", Flomax, eye drops, and percocet 1 tab TID. Review of Systems - Constitutional Constitutional: absent: Fever, Headache - EENT Ears: Dizziness (with changing positions) - Cardiovascular Cardiovascular: absent: Chest Pain, Dyspnea, Edema, Leg Edema, Palpitations, Rapid Heart Rate - Respiratory Respiratory: absent: Cough, Dyspnea - Gastrointestinal Gastrointestinal: Abdominal Pain, Diarrhea. absent: Constipation, Hematochezia , Melena, Nausea, Vomiting - Genitourinary Genitourinary: absent: Dysuria, Hematuria - Neurological Neurological: Dizziness (with changing positions). absent: Headaches - Endocrine Endocrine: absent: Palpitations Past Patient History - Infectious Disease Hx of Infectious Diseases: None - Past Social History Smoking Status: Heavy Smoker > 10 Cigarettes Daily - CARDIAC Hx Cardiac Disorders: No Hx Hypertension: Yes (Pt did not report this to Un[facility]igned.) - PULMONARY Hx Tuberculosis: No - NEUROLOGICAL HX Cerebrovascular Accident: No Hx Seizures: No - ENDOCRINE/METABOLIC Hx Diabetes Mellitus Type 2: Yes - HEMATOLOGICAL/ONCOLOGICAL Hx Cancer: No Hx Human Immunodeficiency Virus (HIV): No - GENITOURINARY/GYNECOLOGICAL Hx Sexually Transmitted Disorders: No - PSYCHIATRIC Hx Substance Use: Yes - SURGICAL HISTORY Hx Surgeries: Yes Other/Comment: Bilat foot and ankle surg - ANESTHESIA Hx Anesthesia: Yes Hx Anesthesia Reactions: No Hx Malignant Hyperthermia: No Meds Allergies/Adverse Reactions: Allergies Allergy/AdvReac Type Severity Reaction Status Date / Time No Known Allergies Allergy Verified 08/07/17 13:36 - Medications Medications: Current Medications Chlordiazepoxide (Librium) 25 mg PO DAILY [facility] PRN Reason: Taper Stop: 09/19/17 11:59 Last Admin: 09/18/17 09:20 Dose: 25 mg Chlordiazepoxide (Librium) 25 mg PO Q4H PRN PRN Reason: Alcohol Withdrawal Clonidine HCl (Catapres) 0.1 mg PO Q4H PRN PRN Reason: Symptoms of alcohol withdrawl Folic Acid (Folic Acid) 1 mg PO DAILY [facility] Last Admin: 09/18/17 09:20 Dose: 1 mg Gabapentin (Neurontin) 300 mg PO BID [facility] Last Admin: 09/18/17 17:01 Dose: 300 mg Glipizide (Glucotrol) 10 mg PO BID [facility] Last Admin: 09/18/17 17:01 Dose: 10 mg Ibuprofen (Motrin Tab) 600 mg PO TID PRN PRN Reason: Pain, moderate (4-7) Last Admin: 09/17/17 08:16 Dose: 600 mg [facility] Last Admin: 09/18/17 16:13 Dose: 1,000 mg Multivitamins (Hexavitamin) 1 tab PO DAILY [facility] Last Admin: 09/18/17 09:22 Dose: 1 tab Rosuvastatin Calcium (Crestor) 2.5 mg PO HS [facility] Last Admin: 09/18/17 21:03 Dose: 2.5 mg Sitagliptin Phosphate (Januvia) 50 mg PO DAILY [facility] Last Admin: 09/18/17 09:19 Dose: 50 mg Thiamine HCl (Vitamin B1 Tab) 100 mg PO DAILY [facility] Last Admin: 09/18/17 09:20 Dose: 100 mg Trazodone HCl (Desyrel) 100 mg PO HS PRN PRN Reason: Insomnia Last Admin: 09/18/17 21:04 Dose: 100 mg Ziprasidone (Geodon Cap) 40 mg PO QPM [facility] Last Admin: 09/18/17 17:01 Dose: 40 mg Ziprasidone (Geodon Cap) 40 mg PO DAILY [facility] Last Admin: 09/18/17 09:25 Dose: 40 mg Physical Exam - Constitutional Appears: No Acute Distress - Head Exam Head Exam: ATRAUMATIC, NORMAL INSPECTION - Eye Exam Eye Exam: EOMI, Normal appearance, PERRL - ENT Exam ENT Exam: Mucous Membranes Moist - Neck Exam Neck exam: Positive for: Full Rom - Respiratory Exam Respiratory Exam: Clear to Auscultation Bilateral, NORMAL BREATHING PATTERN. absent: Rales, Rhonchi, Wheezes, Respiratory Distress - Cardiovascular Exam Cardiovascular Exam: REGULAR RHYTHM, +S1, +S2 - GI/Abdominal Exam GI & Abdominal Exam: Hyperactive Bowel Sounds, Soft, Tenderness (periumbilical and LLQ). absent: Distended, Firm, Mass - Extremities Exam Extremities exam: Positive for: normal inspection, pedal pulses present. Negative for: pedal edema, tenderness - Back Exam Back exam: NORMAL INSPECTION. absent: CVA tenderness (L), CVA tenderness (R) - Neurological Exam Neurological exam: Alert, Oriented x3 - Psychiatric Exam Psychiatric exam: Normal Affect, Normal Mood - Skin Skin Exam: Dry, Intact, Normal Color, Warm Results - Vital Signs Recent Vital Signs: Last Vital Signs Temp 97.9 F 09/18/17 07:14 Pulse 93 H 09/18/17 16:02 Resp 20 09/18/17 07:14 BP 98/64 L 09/18/17 16:02 Pulse Ox 97 09/18/17 07:14 - Labs Result Diagrams: 09/19/17 02:24 09/19/17 02:24 Labs: Laboratory Results - last 24 hr 09/17/17 09/18/17 09/18/17 16:44 07:54 16:16 POC Glucose (mg/dL) 132 H 158 H 138 H Assessment & Plan (1) Diarrhea Assessment and Plan: Stool culture: f/u Stool occult: f/u Ova and parasite: f/u Fecal leukocytes: f/u C. Diff: f/u Abdomen/pelvic CT: f/u results Encouraged increased hydrate/PO intake of water. Status: Acute <Keswani,Venkata P - Last Filed: 09/19/17 06:03> Meds - Medications Medications: Current Medications Chlordiazepoxide (Librium) 25 mg PO DAILY [facility] PRN Reason: Taper Stop: 09/19/17 11:59 Last Admin: 09/18/17 09:20 Dose: 25 mg Chlordiazepoxide (Librium) 25 mg PO Q4H PRN PRN Reason: Alcohol Withdrawal Clonidine HCl (Catapres) 0.1 mg PO Q4H PRN PRN Reason: Symptoms of alcohol withdrawl Folic Acid (Folic Acid) 1 mg PO DAILY [facility] Last Admin: 09/18/17 09:20 Dose: 1 mg Gabapentin (Neurontin) 300 mg PO BID [facility] Last Admin: 09/18/17 17:01 Dose: 300 mg Glipizide (Glucotrol) 10 mg PO BID [facility] Last Admin: 09/18/17 17:01 Dose: 10 mg Ibuprofen (Motrin Tab) 600 mg PO TID PRN PRN Reason: Pain, moderate (4-7) Last Admin: 09/17/17 08:16 Dose: 600 mg Metformin HCl (Glucophage) 1,000 mg PO BIDCC [facility] Last Admin: 09/18/17 16:13 Dose: 1,000 mg Multivitamins (Hexavitamin) 1 tab PO DAILY [facility] Last Admin: 09/18/17 09:22 Dose: 1 tab Rosuvastatin Calcium (Crestor) 2.5 mg PO HS [facility] Last Admin: 09/18/17 21:03 Dose: 2.5 mg Sitagliptin Phosphate (Januvia) 50 mg PO DAILY [facility] Last Admin: 09/18/17 09:19 Dose: 50 mg Thiamine HCl (Vitamin B1 Tab) 100 mg PO DAILY [facility] Last Admin: 09/18/17 09:20 Dose: 100 mg Trazodone HCl (Desyrel) 100 mg PO HS PRN PRN Reason: Insomnia Last Admin: 09/18/17 21:04 Dose: 100 mg Ziprasidone (Geodon Cap) 40 mg PO QPM [facility] Last Admin: 09/18/17 17:01 Dose: 40 mg Ziprasidone (Geodon Cap) 40 mg PO DAILY [facility] Last Admin: 09/18/17 09:25 Dose: 40 mg Results - Vital Signs Recent Vital Signs: Last Vital Signs Temp 97.9 F 09/18/17 07:14 Pulse 93 H 09/18/17 16:02 Resp 20 09/18/17 07:14 BP 98/64 L 09/18/17 16:02 Pulse Ox 97 09/18/17 07:14 - Labs Result Diagrams: 09/19/17 02:24 09/19/17 02:24 Labs: Laboratory Results - last 24 hr 09/18/17 09/18/17 09/19/17 07:54 16:16 02:22 WBC RBC Hgb Hct MCV MCH MCHC RDW Plt Count MPV Neut % (Auto) Lymph % (Auto) [place] % (Auto) Eos % (Auto) Baso % (Auto) Neut # (Auto) Lymph # (Auto) [place] # (Auto) Eos # (Auto) Baso # (Auto) Sodium Potassium Chloride Carbon Dioxide Anion Gap BUN Creatinine Est GFR ( Amer) Est GFR (Non-Af Amer) POC Glucose (mg/dL) 158 H 138 H Random Glucose Calcium Phosphorus Magnesium Total Bilirubin AST ALT Alkaline Phosphatase Total Protein Albumin Globulin Albumin/Globulin Ratio Stool Occult Blood Negative 09/19/17 09/19/17 02:24 02:24 WBC 6.0 RBC 4.52 Hgb 13.3 Hct 39.9 MCV 88.4 MCH 29.5 MCHC 33.4 RDW 15.9 H Plt Count 247 MPV 8.9 Neut % (Auto) 57.8 Lymph % (Auto) 30.6 [place] % (Auto) 9.0 Eos % (Auto) 2.0 Baso % (Auto) 0.6 Neut # (Auto) 3.5 Lymph # (Auto) 1.8 [place] # (Auto) 0.5 Eos # (Auto) 0.1 Baso # (Auto) 0.0 Sodium 140 Potassium 4.2 Chloride 102 Carbon Dioxide 25 Anion Gap 17 BUN 11 Creatinine 0.9 Est GFR ( Amer) > 60 Est GFR (Non-Af Amer) > 60 POC Glucose (mg/dL) Random Glucose 178 H Calcium 8.9 Phosphorus 4.6 H Magnesium 1.6 Total Bilirubin 0.3 AST 19 ALT 32 Alkaline Phosphatase 88 Total Protein 6.9 Albumin 4.1 Globulin 2.8 Albumin/Globulin Ratio 1.5 Stool Occult Blood Attending/Attestation - Attestation I have personally seen and examined this patient.: Yes I have fully participated in the care of the patient.: Yes I have reviewed all pertinent clinical information: Yes Notes (Text): 09/19/17 06:00 A/w suicidal ideation, h/o intermittent cocaine and alcohol abuse, consulted for symptoms of diarrhea started in hospital. On exam tender, in area of colon on left side descending and transverse colon area. H/o dm on oha Plan Labs to check renal function CT abd/pelvis Stool w/u. If inflammation on the CT may need medical transfer/iv abx.
[2017-09-19 02:28] LABS: BASO % 0.6 % (0.0-2.0); EOS # 0.1 K/uL (0.0-0.7); HEMOGLOBIN 13.3 g/dL (12.0-18.0); LYMPH # 1.8 K/uL (1.0-4.3); LYMPH % 30.6 % (20.0-40.0); MEAN CELL VOLUME 88.4 fL (80.0-94.0); MEAN CORPUSCULAR HEMOGLOBIN 29.5 pg (27.0-31.0); MEAN CORPUSCULAR HGB CONC 33.4 g/dL (33.0-37.0); MEAN PLATELET VOLUME 8.9 fL (7.2-11.7); MONO # 0.5 K/uL (0.0-0.8); NEUT # 3.5 K/uL (1.8-7.0); NEUT % 57.8 % (50.0-75.0); RBC 4.52 Mil/uL (4.40-5.90); RED CELL DISTRIBUTION WIDTH 15.9 % (11.5-14.5)
[2017-09-19 02:52] LABS: ALB/GLOB RATIO 1.5 (1.0-2.1); ALBUMIN 4.1 g/dL (3.5-5.0); ALT/SGPT 32 U/L (21-72); AST/SGOT 19 U/L (17-59); BLOOD UREA NITROGEN 11 mg/dL (9-20); CALCIUM 8.9 mg/dl (8.6-10.4); GFR AFRICAN-AMERICAN > 60; GFR NON-AFRICAN AMERICAN > 60
[2017-09-19 09:26] LABS: C DIFF TOXIN A B NEGATIVE (NEGATIVE)
[2017-09-19] MEDS ORDERED: Iohexol 240 (50 ml) PO ONE (10:00)
[2017-09-19] MEDS: Multiple Vitamins Tab PO SCH ×2 (10:22→12:32)
[2017-09-19 10:30] LABS: FECAL LEUKOCYTES NEGATIVE (NEGATIVE)
[2017-09-19] MEDS ORDERED: Iodixanol 320 MG/ML 200 ML BOTTLE IV ONE (10:52)
--- NOTE | 2017-09-19 13:33 | CT ---
PROCEDURE: CT Abdomen and Pelvis with contrast HISTORY: colitis COMPARISON: None. TECHNIQUE: CT scan of the abdomen and pelvis was performed after administration of intravenous contrast. Oral contrast was administered. Coronal and sagittal reformatted images were obtained. Contrast dose: 100 mL Visipaque Radiation dose: Total exam DLP = 95.55 mGy-cm. This CT exam was performed using one or more of the following dose reduction techniques: Automated exposure control, adjustment of the mA and/or kV according to patient size, and/or use of iterative reconstruction technique. FINDINGS: LOWER THORAX: There is dependent atelectasis in the lung bases. LIVER: The liver is normal in size and there is homogeneous enhancement. No gross lesion or ductal dilatation. GALLBLADDER AND BILE DUCTS: No calcified gallstones. PANCREAS: Normal in size with homogeneous enhancement. No gross lesion or ductal dilatation. SPLEEN: Normal in size with homogeneous enhancement. There is a 6 mm low-attenuation lesion in the posterior lower pole, too small to characterize by CT criteria. ADRENALS: No discrete nodule. KIDNEYS AND URETERS: Normal in size with homogeneous enhancement. There are multiple small subcentimeter low-attenuation lesions in both kidneys, statistically most compatible with simple cortical cysts, the largest in the right upper pole measures 1.5 cm. No hydronephrosis. No solid mass. VASCULATURE: No aortic aneurysm. BOWEL: The small bowel loops are normal in caliber. There is an apparent diffuse circumferential mural thickening in the colon with mild pericolonic inflammatory changes. There is also extensive colonic diverticulosis. No bowel dilatation or obstruction. APPENDIX: Normal appendix. PERITONEUM: No free fluid. No free air. LYMPH NODES: No enlarged lymph nodes. BLADDER: Grossly normal in appearance. REPRODUCTIVE: There is mild enlargement of the prostate gland with central coarse calcifications. Please correlate with PSA levels. BONES: No acute fracture. Within normal limits for the patient's age. OTHER FINDINGS: None. IMPRESSION: 1. Extensive colonic diverticulosis. Apparent diffuse mural thickening in the colon with mild pericolonic inflammatory changes which may represent nonspecific infectious/ inflammatory colitis in the appropriate clinical setting. Evaluation of the conus limited as oral contrast has not progressed to the colon at the time of examination and underdistention could also appear as mural thickening. Clinical follow-up is advised. 2. Additional non acute findings as described above.
--- NOTE | 2017-09-19 18:32 | PCM.PYCHPN ---
Psychiatric Progress Note - Psychiatric Progress Note Patient seen today, length of contact: 15 min Patient Chief Complaint: I'm feeling little better. Problems Identified/Issues Discussed: Patient seen, chart reviewed, case discussed with the staff. Issues related to illness and treatment were discussed with the patient and staff. Reported compliant with treatment with no adverse affects. Tolerating treatment very well. Feeling better but still complaining about some withdrawal symptoms including diarrhea and abdominal cramps. Patient was seen by internal medicine and later went for CT abdomen with contrast. Aftercare discussed with the patient. At the time of evaluation, patient was awake alert oriented 3, had no delusions , no auditory or visual hallucinations, no suicidal ideations or homicidal ideations. Medical Problems: Diabetes mellitus Diagnostic Results: Reviewed DSM 5 Symptoms Update: Some improvement with treatment. Medication Change: No Medical Record Reviewed: Yes Consults ordered or reviewed: Reviewed Mental Status Examination - Cognitive Function Orientation: Person, Place, Situation, Time Memory: Intact Attention: WNL Concentration: WNL Association: WNL Fund of Knowledge: WN Decription of patient's judgement and insights: Fair - Mood Mood: Depressed (Less than before) - Affect Affect: Constricted - Speech Speech: Soft - Formal Thought Process Formal Thought Process: Delusions, Loosening of associations - Suicidal Ideation Suicidal Ideation: No - Homicidal Ideation Homicidal Ideation: No Goal/Treatment Plan - Goal/Treatment Plan Need for Continued Stay: Remain at risks for inpatient hospitalization, Discharge may exacerbated symptoms, Severe functional impairment Progress Toward Problem(s) and Goals/Treatment Plan: Patient education. Supportive therapy Continue treatment as before. Estimated Date of D/C: 09/20/17 - Smoking Cessation Smoking Cessation Initiated: No
--- NOTE | 2017-09-19 18:48 | CP.PCM.PN ---
Subjective - Date & Time of Evaluation Date of Evaluation: 09/19/17 Time of Evaluation: 18:45 - Subjective Subjective: seen and examined by me.Patient had dinner,denies abdominal pain,tolerating diet ,no nausea,no vomting No fever,no leukocytosis,state that no diarrhea stool Ob negative,stool leukocytes negative,stool cd negative Objective - Vital Signs/Intake and Output Vital Signs (last 24 hours): Temp Pulse Resp BP Pulse Ox 97.8 F 90 20 100/63 98 09/19/17 06:41 09/19/17 16:12 09/19/17 06:41 09/19/17 16:12 09/19/17 06:41 - Medications Medications: Current Medications Chlordiazepoxide (Librium) 25 mg PO Q4H PRN PRN Reason: Alcohol Withdrawal Last Admin: 09/19/17 12:33 Dose: 25 mg Clonidine HCl (Catapres) 0.1 mg PO Q4H PRN PRN Reason: Symptoms of alcohol withdrawl Folic Acid (Folic Acid) 1 mg PO DAILY [facility] Last Admin: 09/19/17 12:34 Dose: 1 mg Gabapentin (Neurontin) 300 mg PO BID [facility] Last Admin: 09/19/17 17:38 Dose: 300 mg Glipizide (Glucotrol) 10 mg PO BID [facility] Last Admin: 09/19/17 17:39 Dose: 10 mg Ibuprofen (Motrin Tab) 600 mg PO TID PRN PRN Reason: Pain, moderate (4-7) Last Admin: 09/17/17 08:16 Dose: 600 mg [facility] Last Admin: 09/19/17 08:26 Dose: Not Given Multivitamins (Hexavitamin) 1 tab PO DAILY [facility] Last Admin: 09/19/17 12:32 Dose: 1 tab Rosuvastatin Calcium (Crestor) 2.5 mg PO HS [facility] Last Admin: 09/18/17 21:03 Dose: 2.5 mg Sitagliptin Phosphate (Januvia) 50 mg PO DAILY [facility] Last Admin: 09/19/17 12:36 Dose: 50 mg Thiamine HCl (Vitamin B1 Tab) 100 mg PO DAILY [facility] Last Admin: 09/19/17 12:34 Dose: 100 mg Trazodone HCl (Desyrel) 100 mg PO HS PRN PRN Reason: Insomnia Last Admin: 09/18/17 21:04 Dose: 100 mg Ziprasidone (Geodon Cap) 40 mg PO QPM [facility] Last Admin: 09/19/17 17:39 Dose: 40 mg Ziprasidone (Geodon Cap) 40 mg PO DAILY [facility] Last Admin: 09/19/17 12:35 Dose: 40 mg - Labs Labs: 09/19/17 02:24 09/19/17 02:24 - Constitutional Appears: Non-toxic - Head Exam Head Exam: NORMAL INSPECTION - Eye Exam Eye Exam: Normal appearance - ENT Exam ENT Exam: Mucous Membranes Moist - Neck Exam Neck Exam: Full ROM - Respiratory Exam Respiratory Exam: Clear to Ausculation Bilateral, NORMAL BREATHING PATTERN - Cardiovascular Exam Cardiovascular Exam: REGULAR RHYTHM - GI/Abdominal Exam GI & Abdominal Exam: Soft, Tenderness (mild tenderness /lower abdomen), Normal Bowel Sounds. absent: Distended - Extremities Exam Extremities Exam: Full ROM - Back Exam Back Exam: NORMAL INSPECTION - Neurological Exam Neurological Exam: Awake, Oriented x3 - Psychiatric Exam Psychiatric exam: Normal Mood - Skin Skin Exam: Dry Assessment and Plan - Assessment and Plan (Free Text) Assessment: Patient is a 51 year old male with a history of DM, HLD, BPH, bipolar disorder, arthritis, and glaucoma, who is admitted for suicidal ideation, alcohol abuse and cocaine abuse. Patient started having diarrhea two days ago, approximately 7 -8 BMs per day. Patient was seen by medical team. Has abdominal tenderness.CT abdomen shows mild colitis Plan: 1.Mild Colitis s/p diarrhea abdominal pain and tenderness No fever,no leukocytosis,no stool leukoctyes,Stool CD negative give oral Cipro and flagyl Liquid diet
[2017-09-19] MEDS: Rosuvastatin Calcium 2.5 mg Tab PO SCH (21:53)
[2017-09-20 06:22] VITALS: O2SAT 100
[2017-09-20 08:20] LABS: BASO % 0.8 % (0.0-2.0); EOS # 0.1 K/uL (0.0-0.7); EOS % 2.2 % (0.0-4.0); HEMOGLOBIN 13.5 g/dL (12.0-18.0); LYMPH # 1.5 K/uL (1.0-4.3); MEAN CELL VOLUME 87.8 fL (80.0-94.0); MEAN CORPUSCULAR HEMOGLOBIN 29.6 pg (27.0-31.0); MEAN CORPUSCULAR HGB CONC 33.8 g/dL (33.0-37.0); MEAN PLATELET VOLUME 8.6 fL (7.2-11.7); MONO # 0.5 K/uL (0.0-0.8); MONO % 11.3 % (0.0-10.0); NEUT % 48.7 % (50.0-75.0); NRBC % 0.1 % (0.0-2.0); RBC 4.54 Mil/uL (4.40-5.90); RED CELL DISTRIBUTION WIDTH 15.6 % (11.5-14.5); WHITE BLOOD COUNT 4.1 K/uL (4.8-10.8)
[2017-09-20] MEDS ORDERED: Iohexol 240 (50 ml) PO ONE ×2 (08:30→09:15)
[2017-09-20 08:31] LABS: ALB/GLOB RATIO 1.4 (1.0-2.1); ALBUMIN 3.9 g/dL (3.5-5.0); ALT/SGPT 32 U/L (21-72); AST/SGOT 20 U/L (17-59); BLOOD UREA NITROGEN 12 mg/dL (9-20); CALCIUM 8.8 mg/dl (8.6-10.4); GFR AFRICAN-AMERICAN > 60; GFR NON-AFRICAN AMERICAN > 60
--- NOTE | 2017-09-20 09:20 | CP.PCM.PN ---
<Sunshine Lui - Last Filed: 09/20/17 11:24> Subjective - Date & Time of Evaluation Date of Evaluation: 09/20/17 Time of Evaluation: 09:17 - Subjective Subjective: Medicine progress note for Dr. Donald Patient was seen and examined at bedside in no acute. Patient reports he is feeling a little better, but still has abdominal pain. He says his BMs are more formed, less watery and less frequent. Patient denies chest pain, abdominal pain , nausea, vomiting, fevers, headaches, dyspnea, leg pain/swelling, and dysuria. Objective - Vital Signs/Intake and Output Vital Signs (last 24 hours): Temp Pulse Resp BP Pulse Ox 97.7 F 72 20 108/70 100 09/20/17 06:00 09/20/17 06:00 09/20/17 06:00 09/20/17 06:00 09/20/17 06:00 - Medications Medications: Current Medications Chlordiazepoxide (Librium) 25 mg PO Q4H PRN PRN Reason: Alcohol Withdrawal Last Admin: 09/19/17 12:33 Dose: 25 mg Ciprofloxacin (Cipro) 500 mg PO BID [facility] PRN Reason: Protocol Stop: 09/29/17 08:00 Clonidine HCl (Catapres) 0.1 mg PO Q4H PRN PRN Reason: Symptoms of alcohol withdrawl Folic Acid (Folic Acid) 1 mg PO DAILY [facility] Last Admin: 09/19/17 12:34 Dose: 1 mg Gabapentin (Neurontin) 300 mg PO BID [facility] Last Admin: 09/19/17 17:38 Dose: 300 mg Glipizide (Glucotrol) 10 mg PO BID [facility] Last Admin: 09/19/17 17:39 Dose: 10 mg Ibuprofen (Motrin Tab) 600 mg PO TID PRN PRN Reason: Pain, moderate (4-7) Last Admin: 09/17/17 08:16 Dose: 600 mg [facility] Metronidazole (Flagyl) 500 mg PO TID [facility] PRN Reason: Protocol Stop: 09/29/17 08:00 Last Admin: 09/19/17 19:29 Dose: 500 mg Multivitamins (Hexavitamin) 1 tab PO DAILY [facility] Last Admin: 09/19/17 12:32 Dose: 1 tab Rosuvastatin Calcium (Crestor) 2.5 mg PO HS [facility] Last Admin: 09/19/17 21:53 Dose: 2.5 mg Sitagliptin Phosphate (Januvia) 50 mg PO DAILY [facility] Last Admin: 09/19/17 12:36 Dose: 50 mg Thiamine HCl (Vitamin B1 Tab) 100 mg PO DAILY [facility] Last Admin: 09/19/17 12:34 Dose: 100 mg Trazodone HCl (Desyrel) 100 mg PO HS PRN PRN Reason: Insomnia Last Admin: 09/19/17 21:53 Dose: 100 mg Ziprasidone (Geodon Cap) 40 mg PO QPM [facility] Last Admin: 09/19/17 17:39 Dose: 40 mg Ziprasidone (Geodon Cap) 40 mg PO DAILY [facility] Last Admin: 09/19/17 12:35 Dose: 40 mg - Labs Labs: 09/20/17 08:13 09/20/17 08:13 - Additional Findings Additional findings: - Constitutional Appears: No Acute Distress - Head Exam Head Exam: ATRAUMATIC, NORMAL INSPECTION - Eye Exam Eye Exam: EOMI, Normal appearance, PERRL - ENT Exam ENT Exam: Mucous Membranes Moist - Neck Exam Neck exam: Positive for: Full Rom - Respiratory Exam Respiratory Exam: Clear to Auscultation Bilateral, NORMAL BREATHING PATTERN. absent: Rales, Rhonchi, Wheezes, Respiratory Distress - Cardiovascular Exam Cardiovascular Exam: REGULAR RHYTHM, +S1, +S2 - GI/Abdominal Exam GI & Abdominal Exam: Normal Bowel Sounds, Soft, Tenderness (periumbilical and LLQ). absent: Distended, Firm, Mass - Extremities Exam Extremities exam: Positive for: normal inspection, pedal pulses present. Negative for: pedal edema, tenderness - Back Exam Back exam: NORMAL INSPECTION. absent: CVA tenderness (L), CVA tenderness (R) - Neurological Exam Neurological exam: Alert, Oriented x3 - Psychiatric Exam Psychiatric exam: Normal Affect, Normal Mood - Skin Skin Exam: Dry, Intact, Normal Color, Warm Assessment and Plan (1) Diarrhea Status: Acute - Assessment and Plan (Free Text) Plan: (1) Colitis Assessment and Plan: Diarrhea is improving, less frequent Afebrile, no leukocytosis Stool culture: f/u Stool occult: negative Ova and parasite: negative Fecal leukocytes: negative C. Diff: negative Abdomen/pelvic CT: extensive colonic diverticulosis; diffuse mural thickening in colon with mild pericolonic inflammatory changes- may reflect colitis Encouraged increased hydrate/PO intake of water. [place] diet Continue Cipro 500mg PO BID and Flagyl 500mg PO TID <Davi Donald H - Last Filed: 09/20/17 17:05> Objective - Vital Signs/Intake and Output Vital Signs (last 24 hours): Temp Pulse Resp BP Pulse Ox 97.7 F 72 20 108/70 100 09/20/17 06:00 09/20/17 06:00 09/20/17 06:00 09/20/17 06:00 09/20/17 06:00 - Medications Medications: Current Medications Chlordiazepoxide (Librium) 25 mg PO Q4H PRN PRN Reason: Alcohol Withdrawal Last Admin: 09/19/17 12:33 Dose: 25 mg Ciprofloxacin (Cipro) 500 mg PO BID [facility] PRN Reason: Protocol Stop: 09/29/17 08:00 Clonidine HCl (Catapres) 0.1 mg PO Q4H PRN PRN Reason: Symptoms of alcohol withdrawl Folic Acid (Folic Acid) 1 mg PO DAILY [facility] Last Admin: 09/20/17 09:53 Dose: 1 mg Gabapentin (Neurontin) 300 mg PO BID [facility] Last Admin: 09/20/17 09:53 Dose: 300 mg Glipizide (Glucotrol) 10 mg PO BID [facility] Last Admin: 09/20/17 09:53 Dose: 10 mg Ibuprofen (Motrin Tab) 600 mg PO TID PRN PRN Reason: Pain, moderate (4-7) Last Admin: 09/17/17 08:16 Dose: 600 mg Metformin HCl (Glucophage) [facility] Metronidazole (Flagyl) 500 mg PO TID [facility] PRN Reason: Protocol Stop: 09/29/17 08:00 Last Admin: 09/20/17 13:50 Dose: 500 mg Multivitamins (Hexavitamin) 1 tab PO DAILY [facility] Last Admin: 09/20/17 09:53 Dose: 1 tab Rosuvastatin Calcium (Crestor) 2.5 mg PO HS [facility] Last Admin: 09/19/17 21:53 Dose: 2.5 mg Sitagliptin Phosphate (Januvia) 50 mg PO DAILY [facility] Last Admin: 09/20/17 09:53 Dose: 50 mg Thiamine HCl (Vitamin B1 Tab) 100 mg PO DAILY [facility] Last Admin: 09/20/17 09:53 Dose: 100 mg Trazodone HCl (Desyrel) 100 mg PO HS PRN PRN Reason: Insomnia Last Admin: 09/19/17 21:53 Dose: 100 mg Ziprasidone (Geodon Cap) 40 mg PO QPM [facility] Last Admin: 09/19/17 17:39 Dose: 40 mg Ziprasidone (Geodon Cap) 40 mg PO DAILY [facility] Last Admin: 09/20/17 09:53 Dose: 40 mg - Labs Labs: 09/20/17 08:13 09/20/17 08:13 Attending/Attestation - Attestation I have personally seen and examined this patient.: Yes I have fully participated in the care of the patient.: Yes I have reviewed all pertinent clinical information, including history, physical exam and plan: Yes Notes (Text): 09/20/17 17:03 Medical attending: Patient was seen and examined by me. Agree with the above note by the resident The patient was able to actively walk in the hallway Likely the pain and tenderness of abdomen related to the ETOH, COCAINE, as well as also the mild colitis that he has For now we continue with the PO CIPRO and PO Flagyl. thank you Davi Donald
[2017-09-20] MEDS: Multiple Vitamins Tab PO SCH (09:53)
--- NOTE | 2017-09-20 14:24 | PCM.PYCHPN ---
Psychiatric Progress Note - Psychiatric Progress Note Patient seen today, length of contact: 15 min Patient Chief Complaint: I m feeling anxious' Problems Identified/Issues Discussed: Patient seen and evaluated, chart reviewed and discussed with the nurse. As per the staff pt has vomiting and abdominal pain over the weekend. He was seen by the medical team and they ordered CT scan and antibiotics. Patient reports some improvement in his mood and appeared less delusional and less suspicious. Patient reports some improvement in his withdrawal symptoms. However, he is taking medication and denies any side effects Symptoms are improving but need more time to stabilize. Support and psychoeducation given Medication Change: No Medical Record Reviewed: Yes Mental Status Examination - Cognitive Function Orientation: Person, Place, Situation, Time Memory: Intact Attention: WNL Concentration: Poor Association: WNL Fund of Knowledge: Poor - Mood Mood: Depressed (Less than before) - Affect Affect: Constricted - Speech Speech: Soft - Formal Thought Process Formal Thought Process: Delusions, Loosening of associations - Suicidal Ideation Suicidal Ideation: No - Homicidal Ideation Homicidal Ideation: No Goal/Treatment Plan - Goal/Treatment Plan Need for Continued Stay: Remain at risks for inpatient hospitalization, Discharge may exacerbated symptoms, Severe functional impairment Progress Toward Problem(s) and Goals/Treatment Plan: Bipolar disorder depressed with psychotic features Alcohol use disorder severe Alcohol withdrawal Cocaine use disorder severe -CBT -Psychoeducation -Supportive therapy, group therapy, individual therapy -Neurontin 300 mg PO BID -Trazodone 100 mg by mouth daily at bedtime -Folic acid/thiamine/multivitamin -Librium taper -Use PA for abstinence -Geodon 40 mg PO BID DM -Continue prescribed medications -Monitor for signs and symptoms Hypercholesterolimia -Continue prescribed medications -Monitor for signs and symptoms Estimated Date of D/C: 09/20/17
--- NOTE | 2017-09-20 18:46 | RAD ---
PROCEDURE: CHEST RADIOGRAPH, 1 VIEW HISTORY: Medical Clearance for Rehab COMPARISON: None available. FINDINGS: LUNGS: Clear. PLEURA: No pneumothorax or pleural fluid seen. CARDIOVASCULAR: Normal. OSSEOUS STRUCTURES: No significant abnormalities. VISUALIZED UPPER ABDOMEN: Normal. OTHER FINDINGS: None. IMPRESSION: No active disease.
[2017-09-20] MEDS: Rosuvastatin Calcium 2.5 mg Tab PO SCH (22:01)
--- NOTE | 2017-09-21 07:07 | CP.PCM.PN ---
<Sunshine Lui - Last Filed: 09/21/17 11:14> Subjective - Date & Time of Evaluation Date of Evaluation: 09/21/17 Time of Evaluation: 07:05 - Subjective Subjective: Medicine progress note for Dr. Donald Patient was seen and examined at bedside in no acute distress. Patient reports his stools are more formed and less frequent and his abdominal pain is improving , but still present. Patient denies chest pain, abdominal pain, dyspnea, nausea , vomiting, fevers, headaches, dysuria, constipation, and diarrhea. Objective - Vital Signs/Intake and Output Vital Signs (last 24 hours): Temp Pulse Resp BP Pulse Ox 98.6 F 83 20 112/69 100 09/21/17 06:48 09/21/17 06:48 09/21/17 06:48 09/21/17 06:48 09/21/17 06:48 - Medications Medications: Current Medications Chlordiazepoxide (Librium) 25 mg PO Q4H PRN PRN Reason: Alcohol Withdrawal Last Admin: 09/19/17 12:33 Dose: 25 mg Ciprofloxacin (Cipro) 500 mg PO BID [facility] PRN Reason: Protocol Stop: 09/29/17 08:00 Last Admin: 09/20/17 19:01 Dose: 500 mg Clonidine HCl (Catapres) 0.1 mg PO Q4H PRN PRN Reason: Symptoms of alcohol withdrawl Folic Acid (Folic Acid) 1 mg PO DAILY [facility] Last Admin: 09/20/17 09:53 Dose: 1 mg Gabapentin (Neurontin) 300 mg PO BID [facility] Last Admin: 09/20/17 18:46 Dose: 300 mg Glipizide (Glucotrol) 10 mg PO BID [facility] Last Admin: 09/20/17 18:46 Dose: 10 mg Ibuprofen (Motrin Tab) 600 mg PO TID PRN PRN Reason: Pain, moderate (4-7) Last Admin: 09/17/17 08:16 Dose: 600 mg [facility] Metronidazole (Flagyl) 500 mg PO TID [facility] PRN Reason: Protocol Stop: 09/29/17 08:00 Last Admin: 09/20/17 18:46 Dose: 500 mg Multivitamins (Hexavitamin) 1 tab PO DAILY [facility] Last Admin: 09/20/17 09:53 Dose: 1 tab Rosuvastatin Calcium (Crestor) 2.5 mg PO HS [facility] Last Admin: 09/20/17 22:01 Dose: 2.5 mg Sitagliptin Phosphate (Januvia) 50 mg PO DAILY [facility] Last Admin: 09/20/17 09:53 Dose: 50 mg Thiamine HCl (Vitamin B1 Tab) 100 mg PO DAILY [facility] Last Admin: 09/20/17 09:53 Dose: 100 mg Trazodone HCl (Desyrel) 100 mg PO HS PRN PRN Reason: Insomnia Last Admin: 09/20/17 22:01 Dose: 100 mg Ziprasidone (Geodon Cap) 40 mg PO QPM [facility] Last Admin: 09/20/17 18:46 Dose: 40 mg Ziprasidone (Geodon Cap) 40 mg PO DAILY [facility] Last Admin: 09/20/17 09:53 Dose: 40 mg - Labs Labs: 09/20/17 08:13 09/20/17 08:13 - Additional Findings Additional findings: - Constitutional Appears: No Acute Distress - Head Exam Head Exam: ATRAUMATIC, NORMAL INSPECTION - Eye Exam Eye Exam: EOMI, Normal appearance, PERRL - ENT Exam ENT Exam: Mucous Membranes Moist - Neck Exam Neck exam: Positive for: Full Rom - Respiratory Exam Respiratory Exam: Clear to Auscultation Bilateral, NORMAL BREATHING PATTERN. absent: Rales, Rhonchi, Wheezes, Respiratory Distress - Cardiovascular Exam Cardiovascular Exam: REGULAR RHYTHM, +S1, +S2 - GI/Abdominal Exam GI & Abdominal Exam: Normal Bowel Sounds, Soft, Tenderness (periumbilical and LLQ). absent: Distended, Firm, Mass - Extremities Exam Extremities exam: Positive for: normal inspection, pedal pulses present. Negative for: pedal edema, tenderness - Back Exam Back exam: NORMAL INSPECTION. absent: CVA tenderness (L), CVA tenderness (R) - Neurological Exam Neurological exam: Alert, Oriented x3 - Psychiatric Exam Psychiatric exam: Normal Affect, Normal Mood - Skin Skin Exam: Dry, Intact, Normal Color, Warm Assessment and Plan (1) Diarrhea Status: Acute - Assessment and Plan (Free Text) Plan: (1) Colitis Assessment and Plan: Diarrhea is improving, less frequent Afebrile, no leukocytosis Stool culture: negative Stool occult: negative Ova and parasite: negative Fecal leukocytes: negative C. Diff: negative Abdomen/pelvic CT: extensive colonic diverticulosis; diffuse mural thickening in colon with mild pericolonic inflammatory changes- may reflect colitis Encouraged increased hydrate/PO intake of water. Steele diet Gave one dose of prednisone 20mg PO Continue Cipro 500mg PO BID and Flagyl 500mg PO TID <Davi Donald H - Last Filed: 09/21/17 13:23> Objective - Vital Signs/Intake and Output Vital Signs (last 24 hours): Temp Pulse Resp BP Pulse Ox 98.6 F 83 20 112/69 100 09/21/17 06:48 09/21/17 06:48 09/21/17 06:48 09/21/17 06:48 09/21/17 06:48 - Medications Medications: Current Medications Ciprofloxacin (Cipro) 500 mg PO BID [facility] PRN Reason: Protocol Stop: 09/29/17 08:00 Last Admin: 09/21/17 10:01 Dose: 500 mg Clonidine HCl (Catapres) 0.1 mg PO Q4H PRN PRN Reason: Symptoms of alcohol withdrawl Folic Acid (Folic Acid) 1 mg PO DAILY [facility] Last Admin: 09/21/17 10:02 Dose: 1 mg Gabapentin (Neurontin) 300 mg PO BID [facility] Last Admin: 09/21/17 10:01 Dose: 300 mg Glipizide (Glucotrol) 10 mg PO BID [facility] Last Admin: 09/21/17 10:01 Dose: 10 mg Ibuprofen (Motrin Tab) 600 mg PO TID PRN PRN Reason: Pain, moderate (4-7) Last Admin: 09/17/17 08:16 Dose: 600 mg Metformin [facility] Metronidazole (Flagyl) 500 mg PO TID [facility] PRN Reason: Protocol Stop: 09/29/17 08:00 Last Admin: 09/21/17 13:04 Dose: 500 mg Multivitamins (Hexavitamin) 1 tab PO DAILY [facility] Last Admin: 09/21/17 10:02 Dose: 1 tab Prednisone (Prednisone Tab) 20 mg PO ONCE ONE Stop: 09/22/17 11:15 Rosuvastatin Calcium (Crestor) 2.[address] [facility] Last Admin: 09/20/17 22:01 Dose: 2.5 mg Sitagliptin Phosphate (Januvia) 50 mg PO DAILY [facility] Last Admin: 09/21/17 10:01 Dose: 50 mg Thiamine HCl (Vitamin B1 Tab) 100 mg PO DAILY [facility] Last Admin: 09/21/17 10:01 Dose: 100 mg Trazodone HCl (Desyrel) 100 mg PO HS PRN PRN Reason: Insomnia Last Admin: 09/20/17 22:01 Dose: 100 mg Ziprasidone (Geodon Cap) 40 mg PO QPM [facility] Last Admin: 09/20/17 18:46 Dose: 40 mg Ziprasidone (Geodon Cap) 40 mg PO DAILY [facility] Last Admin: 09/21/17 10:01 Dose: 40 mg - Labs Labs: 09/21/17 10:57 09/21/17 10:57 Attending/Attestation - Attestation I have personally seen and examined this patient.: Yes I have fully participated in the care of the patient.: Yes I have reviewed all pertinent clinical information, including history, physical exam and plan: Yes Notes (Text): 09/21/17 13:23 Medical consult: Patient was seen and examined by me, agrees the above note by the biomedical engineering internship. Reviewed the above note by the resident and agree with the above. The patient was seen at [facility] He was in his room. He was not near any acute distress he said that in the morning he was doing okay until he breakfast when he promptly developed abdominal pain he reported that overall the pain was not as severe as yesterday however were to change the patient's diet back to a full liquid diet and will keep him more or less at bowel rest. The meantime he continues to receive the by mouth Cipro and by mouth Flagyl after the CAT scan suggested that there might be a very early diverticulitis Also as mentioned previously the patient is at [facility] for alcohol as well as cocaine detox. These can also contribute to the patient having abdominal pain as well
[2017-09-21] MEDS: Multiple Vitamins Tab PO SCH (10:02)
[2017-09-21 11:04] LABS: BASO % 0.6 % (0.0-2.0); EOS # 0.1 K/uL (0.0-0.7); EOS % 1.7 % (0.0-4.0); HEMOGLOBIN 12.6 g/dL (12.0-18.0); LYMPH # 0.9 K/uL (1.0-4.3); LYMPH % 20.2 % (20.0-40.0); MEAN CELL VOLUME 87.8 fL (80.0-94.0); MEAN CORPUSCULAR HEMOGLOBIN 29.5 pg (27.0-31.0); MEAN CORPUSCULAR HGB CONC 33.6 g/dL (33.0-37.0); MEAN PLATELET VOLUME 8.8 fL (7.2-11.7); MONO # 0.5 K/uL (0.0-0.8); NEUT # 2.8 K/uL (1.8-7.0); NEUT % 66.5 % (50.0-75.0); RBC 4.28 Mil/uL (4.40-5.90); RED CELL DISTRIBUTION WIDTH 15.3 % (11.5-14.5); WHITE BLOOD COUNT 4.2 K/uL (4.8-10.8)
[2017-09-21 11:24] LABS: ALB/GLOB RATIO 1.5 (1.0-2.1); ALBUMIN 4.1 g/dL (3.5-5.0); ALT/SGPT 30 U/L (21-72); AST/SGOT 29 U/L (17-59); BLOOD UREA NITROGEN 14 mg/dL (9-20); CALCIUM 8.7 mg/dl (8.6-10.4); GFR AFRICAN-AMERICAN > 60; GFR NON-AFRICAN AMERICAN > 60
--- NOTE | 2017-09-21 19:34 | CARD ---
APPROVED REPORT EKG Measurement Heart [id number] <Conclusion> Normal sinus rhythm Normal ECG
[2017-09-21] MEDS: Rosuvastatin Calcium 2.5 mg Tab PO SCH (22:01)
--- NOTE | 2017-09-22 06:54 | CP.PCM.PN ---
<Sunshine Lui - Last Filed: 09/22/17 09:53> Subjective - Date & Time of Evaluation Date of Evaluation: 09/22/17 Time of Evaluation: 06:54 - Subjective Subjective: Medicine progress note for Dr. Donald Patient was seen and examined at bedside in no acute distress. Patient reports feeling better, no longer has diarrhea, and his abdominal pain has improved. Patient denies chest pain, abdominal pain, dyspnea, nausea, vomiting, fevers, headaches, dysuria, constipation, and diarrhea. Objective - Vital Signs/Intake and Output Vital Signs (last 24 hours): Temp Pulse Resp BP Pulse Ox 97.5 F L 86 18 142/91 H 100 09/22/17 06:09/22/17 06:26 09/22/17 06:09/22/17 06:09/21/17 06:48 - Medications Medications: Current Medications Ciprofloxacin (Cipro) 500 mg PO BID [facility] PRN Reason: Protocol Stop: 09/29/17 08:00 Last Admin: 09/21/17 17:09 Dose: 500 mg Clonidine HCl (Catapres) 0.1 mg PO Q4H PRN PRN Reason: Symptoms of alcohol withdrawl Folic Acid (Folic Acid) 1 mg PO DAILY [facility] Last Admin: 09/21/17 10:02 Dose: 1 mg Gabapentin (Neurontin) 300 mg PO BID [facility] Last Admin: 09/21/17 17:09 Dose: 300 mg Glipizide (Glucotrol) 10 mg PO BID [facility] Last Admin: 09/21/17 17:09 Dose: 10 mg Ibuprofen (Motrin Tab) 600 mg PO TID PRN PRN Reason: Pain, moderate (4-7) Last Admin: 09/17/17 08:16 Dose: 600 mg [facility] Metronidazole (Flagyl) 500 mg PO TID [facility] PRN Reason: Protocol Stop: 09/29/17 08:00 Last Admin: 09/21/17 17:09 Dose: 500 mg Multivitamins (Hexavitamin) 1 tab PO DAILY [facility] Last Admin: 09/21/17 10:02 Dose: 1 tab Prednisone (Prednisone Tab) 20 mg PO ONCE ONE Stop: 09/22/17 11:15 Rosuvastatin Calcium (Crestor) 2.5 mg PO [facility] Last Admin: 09/21/17 22:01 Dose: 2.5 mg Sitagliptin Phosphate (Januvia) 50 mg PO DAILY [facility] Last Admin: 09/21/17 10:01 Dose: 50 mg Thiamine HCl (Vitamin B1 Tab) 100 mg PO DAILY [facility] Last Admin: 09/21/17 10:01 Dose: 100 mg Trazodone HCl (Desyrel) 100 mg PO HS PRN PRN Reason: Insomnia Last Admin: 09/21/17 22:01 Dose: 100 mg Ziprasidone (Geodon Cap) 40 mg PO QPM [facility] Last Admin: 09/21/17 17:09 Dose: 40 mg Ziprasidone (Geodon Cap) 40 mg PO DAILY [facility] Last Admin: 09/21/17 10:01 Dose: 40 mg - Labs Labs: 09/21/17 10:57 09/21/17 10:57 - Additional Findings Additional findings: - Constitutional Appears: No Acute Distress - Head Exam Head Exam: ATRAUMATIC, NORMAL INSPECTION - Eye Exam Eye Exam: EOMI, Normal appearance, PERRL - ENT Exam ENT Exam: Mucous Membranes Moist - Neck Exam Neck exam: Positive for: Full Rom - Respiratory Exam Respiratory Exam: Clear to Auscultation Bilateral, NORMAL BREATHING PATTERN. absent: Rales, Rhonchi, Wheezes, Respiratory Distress - Cardiovascular Exam Cardiovascular Exam: REGULAR RHYTHM, +S1, +S2 - GI/Abdominal Exam GI & Abdominal Exam: Normal Bowel Sounds, Soft. absent: Distended, Firm, Mass, Tenderness - Extremities Exam Extremities exam: Positive for: normal inspection, pedal pulses present. Negative for: pedal edema, tenderness - Back Exam Back exam: NORMAL INSPECTION. absent: CVA tenderness (L), CVA tenderness (R) - Neurological Exam Neurological exam: Alert, Oriented x3 - Psychiatric Exam Psychiatric exam: Normal Affect, Normal Mood - Skin Skin Exam: Dry, Intact, Normal Color, Warm Assessment and Plan (1) Diarrhea Status: Acute - Assessment and Plan (Free Text) Plan: (1) Colitis Assessment and Plan: Diarrhea is improving, less frequent Afebrile, no leukocytosis Stool culture: negative Stool occult: negative Ova and parasite: negative Fecal leukocytes: negative C. Diff: negative Abdomen/pelvic CT: extensive colonic diverticulosis; diffuse mural thickening in colon with mild pericolonic inflammatory changes- may reflect colitis Encouraged increased hydrate/PO intake of water. Advanced to regular diet Gave one dose of prednisone 20mg PO Continue Cipro 500mg PO BID and Flagyl 500mg PO TID Patients symptoms have resolved. Advanced diet. Will send patient home with Cipro 250mg PO BID for 3 days and Flagyl 500mg PO TID for 3 days. Please reconsult as needed. <Davi Donald H - Last Filed: 09/22/17 12:44> Objective - Vital Signs/Intake and Output Vital Signs (last 24 hours): Temp Pulse Resp BP Pulse Ox 97.5 F L 86 18 142/91 H 100 09/22/17 06:26 09/22/17 06:26 09/22/17 06:26 09/22/17 06:26 09/21/17 06:48 - Medications Medications: Current Medications Ciprofloxacin (Cipro) 500 mg PO BID [facility] PRN Reason: Protocol Stop: 09/29/17 08:00 Last Admin: 09/22/17 09:16 Dose: 500 mg Clonidine HCl (Catapres) 0.1 mg PO Q4H PRN PRN Reason: Symptoms of alcohol withdrawl Folic Acid (Folic Acid) 1 mg PO DAILY [facility] Last Admin: 09/22/17 09:17 Dose: 1 mg Gabapentin (Neurontin) 300 mg PO BID [facility] Last Admin: 09/22/17 09:17 Dose: 300 mg Glipizide (Glucotrol) 10 mg PO BID [facility] Last Admin: 09/22/17 09:17 Dose: 10 mg Ibuprofen (Motrin Tab) 600 mg PO TID PRN PRN Reason: Pain, moderate (4-7) Last Admin: 09/17/17 08:16 Dose: 600 mg [facility] Last Admin: 09/22/17 11:43 Dose: 1,000 mg Metronidazole (Flagyl) 500 mg PO TID [facility] PRN Reason: Protocol Stop: 09/29/17 08:00 Last Admin: 09/22/17 09:17 Dose: 500 mg Multivitamins (Hexavitamin) 1 tab PO DAILY [facility] Last Admin: 09/22/17 09:20 Dose: 1 tab Rosuvastatin Calcium (Crestor) 2.5 mg PO HS [facility] Last Admin: 09/21/17 22:01 Dose: 2.5 mg Sitagliptin Phosphate (Januvia) 50 mg PO DAILY [facility] Last Admin: 09/22/17 09:17 Dose: 50 mg Thiamine HCl (Vitamin B1 Tab) 100 mg PO DAILY [facility] Last Admin: 09/22/17 10:02 Dose: 100 mg Trazodone HCl (Desyrel) 100 mg PO HS PRN PRN Reason: Insomnia Last Admin: 09/21/17 22:01 Dose: 100 mg Ziprasidone (Geodon Cap) 40 mg PO QPM [facility] Last Admin: 09/21/17 17:09 Dose: 40 mg Ziprasidone (Geodon Cap) 40 mg PO DAILY [facility] Last Admin: 09/22/17 09:17 Dose: 40 mg - Labs Labs: 09/22/17 09:04 09/22/17 09:04 Attending/Attestation - Attestation I have personally seen and examined this patient.: Yes I have fully participated in the care of the patient.: Yes I have reviewed all pertinent clinical information, including history, physical exam and plan: Yes Notes (Text): 09/22/17 12:40 Medical attending: Patient was seen and examined by me. Agree with the above note by the resident. The patient looked very well today. He also reported feeling well. He tolerated his diet. He said the diarreha had resolved and also that his stomach was fine now. Continue with the PO Cipro and Flagyl for several more days. RX left in the chart thank you Davi Donald
[2017-09-22 09:15] LABS: BASO % 0.5 % (0.0-2.0); EOS # 0.1 K/uL (0.0-0.7); EOS % 1.6 % (0.0-4.0); HEMOGLOBIN 13.6 g/dL (12.0-18.0); LYMPH # 1.5 K/uL (1.0-4.3); LYMPH % 36.1 % (20.0-40.0); MEAN CELL VOLUME 87.9 fL (80.0-94.0); MEAN CORPUSCULAR HEMOGLOBIN 29.5 pg (27.0-31.0); MEAN CORPUSCULAR HGB CONC 33.5 g/dL (33.0-37.0); MEAN PLATELET VOLUME 8.9 fL (7.2-11.7); MONO # 0.4 K/uL (0.0-0.8); MONO % 10.3 % (0.0-10.0); NEUT # 2.1 K/uL (1.8-7.0); NEUT % 51.5 % (50.0-75.0); NRBC % 0.2 % (0.0-2.0); RBC 4.61 Mil/uL (4.40-5.90); RED CELL DISTRIBUTION WIDTH 15.3 % (11.5-14.5); WHITE BLOOD COUNT 4.1 K/uL (4.8-10.8)
[2017-09-22] MEDS: Multiple Vitamins Tab PO SCH (09:20)
[2017-09-22 09:25] LABS: ALB/GLOB RATIO 1.3 (1.0-2.1); ALBUMIN 4.5 g/dL (3.5-5.0); ALT/SGPT 29 U/L (21-72); AST/SGOT 26 U/L (17-59); BLOOD UREA NITROGEN 14 mg/dL (9-20); CALCIUM 9.1 mg/dl (8.6-10.4); GFR AFRICAN-AMERICAN > 60; GFR NON-AFRICAN AMERICAN > 60
--- NOTE | 2017-09-22 10:39 | PCM.BM ---
<Aline Saldana - Last Filed: 09/22/17 10:39> Treatment Plan Problems - Problems identified on initial assessmt Depression Date Initiated: 09/14/17 Time Initiated: 02:00 Assessment reference: NA Status: Active Treatment assets and liabiliti Patient Assests: adapts well, cooperative, ADL independent, negotiates basic needs, cognitively intact Patient Liabilities: substance abuse (Cocaine, ETOH) - Milieu Protocol Maintain good personal hygiene: daily Encourage regular showers, daily Remind patient to perform daily oral care, every shift Assist patient to perform ADL's Conduct patient checks and document Observation sheet: Q15 minutes Maintain personal safety: every shift Educate patient to report safety concerns to staff, every shift Monitor environment for contraband/sharps Medication safety: Monitor for expected outcome, potential side effects: every shift, Assess barriers to learning: every shift, Assess readiness for medication education: every shift Milieu Narrative: Bipolar disorder depressed with psychotic features Alcohol use disorder severe Alcohol withdrawal Cocaine use disorder severe -CBT -Psychoeducation -Supportive therapy, group therapy, individual therapy -Neurontin 300 mg PO BID -Trazodone 100 mg by mouth daily at bedtime -Folic acid/thiamine/multivitamin -Librium taper -Use MS for abstinence -Geodon 40 mg PO BID DM -Continue prescribed medications -Monitor for signs and symptoms Hypercholesterolimia -Continue prescribed medications -Monitor for signs and symptoms Family Contact Family involvement: Patient does not wish Family/SO involvement Family contact: Patient declines to allow family contact at present - Goals for Treatment Patient goals for treatment: "I want to go to [facility] rehab." Discharge/Continuing Care - Education Needs Education Needs: Patient Medication, Patient Diagnosis/Disease Process, Patient Coping Skills - Discharge Discharge Criteria: Free of Suicidal thoughts, Normal sleep pattern, Ability to care for self, No longer exhibiting s/s of withdrawal, Reduction of target symptoms Discharge to:: Substance Abuse Rehab - Treatment Team Participation Patient/Family/SO Statement: Bipolar disorder depressed with psychotic features Alcohol use disorder severe Alcohol withdrawal Cocaine use disorder severe -CBT -Psychoeducation -Supportive therapy, group therapy, individual therapy -Neurontin 300 mg PO BID -Trazodone 100 mg by mouth daily at bedtime -Folic acid/thiamine/multivitamin -Librium taper -Use MS for abstinence -Geodon 40 mg PO BID DM -Continue prescribed medications -Monitor for signs and symptoms Hypercholesterolimia -Continue prescribed medications -Monitor for signs and symptoms Discussed with Family/SO: No Was Patient/Family/SO present at Treatment Team Meeting: Yes Treatment Plan Review - Problem Depression Time Initiated: 02:00 - Discharge / Continuing Care Discharge to:: Substance Abuse Rehab Behavioral Health Services: Other Health Needs: Medications/Rx, Alcohol/Drug treatment <Erica Zhang - Last Filed: 09/22/17 13:49> - Diagnosis (1) Bipolar 1 disorder Status: Acute Interventions: 09/22/17 13:49 * Assess/adjust medications daily and /or as needed * See patient on an individual basis 7x/week to assess level of manic behaviors and stability * Discuss risks, benefits, side effects and alternatives of medications * (2) Alcohol abuse Status: Acute Interventions: 09/22/17 13:49 * Assess 7x/week regarding severity of withdrawal * Educate regarding risks, benefits, side effects and alternatives of medications * Use Motivational Interviewing for abstinence * Use CBT for relapse prevention * Medication management for withdrawal symptoms * Encourage medication assisted treatment * <Christie Delacruz - Last Filed: 09/23/17 14:01> Treatment Plan Review - Problem Depression Date Initiated: 09/23/17 Progress toward outcomes: improved
--- NOTE | 2017-09-22 13:48 | PCM.PYCHPN ---
Psychiatric Progress Note - Psychiatric Progress Note Patient seen today, length of contact: 15 min Patient Chief Complaint: I m feeling anxious' Problems Identified/Issues Discussed: Patient seen and evaluated, chart reviewed and discussed with the nurse. Pt reports some improvement in the abdominal pain . Patient reports some improvement in his mood. Patient reports some improvement in his withdrawal symptoms. However, he is taking medication and denies any side effects Symptoms are improving but need more time to stabilize. Support and psychoeducation given Medication Change: No Medical Record Reviewed: Yes Mental Status Examination - Cognitive Function Orientation: Person, Place, Situation, Time Memory: Intact Attention: WNL Concentration: Poor Association: WNL Fund of Knowledge: Poor - Mood Mood: Depressed (Less than before) - Affect Affect: Constricted - Speech Speech: Soft - Formal Thought Process Formal Thought Process: Delusions, Loosening of associations - Suicidal Ideation Suicidal Ideation: No - Homicidal Ideation Homicidal Ideation: No Goal/Treatment Plan - Goal/Treatment Plan Need for Continued Stay: Remain at risks for inpatient hospitalization, Discharge may exacerbated symptoms, Severe functional impairment Progress Toward Problem(s) and Goals/Treatment Plan: Bipolar disorder depressed with psychotic features Alcohol use disorder severe Alcohol withdrawal Cocaine use disorder severe -CBT -Psychoeducation -Supportive therapy, group therapy, individual therapy -Neurontin 300 mg PO BID -Trazodone 100 mg by mouth daily at bedtime -Folic acid/thiamine/multivitamin -Librium taper -Use CT for abstinence -Geodon 40 mg PO BID DM -Continue prescribed medications -Monitor for signs and symptoms Hypercholesterolimia -Continue prescribed medications -Monitor for signs and symptoms Estimated Date of D/C: 09/20/17
[2017-09-22] MEDS: Rosuvastatin Calcium 2.5 mg Tab PO SCH (21:53)
--- NOTE | 2017-09-23 07:33 | PCM.PYCHPN ---
Psychiatric Progress Note - Psychiatric Progress Note Patient seen today, length of contact: 15 min Patient Chief Complaint: I m feeling anxious' Problems Identified/Issues Discussed: Patient seen and evaluated, chart reviewed and discussed with the nurse. He appeared less delusional and less suspicious. Patient reports some improvement in his mood and withdrawal symptoms. However, he is taking medication and denies any side effects Symptoms are improving but need more time to stabilize. Support and psychoeducation given Medication Change: No Medical Record Reviewed: Yes Mental Status Examination - Cognitive Function Orientation: Person, Place, Situation, Time Memory: Intact Attention: WNL Concentration: Poor Association: WNL Fund of Knowledge: Poor - Mood Mood: Depressed (Less than before), Anxious - Affect Affect: Constricted - Speech Speech: Soft - Formal Thought Process Formal Thought Process: Delusions, Loosening of associations - Suicidal Ideation Suicidal Ideation: No - Homicidal Ideation Homicidal Ideation: No Goal/Treatment Plan - Goal/Treatment Plan Need for Continued Stay: Remain at risks for inpatient hospitalization, Discharge may exacerbated symptoms, Severe functional impairment Progress Toward Problem(s) and Goals/Treatment Plan: Bipolar disorder depressed with psychotic features Alcohol use disorder severe Alcohol withdrawal Cocaine use disorder severe -CBT -Psychoeducation -Supportive therapy, group therapy, individual therapy -Neurontin 300 mg PO BID -Trazodone 100 mg by mouth daily at bedtime -Folic acid/thiamine/multivitamin -Librium taper -Use [place] for abstinence -Geodon 40 mg PO BID DM -Continue prescribed medications -Monitor for signs and symptoms Hypercholesterolimia -Continue prescribed medications -Monitor for signs and symptoms Estimated Date of D/C: 09/20/17
[2017-09-23 08:49] LABS: BASO % 0.7 % (0.0-2.0); EOS # 0.1 K/uL (0.0-0.7); EOS % 1.1 % (0.0-4.0); HEMOGLOBIN 13.8 g/dL (12.0-18.0); LYMPH # 2.1 K/uL (1.0-4.3); MEAN CELL VOLUME 88.3 fL (80.0-94.0); MEAN PLATELET VOLUME 8.6 fL (7.2-11.7); MONO # 0.7 K/uL (0.0-0.8); MONO % 9.8 % (0.0-10.0); NEUT % 57.4 % (50.0-75.0); RBC 4.6 Mil/uL (4.40-5.90); RED CELL DISTRIBUTION WIDTH 15.4 % (11.5-14.5)
[2017-09-23 08:50] LABS: WHITE BLOOD COUNT 6.9 K/uL (4.8-10.8)
[2017-09-23 09:03] LABS: ALB/GLOB RATIO 1.4 (1.0-2.1); ALBUMIN 4.7 g/dL (3.5-5.0); ALT/SGPT 40 U/L (21-72); AST/SGOT 31 U/L (17-59); BLOOD UREA NITROGEN 15 mg/dL (9-20); CALCIUM 9.4 mg/dl (8.6-10.4); GFR AFRICAN-AMERICAN > 60; GFR NON-AFRICAN AMERICAN > 60
[2017-09-23] MEDS: Multiple Vitamins Tab PO SCH (09:46)
--- NOTE | 2017-09-23 12:03 | PCM.PYCHPN ---
Psychiatric Progress Note - Psychiatric Progress Note Patient seen today, length of contact: 15 min Patient Chief Complaint: I m feeling better' Problems Identified/Issues Discussed: Patient seen and evaluated, chart reviewed and discussed with the nurse. He appeared less delusional and less suspicious. Patient reports some improvement in his mood and withdrawal symptoms. However, he is taking medication and denies any side effects Symptoms are improving but need more time to stabilize. Support and psychoeducation given Medication Change: No Medical Record Reviewed: Yes Mental Status Examination - Cognitive Function Orientation: Person, Place, Situation, Time Memory: Intact Attention: WNL Concentration: Poor Association: WNL Fund of Knowledge: Poor - Mood Mood: Depressed (Less than before), Anxious - Affect Affect: Constricted - Speech Speech: Soft - Formal Thought Process Formal Thought Process: Delusions, Loosening of associations - Suicidal Ideation Suicidal Ideation: No - Homicidal Ideation Homicidal Ideation: No Goal/Treatment Plan - Goal/Treatment Plan Need for Continued Stay: Remain at risks for inpatient hospitalization, Discharge may exacerbated symptoms, Severe functional impairment Progress Toward Problem(s) and Goals/Treatment Plan: Bipolar disorder depressed with psychotic features Alcohol use disorder severe Alcohol withdrawal Cocaine use disorder severe -CBT -Psychoeducation -Supportive therapy, group therapy, individual therapy -Neurontin 300 mg PO BID -Trazodone 100 mg by mouth daily at bedtime -Folic acid/thiamine/multivitamin -Librium taper -Use SC for abstinence -Geodon 40 mg PO BID DM -Continue prescribed medications -Monitor for signs and symptoms Hypercholesterolimia -Continue prescribed medications -Monitor for signs and symptoms Estimated Date of D/C: 09/20/17
[2017-09-23] MEDS: Haloperidol Decanoate 100 mg/ml Inj IM ONE ×3 (17:00→17:11)
[2017-09-23] MEDS: Rosuvastatin Calcium 2.5 mg Tab PO SCH (22:21)
[2017-09-24 06:18] VITALS: RESP 20; TEMP 97.6
[2017-09-24 08:27] LABS: BASO % 0.5 % (0.0-2.0); EOS # 0.1 K/uL (0.0-0.7); EOS % 1.4 % (0.0-4.0); LYMPH # 1.6 K/uL (1.0-4.3); LYMPH % 31.4 % (20.0-40.0); MEAN CELL VOLUME 86.3 fL (80.0-94.0); MEAN CORPUSCULAR HEMOGLOBIN 29.8 pg (27.0-31.0); MEAN CORPUSCULAR HGB CONC 34.5 g/dL (33.0-37.0); MEAN PLATELET VOLUME 8.8 fL (7.2-11.7); MONO # 0.5 K/uL (0.0-0.8); MONO % 9.7 % (0.0-10.0); NEUT # 2.9 K/uL (1.8-7.0); NRBC % 0.1 % (0.0-2.0); RBC 4.37 Mil/uL (4.40-5.90); RED CELL DISTRIBUTION WIDTH 15.5 % (11.5-14.5); WHITE BLOOD COUNT 5.1 K/uL (4.8-10.8)
[2017-09-24 08:39] LABS: ALB/GLOB RATIO 1.5 (1.0-2.1); ALBUMIN 4.2 g/dL (3.5-5.0); ALT/SGPT 41 U/L (21-72); AST/SGOT 31 U/L (17-59); BLOOD UREA NITROGEN 13 mg/dL (9-20); GFR AFRICAN-AMERICAN > 60; GFR NON-AFRICAN AMERICAN > 60
[2017-09-24] MEDS: Multiple Vitamins Tab PO SCH (09:49)
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
[2017-09-24 11:16] VITALS: BP 126/67; PULSE 78
== END 2017-09-24 11:20 | disposition home or self-care (01) | DRG 885 ==
LOC: C.ER 23:24 → C.5E 09-14 00:49
PROVIDERS: ADMIT Psychiatry & Neurology Psychiatry; ATTEND Psychiatry & Neurology Psychiatry
DX: F31.5 Bipolar disorder, current episode depressed, severe, with psychotic features (principal); F10.230 Alcohol dependence with withdrawal, uncomplicated; F41.9 Anxiety disorder, unspecified; I10 Essential (primary) hypertension; E78.5 Hyperlipidemia, unspecified; E11.9 Type 2 diabetes mellitus without complications; K52.9 Noninfective gastroenteritis and colitis, unspecified; N40.0 Benign prostatic hyperplasia without lower urinary tract symptoms; F17.210 Nicotine dependence, cigarettes, uncomplicated; F10.220 Alcohol dependence with intoxication, uncomplicated; F14.10 Cocaine abuse, uncomplicated; Y90.6 Blood alcohol level of 120-199 mg/100 ml

== ENCOUNTER 2017-10-06 23:58 | Inpatient (IN) | payer MEDICARE, MEDICAID ==
[2017-10-06 23:58] VITALS: BMI 41.1
[2017-10-07 00:39] LABS: BASO % 0.8 % (0.0-2.0); EOS # 0.1 K/uL (0.0-0.7); EOS % 1.6 % (0.0-4.0); HEMOGLOBIN 13.3 g/dL (12.0-18.0); LYMPH # 2.3 K/uL (1.0-4.3); LYMPH % 38.2 % (20.0-40.0); MEAN CELL VOLUME 87.6 fL (80.0-94.0); MEAN CORPUSCULAR HGB CONC 34.3 g/dL (33.0-37.0); MONO # 0.4 K/uL (0.0-0.8); MONO % 6.3 % (0.0-10.0); NEUT # 3.2 K/uL (1.8-7.0); NEUT % 53.1 % (50.0-75.0); RBC 4.43 Mil/uL (4.40-5.90); RED CELL DISTRIBUTION WIDTH 15.4 % (11.5-14.5)
--- NOTE | 2017-10-07 00:47 | C.PDOC ---
History Of Present Illness [facility] after he verbalized suicidal and homicidal ideation. Patient is pleasant and cooperative, states he wants help. Denies physical complaints at this time. Time Seen by Provider: 10/07/17 00:47 Chief Complaint (Nursing): Psychiatric Evaluation History Per: Patient History/Exam Limitations: no limitations Onset/Duration Of Symptoms: Hrs Current Symptoms Are (Timing): Still Present Suicide/Self Injury Attempted (Context): None Severity: None Pain Scale Rating Of: 0 Associated Symptoms: Suicidal Thoughts, Other (Homicidal ideation) Involuntary Hold By: None Recent travel outside of the [place]: No Past Medical History Reviewed: Historical Data, Nursing Documentation, Vital Signs Vital Signs: Last Vital Signs Temp 98.9 F 10/07/17 02:47 Pulse 102 H 10/07/17 02:47 Resp 20 10/07/17 02:47 BP 90/60 L 10/07/17 02:47 Pulse Ox 96 10/07/17 02:47 - Medical History PMH: Bipolar Disorder, Depression, Diabetes, HTN (Pt did not report this to Undersigned.), Hypercholesterolemia - [facility] DETOXIFICATION SERVICES FOR SUBSTANCE ABUSE TREATMENT (06/01/17) GROUP AIRPORT SALES AGENT FOR SUBSTANCE ABUSE TREATMENT, PSYCHOEDUCATION (06/01/17) GROUP AIRPORT SALES AGENT FOR SUBSTANCE ABUSE, COGNITIVE BEHAVIORAL (06/01/17) GROUP PSYCHOTHERAPY (03/18/17) INDIV PSYCHOTHERAPY FOR SUBSTANCE ABUSE TREATMENT, SUPPORT (06/01/17) INDIV PSYCHOTHERAPY FOR SUBSTANCE ABUSE, COGNITIV BEHAVIORAL (06/01/17) INDIV PSYCHOTHERAPY FOR SUBSTANCE ABUSE, PSYCHOEDUCATION (06/01/17) INDIVIDUAL PSYCHOTHERAPY, SUPPORTIVE (03/18/17) MEDICATION MANAGEMENT (03/18/17) MEDS MGMT FOR SUBSTANCE ABUSE TREATMENT, OTH REPL MED (03/18/17) Family History: States: No Known Family Hx - Social History Hx Alcohol Use: Yes Hx Substance Use: Yes - Immunization History Hx Tetanus Toxoid Vaccination: No Hx Influenza Vaccination: No Hx Pneumococcal Vaccination: No Review Of Systems Constitutional: Negative for: Fever, Chills Cardiovascular: Negative for: Chest Pain, Palpitations Respiratory: Negative for: Cough, Shortness of Breath Gastrointestinal: Negative for: Nausea, Vomiting Psych: Positive for: Suicidal ideation, Other (Homicidal ideation) Physical Exam - Physical Exam Appears: Non-toxic Skin: Warm, Dry Head: Normacephalic Oral Mucosa: Moist Chest: Symmetrical, No Tenderness Cardiovascular: Rhythm Regular Respiratory: No Rales, No Rhonchi, No Wheezing Gastrointestinal/Abdominal: Soft, No Tenderness Neurological/Psych: Oriented x3 ED Course And Treatment - Laboratory Results Result Diagrams: 10/07/17 00:34 10/07/17 00:34 O2 Sat by Pulse Oximetry: 95 (room air) Pulse Ox Interpretation: Normal Progress Note: Blood work and urinalysis ordered. Crisis notified. Disposition Discussed With Dr.: Trevin Mendoza Comment: accepted the pt on his service and took over the care at 3:20 AM Doctor Will See Patient In The: Hospital Counseled Patient/Family Regarding: Studies Performed, Diagnosis - Disposition Disposition: HOSPITALIZED Disposition Time: 00:47 Condition: FAIR Forms: [facility] (Uzbek) - POA Present On Arrival: None - Clinical Impression Clinical Impression: Major depression - Scribe Statement The provider has reviewed the documentation as recorded by the Scribe Forest Man All medical record entries made by the Scribe were at my direction and personally dictated by me. I have reviewed the chart and agree that the record accurately reflects my personal performance of the history, physical exam, medical decision making, and the department course for this patient. I have also personally directed, reviewed, and agree with the discharge instructions and disposition. Decision To Admit - Pt Status Changed To: Hospital Disposition Of: Inpatient - Admit Certification Admit to Inpatient:: After my assessment, the patient will require hospitalization for at least two midnights. This is because of the severity of symptoms shown, intensity of services needed, and/or the medical risk in this patient being treated as an outpatient. - InPatient: Physician Admission Certification: I certify that this patient requires 2 or more midnights of care for the following reason:: After my assessment, the patient will require hospitalization for at least two midnights. This is because of the severity of symptoms shown, intensity of services needed, and/or the medical risk in this patient being treated as an outpatient. - . Bed Request Type: Psychiatry Admitting Physician: Trevin Mendoza Patient Diagnosis: Major depression
[2017-10-07 00:54] LABS: BARBITURATES, UR NEGATIVE (NEGATIVE); BENZODIAZEPINES, UR NEGATIVE (NEGATIVE); OPIATES, UR NEGATIVE (NEGATIVE); PHENCYCLIDINE, UR NEGATIVE (NEGATIVE)
[2017-10-07 00:55] LABS: ALB/GLOB RATIO 1.4 (1.0-2.1); ALBUMIN 4.7 g/dL (3.5-5.0); ALT/SGPT 23 U/L (21-72); AST/SGOT 20 U/L (17-59); BLOOD UREA NITROGEN 6 mg/dL (9-20); CALCIUM 9.1 mg/dl (8.6-10.4); GFR AFRICAN-AMERICAN > 60; GFR NON-AFRICAN AMERICAN > 60
[2017-10-07 01:03] LABS: SQUAMOUS EPITHIAL < 1 /hpf (0-5); URINE BILIRUBIN NEGATIVE (NEGATIVE); URINE BLOOD NEGATIVE (NEGATIVE); URINE CLARITY Clear (Clear); URINE COLOR Yellow (YELLOW); URINE GLUCOSE (UA) NORMAL (Normal); URINE LEUKOCYTE ESTERASE NEG Leu/uL (Negative); URINE PROTEIN NEGATIVE (NEGATIVE); URINE UROBILINOGEN NORMAL mg/dL (0.2-1.0)
--- NOTE | 2017-10-07 04:06 | PCM.BM ---
<Phill Mcbride - Last Filed: 10/07/17 04:03> Treatment Plan Problems - Problems identified on initial assessmt DEPRESSION Date Initiated: 10/07/17 Time Initiated: 03:50 Assessment reference: NA Status: Active SUBSTANCE ABUSE Date Initiated: 10/07/17 Time Initiated: 03:50 Assessment reference: NA Status: Active Treatment assets and liabiliti Patient Assests: adapts well, cooperative, self-reliant, ADL independent, negotiates basic needs Patient Liabilities: live alone, financial problems, poor support system, relationship conflicts, substance abuse, medical problems - Milieu Protocol Maintain good personal hygiene: daily Encourage regular showers, daily Remind patient to perform daily oral care, daily Assist patient to perform ADL's Maintain personal safety: every shift Educate patient to report safety concerns to staff, every shift Monitor environment for contraband/sharps Medication safety: Monitor for expected outcome, potential side effects: every shift, Assess barriers to learning: every shift, Assess readiness for medication education: every shift <Erica Zhang - Last Filed: 10/08/17 11:20> - Diagnosis (1) Bipolar 1 disorder Status: Acute Interventions: 10/08/17 11:20 * Assess/adjust medications daily and /or as needed * See patient on an individual basis 7x/week to assess level of manic behaviors and stability * Discuss risks, benefits, side effects and alternatives of medications * (2) Alcohol abuse Status: Acute Interventions: 10/08/17 11:20 * Assess 7x/week regarding severity of withdrawal * Educate regarding risks, benefits, side effects and alternatives of medications * Use Motivational Interviewing for abstinence * Use CBT for relapse prevention * Medication management for withdrawal symptoms * Encourage medication assisted treatment * <Aline Saldana - Last Filed: 10/08/17 11:38> Family Contact Family involvement: Famliy/SO not involved - Goals for Treatment Patient goals for treatment: "I [facility] to go to [facility] Discharge/Continuing Care - Education Needs Education Needs: Patient Medication, Patient Coping Skills, Patient Placement options, Patient Community resources - Discharge Discharge Criteria: Tolerates medication w/o severe side effects Discharge to:: Substance Abuse Rehab - Treatment Team Participation Discussed with Family/SO: No Was Patient/Family/SO present at Treatment Team Meeting: Yes
--- NOTE | 2017-10-07 09:53 | PCM.PSYCH ---
Initial Psychiatric Evaluation - Initial Psychiatric Evaluation Type of Admission: Voluntary Legal Status: Capacity Chief Complaint (in patient's own words): I felt like hurting someone.' Patient's Reaction to Hospitalization: Mr. Maloney is a 51 year old AAM self referred and brought in by [facility] and [facility] for actively verbalizing suicidal/homicidal ideations. Lithographing Machine Operator is familiar with this patient. Patient has history of multiple inpatient psychiatric hospitalizations. He was just discharged from [facility] a few weeks ago. Patient reports that he hears voices to hurt himself but does not have a plan and stated they were current. Patient then explained that he was homicidal ideations towards his ex with no plan. He has been feeling severely depressed since he from his family weeks ago. He has suicidal and homicidal thoughts which have lasted months. And he has bipolar disorder and depression which he said he has had most his life. He said that he once drank poison. He also has diabetes, high cholesterol and glaucoma. He has been to the psych unit 3-4 times before. He has stayed at [facility]. He does not have a job and he is disabled. Smoked 1/2 pack a day since 19 years old. He drinks about 5 cans of beer each week and he does $10- 20 worth of cocaine. PMH DM, hypercholesterolemia Current Medications: Active Medications Generic Name Dose Route Start Last Admin Trade Name Freq PRN Reason Stop Dose Admin Pneumococcal Polyvalent Vaccine 0.5 ml 10/08/17 10:00 Pneumovax 23 Vaccine IM 10/08/17 10:01 .ONCE ONE Past Psychiatric History - Past Psychiatric History Previous Treatment History: Inpatient Pertinent Medical Hx (Current Medical&Sleep Prob, Allergies): Allergies Allergy/AdvReac Type Severity Reaction Status Date / Time No Known Allergies Allergy Verified 10/07/17 00:08 Simvastatin 10 mg PO HS 03/18/17 Divalproex [Depakote DR] 250 mg PO BID #60 tcp 03/30/17 Escitalopram [Lexapro] 20 mg PO DAILY #30 tab 03/30/17 Mirtazapine [Remeron] 30 mg PO HS #30 tab 03/30/17 traZODone [Desyrel] 100 mg PO HS #60 tab 03/30/17 GlipiZIDE [Glucotrol] 10 mg PO BID #60 tab 06/07/17 SITagliptin [Januvia] 50 mg PO DAILY #30 tab 06/07/17 metFORMIN [glucOPHAGE] 1,000 mg PO BIDCC #60 tab 06/07/17 Gabapentin [Neurontin] 300 mg PO BID #60 cap 09/24/17 QUEtiapine [Seroquel] 100 mg PO HS #30 tab 09/24/17 Ziprasidone [Geodon Cap] 40 mg PO BID #60 cap 09/24/17 Review of Systems - Review of Systems All systems: reviewed and no additional remarkable complaints except - Psychiatric Psychiatric: Anxiety, Auditory Hallucinations, Homicidal Ideation, Irritability , Suicidal Ideation Mental Status Examination - Personal Presentation Personal Presentation: Looks stated age - Affect Affect: Constricted - Motor Activity Motor Activity: Calm - Reliability in Providing Information Reliability in Providing Information: Fair - Speech Speech: Organized - Mood Mood: Depressed, Anxious - Formal Thought Process Formal Thought Process: Hallucinations, Delusions, Paranoia - Hallucinations/Delusions Hallucinations: Auditory Delusions: Persecution - Obsessions/Compulsions Obsessions: No Compulsions: No - Cognitive Functions Orientation: Person, Place, Situation, Time Sensorium: Alert Attention/Concentration: Attentive Abstract Thinking: [place]ell Estimate of Intelligence: Below average Judgement: Imparied, as evidence by: Poor judgement, Imparied, as evidence by: Lack of insight into illness - Risk Risk: Suicidal, Homicidal, Withdrawal, Diminished functioning - Limitations Limitations: Living alone DSM 5 DX - DSM 5 DSM 5 Diagnosis: Bipolar disorder depressed severe with psychotic features Alcohol use disorder severe Alcohol withdrawal Cocaine use disorder severe - Recommended/Plan of Treatment Treatment Recommendations and Plan of Treatment: Bipolar disorder depressed severe with psychotic features Alcohol use disorder severe Alcohol withdrawal Cocaine use disorder severe DM hypercholesterolemia CBT Psychoeducation Supportive therapy, group therapy, individual therapy Librium taper Trazodone 100 mg by mouth daily at bedtime Hydroxyzine 25 mg by mouth every 6 hours when necessary Geodon 20 mg by mouth twice a day Zoloft 50 mg by mouth daily Gabapentin 100 mg po TID Glipizide Metformin Januvia Rosuvastatin
[2017-10-07] MEDS: Multiple Vitamins Tab PO SCH (11:47)
[2017-10-07] MEDS: Rosuvastatin Calcium 2.5 mg Tab PO SCH (21:59)
[2017-10-08] MEDS ORDERED: Pneumococcal 23-Valent Vaccine IM ONE (10:00)
[2017-10-08] MEDS: Multiple Vitamins Tab PO SCH (10:31)
--- NOTE | 2017-10-08 13:33 | PCM.PYCHPN ---
Psychiatric Progress Note - Psychiatric Progress Note Patient seen today, length of contact: 15 min Patient Chief Complaint: I felt like hurting someone.' Problems Identified/Issues Discussed: Mr. Maloney feels "so-so" today, which he said is the same as yesterday. He does not have hallucinations, but he has both suicidal and homicidal thoughts. He reports feeling depressed because he is from his family - which also causes him guilt. His sleep is bad, interest is decreased, concentration decreased, appetite decreased, and he feels like he is moving more slowly. Once he is discharged he wants to enter a rehab facility or prison and eventually get back to his family. Patient seen and evaluated, chart reviewed and discussed with the nurse. Patient reports irritability and agitation. He remained depressed, isolated and withdrawn. He still reports withdrawal symptoms including anxiety, headaches and sweating. H Patient still appears mildly disorganized and internally preoccupied. However he remained calm and cooperative. He is taking medication and denies any side effects. Symptoms are improving but he needs more time for stabilization. Supportive therapy and psychoeducation were given. Medication Change: Yes Medical Record Reviewed: Yes Mental Status Examination - Cognitive Function Orientation: Person, Place, Situation, Time Memory: Intact Attention: WNL Concentration: Poor Association: Loose Fund of Knowledge: Poor - Mood Mood: Depressed, Anxious - Affect Affect: Constricted - Speech Speech: Soft - Formal Thought Process Formal Thought Process: Hallucinations, Delusions, Paranoia - Suicidal Ideation Suicidal Ideation: No - Homicidal Ideation Homicidal Ideation: No Goal/Treatment Plan - Goal/Treatment Plan Need for Continued Stay: Severe depression anxiety, Severe functional impairment Progress Toward Problem(s) and Goals/Treatment Plan: Bipolar disorder depressed severe with psychotic features Alcohol use disorder severe Alcohol withdrawal Cocaine use disorder severe DM hypercholesterolemia CBT Psychoeducation Supportive therapy, group therapy, individual therapy Librium taper Trazodone 100 mg by mouth daily at bedtime Hydroxyzine 25 mg by mouth every 6 hours when necessary Geodon 20 mg by mouth twice a day Zoloft 50 mg by mouth daily Gabapentin 100 mg po TID Glipizide Metformin Januvia Rosuvastatin - Smoking Cessation Smoking Cessation Initiated: No
[2017-10-08] MEDS: Rosuvastatin Calcium 2.5 mg Tab PO SCH (21:38)
[2017-10-09] MEDS: Multiple Vitamins Tab PO SCH (10:04)
[2017-10-09] MEDS: Rosuvastatin Calcium 2.5 mg Tab PO SCH (21:52)
[2017-10-10] MEDS: Multiple Vitamins Tab PO SCH (09:53)
[2017-10-10] MEDS: Rosuvastatin Calcium 2.5 mg Tab PO SCH (22:14)
[2017-10-11] MEDS: Multiple Vitamins Tab PO SCH (10:33)
--- NOTE | 2017-10-11 15:04 | PCM.PYCHPN ---
Psychiatric Progress Note - Psychiatric Progress Note Patient seen today, length of contact: 15 min Patient Chief Complaint: I felt like hurting someone.' Problems Identified/Issues Discussed: Mr. Maloney said that he is feeling depressed. He reported having the most vivid dreams last night about his family, ex-, drugs, alcohol, women. He commented that they were constant and that anytime he went to the bathroom, the dreams would start back up again when he would lie back down. At one point he was searching his room for his wallet that was stuffed with [place] because in his dream he was rich. His body aches and he feels drowsy. He has suicidal/ homicidal thought/ideations. He said he might have hallucinations, but it was hard to tell with the vivid dreams. Since the last interview, He slept less, energy is decreased, has feelings of guilt, concentration is decreased, appetite is so-so, speech unchanged, feels movement is slower, thoughts vacillate between fast and slow. He plans to go to rehab and then [facility]. He says he is getting too old and his body isn't handling his lifestyle as well as it once did. He was more talkative and agreeable since last speaking. Medication Change: Yes Medical Record Reviewed: Yes Mental Status Examination - Cognitive Function Orientation: Person, Place, Situation, Time Memory: Intact Attention: WNL Concentration: Poor Association: Loose Fund of Knowledge: Poor - Mood Mood: Depressed, Anxious - Affect Affect: Constricted - Speech Speech: Soft - Formal Thought Process Formal Thought Process: Hallucinations, Delusions, Paranoia - Suicidal Ideation Suicidal Ideation: No - Homicidal Ideation Homicidal Ideation: No Goal/Treatment Plan - Goal/Treatment Plan Need for Continued Stay: Severe depression anxiety, Severe functional impairment Progress Toward Problem(s) and Goals/Treatment Plan: Bipolar disorder depressed severe with psychotic features Alcohol use disorder severe Alcohol withdrawal Cocaine use disorder severe DM hypercholesterolemia CBT Psychoeducation Supportive therapy, group therapy, individual therapy Librium taper Trazodone 100 mg by mouth daily at bedtime Hydroxyzine 25 mg by mouth every 6 hours when necessary Geodon 20 mg by mouth twice a day Zoloft 50 mg by mouth daily Gabapentin 100 mg po TID Glipizide Metformin Januvia Rosuvastatin
[2017-10-11] MEDS: Rosuvastatin Calcium 2.5 mg Tab PO SCH (22:43)
[2017-10-12] MEDS: Multiple Vitamins Tab PO SCH (10:31)
--- NOTE | 2017-10-12 14:29 | PCM.PYCHPN ---
Psychiatric Progress Note - Psychiatric Progress Note Patient seen today, length of contact: 15 min Patient Chief Complaint: I am okay. When can I be discharged. Problems Identified/Issues Discussed: Patient seen, chart reviewed, case discussed with the staff. Issues related to illness and treatment were discussed with the patient and staff. Reported compliant with treatment with no adverse affects. Tolerating treatment very well. Patient reported feeling better. Calm and cooperative with good eye contact. Aftercare discussed with the patient. Awake alert oriented 3, no delusions, no auditory or visual hallucination, nose suicidal ideation or homicidal ideation at time of evaluation. Medical Problems: Diabetes mellitus Hypercholesterolemia Diagnostic Results: Reviewed DSM 5 Symptoms Update: Improvement with treatment Medication Change: No Medical Record Reviewed: Yes Mental Status Examination - Cognitive Function Orientation: Person, Place, Situation, Time Memory: Intact Attention: WNL Concentration: WNL Association: WNL Fund of Knowledge: WN Decription of patient's judgement and insights: Fair - Mood Mood: Neutral - Affect Affect: Other (Appropriate) - Speech Speech: Soft - Formal Thought Process Formal Thought Process: No Impairment Psychotic Thoughts and Behaviors: None - Suicidal Ideation Suicidal Ideation: No - Homicidal Ideation Homicidal Ideation: No Goal/Treatment Plan - Goal/Treatment Plan Need for Continued Stay: Remain at risks for inpatient hospitalization, Discharge may exacerbated symptoms, Severe functional impairment Progress Toward Problem(s) and Goals/Treatment Plan: Improving. Patient education. Supportive therapy. Continue treatment as before. Patient will go to [facility]'s follow-up care after discharge from the hospital. Estimated Date of D/C: 10/13/17 - Smoking Cessation Smoking Cessation Initiated: No
[2017-10-12] MEDS: Rosuvastatin Calcium 2.5 mg Tab PO SCH (22:45)
[2017-10-13 06:48] VITALS: BP 145/71; PULSE 76; RESP 20; TEMP 98.1; O2SAT 96
[2017-10-13] MEDS: Multiple Vitamins Tab PO SCH (10:36)
--- NOTE | 2017-10-14 23:14 | PCM.PYCHDC ---
Mental Status Examination - Mental Status Examination Orientation: Person, Place, Situation, Time Memory: Intact Mood: Neutral Affect: Other (Appropriate) Speech: Appropriate Attention: WNL Concentration: WNL Association: WNL Fund of Knowledge: WNL Formal Thought Process: No Impairment Description of patient's judgement and insight: Fair Psychotic Thoughts and Behaviors: None Suicidal Ideation: No Current Homicidal Ideation?: No Discharge Summary - Discharge Note Reason for Hospitalization: Bipolar 1 disorder depressed severe with psychotic features. Alcohol use disorder severe. Cocaine use disorder severe. Laboratory Data: Abnormal Lab Results 10/13/17 07:38 POC Glucose (mg/dL) 78 Consultations:: List each consultation separately and include: 1. Reason for request. 2. Findings. 3. Follow-up Summary of Hospital Course include:: 1. Description of specific treatment plan utilized for patients during their course of treatmen. 2. Summarize the time- course for resolution of acute symptoms and/or regressed behaviors. 3. Describe issues identified and worked on during hospitalization. 4. Describe medication utilized. 5. Describe medical problems identified and treated. 6. Reassessment of suicide risk Summary of Hospital Course: Mr. Maloney is a 51 year old AAM self referred and brought in by [facility] for actively verbalizing suicidal/homicidal ideations. Financial Compliance Examiner is familiar with this patient. Patient has history of multiple inpatient psychiatric hospitalizations. He was just discharged from [facility] a few weeks ago. Patient reports that he hears voices to hurt himself but does not have a plan and stated they were current. Patient then explained that he was homicidal ideations towards his ex with no plan. He has been feeling severely depressed since he from his family weeks ago. He has suicidal and homicidal thoughts which have lasted months. And he has bipolar disorder and depression which he said he has had most his life. He said that he once drank poison. He also has diabetes, high cholesterol and glaucoma. He has been to the psych unit 3-4 times before. He has stayed at [facility]. He does not have a job and he is disabled. Smoked 1/2 pack a day since 19 years old. He drinks about 5 cans of beer each week and he does $10- 20 worth of cocaine. During his stay in the hospital patient was treated with Librium taper for alcohol withdrawal symptoms. He was also started on the medication for his medical conditions and other as needed medications. Patient was attending groups. With above treatment patient started feeling better. Today patient was stable had no withdrawal symptoms and was ready for discharge from the hospital. At the time of evaluation and discharge, patient was awake alert oriented 3, had no delusions, no auditory or visual hallucinations, no suicidal ideations or homicidal ideations. Patient was discharged in stable condition. - Final Diagnosis (DSM 5) Condition upon Discharge: FAIR Disposition: HOME/ ROUTINE Follow-up Treatment Plan: Patient will go to [facility]'s follow-up care after discharge from the hospital. Prescriptions/Medication Reconciliation: Sertraline [Zoloft] 50 mg PO DAILY #30 tab Ziprasidone [Geodon Cap] 40 mg PO BID #60 cap - Smoking Cessation Smoking Cessation Medication prescribed: No - Antipsychotic Medications Pt discharged on 2 or more routine antipsychotic medications: No
== END 2017-10-13 12:07 | disposition home or self-care (01) | DRG 885 ==
LOC: C.ER 23:58 → C.5E 10-07 03:19
PROC: GZHZZZZ Group Psychotherapy (ICD-10-PCS; principal; 2017-10-07)
PROC: GZ58ZZZ Individual Psychotherapy, Cognitive-Behavioral (ICD-10-PCS; 2017-10-07)
PROC: HZ2ZZZZ Detoxification Services for Substance Abuse Treatment (ICD-10-PCS; 2017-10-07)
PROC: HZ52ZZZ Individual Psychotherapy for Substance Abuse Treatment, Cognitive-Behavioral (ICD-10-PCS; 2017-10-07)
PROC: HZ59ZZZ Individual Psychotherapy for Substance Abuse Treatment, Supportive (ICD-10-PCS; 2017-10-07)
PROC: HZ56ZZZ Individual Psychotherapy for Substance Abuse Treatment, Psychoeducation (ICD-10-PCS; 2017-10-07)
PROC: HZ42ZZZ Group Counseling for Substance Abuse Treatment, Cognitive-Behavioral (ICD-10-PCS; 2017-10-07)
PROC: HZ46ZZZ Group Counseling for Substance Abuse Treatment, Psychoeducation (ICD-10-PCS; 2017-10-07)
PROC: GZ56ZZZ Individual Psychotherapy, Supportive (ICD-10-PCS; 2017-10-07)
DX: F31.5 Bipolar disorder, current episode depressed, severe, with psychotic features (principal); F10.230 Alcohol dependence with withdrawal, uncomplicated; F14.20 Cocaine dependence, uncomplicated; R45.851 Suicidal ideations; E11.9 Type 2 diabetes mellitus without complications; E78.00 Pure hypercholesterolemia, unspecified; Y90.6 Blood alcohol level of 120-199 mg/100 ml; I10 Essential (primary) hypertension; R45.850 Homicidal ideations

== ENCOUNTER 2017-11-06 19:18 | Inpatient (IN) | payer MEDICARE, MEDICAID ==
[2017-11-06 19:19] VITALS: BMI 41.1
--- NOTE | 2017-11-06 19:39 | C.PDOC ---
History Of Present Illness 52 year old male is brought to the ED for evaluation. Patient waled [place] the [place] stating that he wanted to kill his and himself. Patient is pleasant and cooperative. Patient states he does not have a particular plan. Patient denies fever, chills, nausea, CP, SOB, hallucinations, trauma. Time Seen by Provider: 11/06/17 19:39 Chief Complaint (Nursing): Psychiatric Evaluation History Per: Patient, EMS History/Exam Limitations: no limitations Onset/Duration Of Symptoms: Hrs Current Symptoms Are (Timing): Still Present Suicide/Self Injury Attempted (Context): Other Modifying Factor(s): None Associated Symptoms: Depression, Suicidal Thoughts, Suicidal Plan Recent travel outside of the [place]: No Additional History Per: Patient, EMS Past Medical History Reviewed: Historical Data, Nursing Documentation, Vital Signs Vital Signs: Last Vital Signs Temp 98.1 F 11/06/17 22:05 Pulse 96 H 11/06/17 22:05 Resp 19 11/06/17 22:05 BP 103/71 11/06/17 22:05 Pulse Ox 98 11/06/17 22:05 - Medical History PMH: Bipolar Disorder, Depression, Diabetes, HTN, Hypercholesterolemia Denies: Hepatitis, HIV, Chronic Kidney Disease, Seizures, Sexually Transmitted Disease Surgical History: No Surg Hx - [facility] DETOXIFICATION SERVICES FOR SUBSTANCE ABUSE TREATMENT (10/07/17) GROUP ONLINE MEDIA DIRECTOR FOR SUBSTANCE ABUSE TREATMENT, PSYCHOEDUCATION (10/07/17) GROUP ONLINE MEDIA DIRECTOR FOR SUBSTANCE ABUSE, COGNITIVE BEHAVIORAL (10/07/17) GROUP PSYCHOTHERAPY (10/07/17) INDIV PSYCHOTHERAPY FOR SUBSTANCE ABUSE TREATMENT, SUPPORT (10/07/17) INDIV PSYCHOTHERAPY FOR SUBSTANCE ABUSE, COGNITIV BEHAVIORAL (10/07/17) INDIV PSYCHOTHERAPY FOR SUBSTANCE ABUSE, PSYCHOEDUCATION (10/07/17) INDIVIDUAL PSYCHOTHERAPY, COGNITIVE-BEHAVIORAL (10/07/17) INDIVIDUAL PSYCHOTHERAPY, SUPPORTIVE (10/07/17) MEDICATION MANAGEMENT (03/18/17) MEDS MGMT FOR SUBSTANCE ABUSE TREATMENT, OTH REPL MED (03/18/17) Family History: States: Unknown Family Hx - Social History Hx Alcohol Use: Yes Hx Substance Use: Yes (COCAINE) - Immunization History Hx Tetanus Toxoid Vaccination: No Hx Influenza Vaccination: No Hx Pneumococcal Vaccination: No Review Of Systems Constitutional: Negative for: Fever, Chills Cardiovascular: Negative for: Chest Pain Respiratory: Negative for: Cough, Shortness of Breath Gastrointestinal: Negative for: Nausea, Vomiting, Abdominal Pain Skin: Negative for: Rash Psych: Positive for: Depression, Suicidal ideation Physical Exam - Physical Exam Appears: Non-toxic, Other (depressed affect) Skin: Warm, Dry Head: Normacephalic Eye(s): bilateral: Normal Inspection Neck: Supple Chest: Symmetrical Cardiovascular: Rhythm Regular Respiratory: No Rales, No Rhonchi, No Wheezing Gastrointestinal/Abdominal: Soft, No Tenderness, No Guarding, No Rebound Back: Normal Inspection Extremity: No Tenderness, No Swelling Extremity: Bilateral: Atraumatic, Normal Color And Temperature, Normal ROM Neurological/Psych: Oriented x3, Normal Speech Gait: Steady ED Course And Treatment - Laboratory Results Result Diagrams: 11/06/17 19:45 11/06/17 19:45 ECG: Interpreted By Me, Viewed By Me ECG Rhythm: Sinus Rhythm (98), Nonspecific Changes O2 Sat by Pulse Oximetry: 96 (ON RA) Pulse Ox Interpretation: Normal - Radiology CXR: Interpreted by Me, Viewed By Me CXR Interpretation: Yes: Other (unchanged from 09/13). No: Infiltrates, Fracture , Pnemothorax Progress Note: Plan: - Labs. - 1:1 Obs. - UA. Pt is medicaaly cleared for transfer to [facility] . Pt was accepted by dr Robb Schneider to the adult psych at [place], Disposition Counseled Patient/Family Regarding: Studies Performed, Diagnosis - Disposition Disposition: OTHER INSTITUTION Disposition Time: 19:39 Condition: FAIR Forms: [facility] (Thai) - Clinical Impression Clinical Impression: Depression - Scribe Statement The provider has reviewed the documentation as recorded by the Scribe Collin Mayer All medical record entries made by the Scribe were at my direction and personally dictated by me. I have reviewed the chart and agree that the record accurately reflects my personal performance of the history, physical exam, medical decision making, and the department course for this patient. I have also personally directed, reviewed, and agree with the discharge instructions and disposition.
[2017-11-06 19:49] LABS: BASO # 0.1 K/uL (0.0-0.2); BASO % 0.6 % (0.0-2.0); EOS % 0.5 % (0.0-4.0); HEMOGLOBIN 12.9 g/dL (12.0-18.0); LYMPH # 1.6 K/uL (1.0-4.3); MEAN CELL VOLUME 87.5 fL (80.0-94.0); MEAN CORPUSCULAR HEMOGLOBIN 30.2 pg (27.0-31.0); MEAN CORPUSCULAR HGB CONC 34.5 g/dL (33.0-37.0); MEAN PLATELET VOLUME 8.3 fL (7.2-11.7); MONO # 0.8 K/uL (0.0-0.8); MONO % 8.8 % (0.0-10.0); NEUT # 6.6 K/uL (1.8-7.0); NEUT % 72.1 % (50.0-75.0); NRBC % 0.1 % (0.0-2.0); RBC 4.28 Mil/uL (4.40-5.90); RED CELL DISTRIBUTION WIDTH 14.5 % (11.5-14.5); WHITE BLOOD COUNT 9.2 K/uL (4.8-10.8)
[2017-11-06 19:54] LABS: SQUAMOUS EPITHIAL < 1 /hpf (0-5); URINE BILIRUBIN NEGATIVE (NEGATIVE); URINE BLOOD NEGATIVE (NEGATIVE); URINE CLARITY Hazy (Clear); URINE COLOR Yellow (YELLOW); URINE GLUCOSE (UA) 2+ mg/dL (Normal); URINE LEUKOCYTE ESTERASE NEG Leu/uL (Negative); URINE PROTEIN 2+ mg/dL (NEGATIVE); URINE UROBILINOGEN NORMAL mg/dL (0.2-1.0)
[2017-11-06 20:05] LABS: ALB/GLOB RATIO 1.5 (1.0-2.1); ALBUMIN 4.9 g/dL (3.5-5.0); ALT/SGPT 31 U/L (21-72); AST/SGOT 37 U/L (17-59); BLOOD UREA NITROGEN 10 mg/dL (9-20); CALCIUM 9.4 mg/dl (8.6-10.4); GFR NON-AFRICAN AMERICAN > 60
[2017-11-06 20:06] LABS: BARBITURATES, UR NEGATIVE (NEGATIVE); BENZODIAZEPINES, UR NEGATIVE (NEGATIVE); PHENCYCLIDINE, UR NEGATIVE (NEGATIVE)
[2017-11-06 20:07] LABS: OPIATES, UR POSITIVE (NEGATIVE)
--- NOTE | 2017-11-07 01:09 | PCM.BM ---
<Phill Mcbride - Last Filed: 11/07/17 01:06> Treatment Plan Problems - Problems identified on initial assessmt DEPRESSION Date Initiated: 11/07/17 Time Initiated: 00:55 Assessment reference: NA Status: Active SUBSTANCE ABUSE Date Initiated: 11/07/17 Time Initiated: 00:55 Assessment reference: NA Status: Active Treatment assets and liabiliti Patient Assests: adapts well, cooperative, self-reliant, ADL independent, negotiates basic needs Patient Liabilities: live alone, financial problems, poor support system, relationship conflicts, dietary restrictions, substance abuse - Milieu Protocol Maintain good personal hygiene: daily Encourage regular showers, daily Remind patient to perform daily oral care, daily Assist patient to perform ADL's Maintain personal safety: every shift Educate patient to report safety concerns to staff, every shift Monitor environment for contraband/sharps Medication safety: Monitor for expected outcome, potential side effects: every shift, Assess barriers to learning: every shift, Assess readiness for medication education: every shift <Erica Zhang - Last Filed: 11/08/17 10:35> - Diagnosis (1) Bipolar 1 disorder Status: Acute Interventions: 11/08/17 10:35 * Assess/adjust medications daily and /or as needed * See patient on an individual basis 7x/week to assess level of manic behaviors and stability * Discuss risks, benefits, side effects and alternatives of medications * (2) Alcohol abuse Status: Acute Interventions: 11/08/17 10:35 * Assess 7x/week regarding severity of withdrawal * Educate regarding risks, benefits, side effects and alternatives of medications * Use Motivational Interviewing for abstinence * Use CBT for relapse prevention * Medication management for withdrawal symptoms * Encourage medication assisted treatment * <Gely Valdovinos - Last Filed: 11/08/17 15:49> Family Contact Family involvement: Patient does not wish Family/SO involvement Family contact: Patient declines to allow family contact at present - Goals for Treatment Patient goals for treatment: "I want to be referred to an outpatient program." Discharge/Continuing Care - Education Needs Education Needs: Patient Medication, Patient Diagnosis/Disease Process, Patient Coping Skills - Discharge Discharge Criteria: Free of Suicidal thoughts, Normal sleep pattern, Ability to care for self, No longer exhibiting s/s of withdrawal, Reduction of target symptoms Discharge to:: Penitentiary - Treatment Team Participation Discussed with Family/SO: No Was Patient/Family/SO present at Treatment Team Meeting: Yes
--- NOTE | 2017-11-07 15:18 | RAD ---
Date of service: 11/06/2017 PROCEDURE: CHEST RADIOGRAPH, 1 VIEW HISTORY: psych clearance COMPARISON: Comparison is made with 09/20/2017 FINDINGS: LUNGS: No evidence of new infiltrate or consolidation in the lungs. PLEURA: No pneumothorax or pleural fluid seen. CARDIOVASCULAR: Normal. OSSEOUS STRUCTURES: No significant abnormalities. VISUALIZED UPPER ABDOMEN: Normal. OTHER FINDINGS: None. IMPRESSION: No active disease.
[2017-11-07] MEDS ORDERED: Aluminum Hydroxide/Magnesium Hydroxide Susp (30 mL) PO PRN (16:42)
--- NOTE | 2017-11-07 16:55 | PCM.PSYCH ---
Initial Psychiatric Evaluation - Initial Psychiatric Evaluation Type of Admission: Voluntary Legal Status: Capacity Chief Complaint (in patient's own words): I had homicidal and suicidal ideations with plan. History of Present Illness and Precipitating Events: Patient is a 52 years old, single, unemployed, on disability, -[place] male with history of bipolar disorder, noncompliant with treatment. Also has history of alcohol, cocaine and heroin use. Patient was admitted due to worsening of depression, suicidal and homicidal ideations and withdrawing from his substance use. Patient reported he stopped taking medication a few days ago, started feeling depressed and homicidal towards his ex- and suicidal with plan. Patient reported that he wanted to kill his with a knife and later want to kill himself by cutting his neck with the same knife. When asked about the knife patient reported that the knife is and his ex-'s home. Patient reported that his plan was to go there to get the knife, kill his ex- and then kill himself but he came to the hospital. Reported feeling depressed with decreased sleep and appetite but gained about 15 pounds over last 21 days. Reported history of 5 suicidal attempts in the past by different meanings including jumping in front of train, cutting on his left wrist and with poison. Patient reported he was admitted in the hospital after all these attempts. History of more than 10 inpatient psychiatric admissions. His last admission was at [facility]] about one month ago. After discharge from the hospital patient did not have any follow-up with any psychiatrist. It appears when patient is out of medication he started having these thoughts and come to the hospital. Denied any current manic, anxiety or psychotic symptoms. X Heroin: He reported that his last use of heroin was 2 days ago. According to him he used heroin first time 3 days ago only one bag and stopped after that. Alcohol: Started drinking alcohol at 19 years of age, increased gradually currently he was drinking 3 beers each of 24 ounces daily. His last drink was 2 days ago. Denied any previous detox or rehabs. Cocaine: Started using cocaine at 19 years of age. Using $20 worth daily, sniffing. Last used 2 days ago. He smokes 10 cigarettes daily. Refused to get nicotine patch. He was born in [place], has one year of college education. Not working and is on disability. His last job was 2 years ago. He is and has no children. He was living with his mother. His height is 5 feet 11 inches and weight is 260 pounds. Patient wants to go to psychiatric outpatient for follow-up care after discharge from the hospital. Current Medications: Active Medications Generic Name Dose Route Start Last Admin Trade Name Freq PRN Reason Stop Dose Admin Al Hydrox/Mg Hydrox/Simethicone 30 ml 11/07/17 16:42 Maalox 30 Ml PO TID PRN Indigestion / Heartburn Chlordiazepoxide 25 mg 11/07/17 16:43 Librium PO Q4H PRN Alcohol Withdrawal Clonidine HCl 0.1 mg 11/07/17 16:42 Catapres PO Q8 PRN COWS Score More or Equal to 5 Folic Acid 1 mg 11/07/17 16:45 Folic Acid PO DAILY ESTUARDO Hydroxyzine HCl 25 mg 11/07/17 01:01 11/07/17 01:19 Atarax PO 25 mg Q6 PRN Administration Anxiety Loperamide HCl 2 mg 11/07/17 16:42 Imodium PO Q8 PRN Diarrhea Metformin HCl 1,000 mg 11/07/17 10:00 11/07/17 09:25 Glucophage PO 1,000 mg BID ESTUARDO Administration Multivitamins 1 tab 11/07/17 16:45 Hexavitamin PO DAILY ESTUARDO Ondansetron HCl 4 mg 11/07/17 16:42 Zofran Tab PO Q8 PRN Nausea/Vomiting Pneumococcal Polyvalent Vaccine 0.5 ml 11/08/17 10:00 Pneumovax 23 Vaccine IM 11/08/17 10:01 .ONCE ONE Thiamine HCl 100 mg 11/07/17 16:45 Vitamin B1 Tab PO DAILY ESTUARDO Trazodone HCl 50 mg 11/07/17 01:01 11/07/17 01:19 Desyrel PO 50 mg HS PRN Administration Sleep Ziprasidone 40 mg 11/07/17 18:00 Geodon Cap PO BID ESTUARDO Past Psychiatric History - Past Psychiatric History Previous Treatment History: Inpatient At [facility]: Mostly at [facility] History of Abuse: None reported History of ETOH/Drug Use: See HPI History of Family Illness: None reported Pertinent Medical Hx (Current Medical&Sleep Prob, Allergies): Allergies Allergy/AdvReac Type Severity Reaction Status Date / Time No Known Allergies Allergy Verified 11/06/17 19:30 MetFORMIN [glucOPHAGE] 1,000 mg PO BID 11/06/17 Diabetes mellitus Hypercholesterinemia Review of Systems - Psychiatric Psychiatric: As Per HPI, Depression Mental Status Examination - Personal Presentation Personal Presentation: Looks stated age - Affect Affect: Depressed - Motor Activity Motor Activity: Calm - Reliability in Providing Information Reliability in Providing Information: Fair - Speech Speech: Relevant - Mood Mood: Depressed - Formal Thought Process Formal Thought Process: No Impairment - Hallucinations/Delusions Hallucinations: Other (None reported) Delusions: Other - Obsessions/Compulsions Obsessions: None Compulsions: None - Cognitive Functions Orientation: Person, Place, Situation, Time Sensorium: Alert Attention/Concentration: Attentive Abstract Thinking: Early Branch Estimate of Intelligence: Average Judgement: Intact, as evidence by: Insight regarding need for hospitalization Memory: Recent intact, as evidence by: Ability to recall events of the day, Remote intact, as evidenced by: Ability to recall historical events - Risk Risk: Withdrawal, Diminished functioning - Strength & Assets Inventory Strength & Assets Inventory: Family support, Cooperative - Limitations Limitations: Other DSM 5 DX - DSM 5 DSM 5 Diagnosis: Bipolar 1 disorder most recent episode depressed without psychotic features. Alcohol use disorder severe. Cocaine use disorder severe. Opiate use disorder - Recommended/Plan of Treatment Treatment Recommendations and Plan of Treatment: Patient education. Supportive therapy. CBT for relapse prevention. IA for abstinence. Will start Geodon and Zoloft as patient was discharged on his medications. Will start Librium when necessary for alcohol withdrawal symptoms. We will start clonidine for opiate withdrawal symptoms. Other when necessary medications. Projected ELOS: 8-10 days - Smoking Cessation Smoking Cessation Initiated: No Reason for not providing: Patient refused
[2017-11-07] MEDS: Multiple Vitamins Tab PO SCH (17:24)
[2017-11-08] MEDS: Multiple Vitamins Tab PO SCH (09:36)
[2017-11-08] MEDS ORDERED: Pneumococcal 23-Valent Vaccine IM ONE (10:00)
--- NOTE | 2017-11-08 10:35 | PCM.PYCHPN ---
Psychiatric Progress Note - Psychiatric Progress Note Patient seen today, length of contact: 15 min Patient Chief Complaint: "I'm depressed" Problems Identified/Issues Discussed: Pt stated he is feeling depressed because his is blaming him for everything that is going wrong with their marriage. He says that last time they fought he wanted to kill his , which is why he came into the hospital. Pt seems to have a blunted affect while talking, is malodorous but otherwise appears kempt. His thoughts and speech were coherent and relevant. He does complain about having the "chills." Medication Change: Yes Medical Record Reviewed: Yes Mental Status Examination - Cognitive Function Orientation: Person, Place, Situation, Time Memory: Intact Attention: WNL Concentration: Poor Association: WNL Fund of Knowledge: Poor - Mood Mood: Depressed, Anxious - Affect Affect: Constricted, Depressed - Speech Speech: Soft - Formal Thought Process Formal Thought Process: No Impairment - Suicidal Ideation Suicidal Ideation: No - Homicidal Ideation Homicidal Ideation: Yes Plan: Said that he wanted to kill his Goal/Treatment Plan - Goal/Treatment Plan Need for Continued Stay: Severe depression anxiety, Severe functional impairment Progress Toward Problem(s) and Goals/Treatment Plan: Bipolar 1 disorder most recent episode depressed without psychotic features. Alcohol use disorder severe. Cocaine use disorder severe. Opiate use disorder Patient education. Supportive therapy. CBT for relapse prevention. MA for abstinence. Geodon 40 mg PO BID Zoloft 50 mg PO Daily Librium when necessary for alcohol withdrawal symptoms. clonidine for opiate withdrawal symptoms. Other when necessary medications.
[2017-11-09] MEDS: Multiple Vitamins Tab PO SCH (10:47)
--- NOTE | 2017-11-09 15:14 | PCM.PYCHPN ---
Psychiatric Progress Note - Psychiatric Progress Note Patient seen today, length of contact: 15 min Patient Chief Complaint: "I'm depressed" Problems Identified/Issues Discussed: Pt reported still feeling depressed, he hasn't been sleeping well, appetite has been decreased also. Said that he heard voices telling him to kill his last night as well as reported seeing shadows move in his room. Denies any suicidal ideations, says that he does want to kill his . Pt seems to have a blunted and depressed affect, appears well-kempt. His thoughts and speech were coherent and relevant. Medication Change: Yes Medical Record Reviewed: Yes Mental Status Examination - Cognitive Function Orientation: Person, Place, Situation, Time Memory: Intact Attention: WNL Concentration: Poor Association: WNL Fund of Knowledge: Poor - Mood Mood: Depressed, Anxious, Homicidal Ideation - Affect Affect: Constricted, Blunted, Depressed - Speech Speech: Soft - Formal Thought Process Formal Thought Process: No Impairment, Hallucinations - Suicidal Ideation Suicidal Ideation: No - Homicidal Ideation Homicidal Ideation: Yes Goal/Treatment Plan - Goal/Treatment Plan Need for Continued Stay: Severe depression anxiety, Severe functional impairment Progress Toward Problem(s) and Goals/Treatment Plan: Bipolar 1 disorder most recent episode depressed without psychotic features. Alcohol use disorder severe. Cocaine use disorder severe. Opiate use disorder Patient education. Supportive therapy. CBT for relapse prevention. CO for abstinence. Geodon 40 mg PO BID Zoloft 50 mg PO Daily Librium when necessary for alcohol withdrawal symptoms. Clonidine for opiate withdrawal symptoms. Other when necessary medications. - Smoking Cessation Smoking Cessation Initiated: No
[2017-11-10] MEDS: Multiple Vitamins Tab PO SCH (10:58)
--- NOTE | 2017-11-10 11:22 | PCM.PYCHPN ---
Psychiatric Progress Note - Psychiatric Progress Note Patient seen today, length of contact: 15 min Patient Chief Complaint: "I'm still depressed" Problems Identified/Issues Discussed: Pt stated he is still feeling depressed and would like his medication dosage to be increased or changed since he doesn't feel better. Still mentions that he is hearing voices telling him to kill his . Pt seems to have a blunted affect while talking, appears kempt. He is still isolative and only comes out for meals , which he says hasn't been eating frequently either due to decreased appetite. His thoughts and speech were coherent and relevant. Medication Change: Yes Medical Record Reviewed: Yes Mental Status Examination - Cognitive Function Orientation: Person, Place, Situation, Time Memory: Intact Attention: WNL Concentration: Poor Association: WNL Fund of Knowledge: Poor - Mood Mood: Depressed, Anxious, Homicidal Ideation - Affect Affect: Constricted, Blunted, Depressed - Speech Speech: Soft - Formal Thought Process Formal Thought Process: Hallucinations - Suicidal Ideation Suicidal Ideation: No - Homicidal Ideation Homicidal Ideation: Yes Goal/Treatment Plan - Goal/Treatment Plan Need for Continued Stay: Severe depression anxiety, Severe functional impairment Progress Toward Problem(s) and Goals/Treatment Plan: Bipolar 1 disorder most recent episode depressed without psychotic features. Alcohol use disorder severe. Cocaine use disorder severe. Opiate use disorder Patient education. Supportive therapy. CBT for relapse prevention. [place] for abstinence. Geodon 60 mg PO BID Zoloft 50 mg PO Daily Start Neurontin 300 mg po TID Librium when necessary for alcohol withdrawal symptoms. clonidine for opiate withdrawal symptoms. Other when necessary medications.
[2017-11-11] MEDS: Multiple Vitamins Tab PO SCH (10:10)
--- NOTE | 2017-11-11 11:44 | PCM.PYCHPN ---
Psychiatric Progress Note - Psychiatric Progress Note Patient seen today, length of contact: 15 min Patient Chief Complaint: "I'm still depressed" Problems Identified/Issues Discussed: Pt states that he is still feeling depressed and is apprehensive to leaving today and wants to stay on the floor longer. He said that his meds are not working so would like to have them changed. Still mentions hearing voices telling him to "kill" over and over, and seeing shadows move. Pt seems to have a blunted affect while talking, appears kempt. He is less isolative today and has been walking around the floor more. Says that his sleep is still troubled and appetite is still decreased. His thoughts and speech were coherent and relevant. Pt was pleasant and cooperative. Medication Change: Yes Medical Record Reviewed: Yes Mental Status Examination - Cognitive Function Orientation: Person, Place, Situation, Time Memory: Intact Attention: WNL Concentration: Poor Association: Loose Fund of Knowledge: Poor - Mood Mood: Depressed, Anxious, Homicidal Ideation - Affect Affect: Constricted, Blunted, Depressed - Speech Speech: Appropriate - Formal Thought Process Formal Thought Process: Hallucinations - Suicidal Ideation Suicidal Ideation: No - Homicidal Ideation Homicidal Ideation: Yes Plan: no plan Goal/Treatment Plan - Goal/Treatment Plan Need for Continued Stay: Severe depression anxiety, Severe functional impairment Progress Toward Problem(s) and Goals/Treatment Plan: Bipolar 1 disorder most recent episode depressed without psychotic features. Alcohol use disorder severe. Cocaine use disorder severe. Opiate use disorder Patient education. Supportive therapy. CBT for relapse prevention. [place] for abstinence. Geodon 60 mg PO BID Zoloft 50 mg PO Daily Neurontin 300 mg po TID Librium when necessary for alcohol withdrawal symptoms. clonidine for opiate withdrawal symptoms. Other when necessary medications. - Smoking Cessation Smoking Cessation Initiated: No
--- NOTE | 2017-11-11 12:38 | PCM.PYCHPN ---
Psychiatric Progress Note - Psychiatric Progress Note Patient seen today, length of contact: 15 min Patient Chief Complaint: "I'm still depressed" Problems Identified/Issues Discussed: Pt states that he is still feeling depressed and is apprehensive to leaving today and wants to stay on the floor longer. He said that his meds are not working so would like to have them changed. Still mentions hearing voices telling him to "kill" over and over, and seeing shadows move. Pt seems to have a blunted affect while talking, appears kempt. He is less isolative today and has been walking around the floor more. Says that his sleep is still troubled and appetite is still decreased His thoughts and speech were coherent and relevant. Medication Change: Yes Medical Record Reviewed: Yes Mental Status Examination - Cognitive Function Orientation: Person, Place, Situation, Time Memory: Intact Attention: WNL Concentration: Poor Association: WNL Fund of Knowledge: Poor - Mood Mood: Depressed, Anxious, Homicidal Ideation - Affect Affect: Constricted, Blunted, Depressed - Speech Speech: Soft - Formal Thought Process Formal Thought Process: Hallucinations - Suicidal Ideation Suicidal Ideation: No - Homicidal Ideation Homicidal Ideation: Yes Goal/Treatment Plan - Goal/Treatment Plan Need for Continued Stay: Severe depression anxiety, Severe functional impairment Progress Toward Problem(s) and Goals/Treatment Plan: Bipolar 1 disorder most recent episode depressed without psychotic features. Alcohol use disorder severe. Cocaine use disorder severe. Opiate use disorder Patient education. Supportive therapy. CBT for relapse prevention. [place] for abstinence. Geodon 60 mg PO BID Zoloft 50 mg PO Daily Start Neurontin 300 mg po TID Librium when necessary for alcohol withdrawal symptoms. clonidine for opiate withdrawal symptoms. Other when necessary medications.
[2017-11-12] MEDS: Multiple Vitamins Tab PO SCH (09:46)
--- NOTE | 2017-11-12 16:56 | PCM.PYCHPN ---
Psychiatric Progress Note - Psychiatric Progress Note Patient seen today, length of contact: 15 min Patient Chief Complaint: "I'm still depressed" Problems Identified/Issues Discussed: The pt is seen, chart reviewed, case discussed with staff. Pt states that he is still hearing voices telling him to kill but denies having any visual hallucinations recently. Still mentions that he hasnt been sleeping well and is requesting that his medications be changed. The pt is compliant with medications and reports no side-effects. Symptoms are improving but needs more time to stabilize. Pt attends groups and activities. Support given, psycho-education provided. After care discussed. Medication Change: Yes (add seroquel for insomnia) Medical Record Reviewed: Yes Mental Status Examination - Cognitive Function Orientation: Person, Place, Situation, Time Memory: Intact Attention: WNL Concentration: Poor Association: Loose Fund of Knowledge: Poor - Mood Mood: Depressed, Anxious, Homicidal Ideation - Affect Affect: Constricted, Blunted, Depressed - Speech Speech: Appropriate - Formal Thought Process Formal Thought Process: Hallucinations - Suicidal Ideation Suicidal Ideation: No - Homicidal Ideation Homicidal Ideation: Yes Goal/Treatment Plan - Goal/Treatment Plan Need for Continued Stay: Severe depression anxiety, Severe functional impairment Progress Toward Problem(s) and Goals/Treatment Plan: Continue medications Support and psychoeducation daily Attend groups and activities daily After care planning by JEANNA
[2017-11-13] MEDS: Multiple Vitamins Tab PO SCH (09:17)
--- NOTE | 2017-11-13 22:55 | PCM.PYCHPN ---
Psychiatric Progress Note - Psychiatric Progress Note Patient seen today, length of contact: 15 min Patient Chief Complaint: iI'M SAD. I CAN'T GET WELL Problems Identified/Issues Discussed: PT SEEN AND EXAMINED DISCUSSED WITH STAFF DISCUSSED WITH PT THE NECESSITY OF MEDICATION ADHERENCE AND FOLLOW UP THERAPY Medical Problems: NONE NOTED OR REPORTED Diagnostic Results: REVIEWED Medication Change: No Medical Record Reviewed: Yes Mental Status Examination - Cognitive Function Orientation: Person, Place, Time Memory: Intact Concentration: Poor Association: Loose - Mood Mood: Depressed, Anxious, Homicidal Ideation - Affect Affect: Constricted, Blunted, Depressed - Speech Speech: Appropriate - Formal Thought Process Formal Thought Process: Hallucinations, Paranoia - Suicidal Ideation Suicidal Ideation: No - Homicidal Ideation Homicidal Ideation: Yes Goal/Treatment Plan - Goal/Treatment Plan Need for Continued Stay: Severe depression anxiety, Severe functional impairment Progress Toward Problem(s) and Goals/Treatment Plan: BIPOLAR DISORDER DEPRESSED SEVERE WITH PSYCHOTIC FEATURES LISA GARCIA [facility] AND RECREATIONAL THERAPY AND SUPPORTIVE PSYCHOTHERAPY Estimated Date of D/C: 11/22/17
[2017-11-14] MEDS: Multiple Vitamins Tab PO SCH (09:41)
--- NOTE | 2017-11-15 00:52 | PCM.PYCHPN ---
Psychiatric Progress Note - Psychiatric Progress Note Patient seen today, length of contact: 15 min Patient Chief Complaint: I,M READY TO LEAVE! Problems Identified/Issues Discussed: PT SEEN AND EXAMINED DISCUSSED WITH STAFF DISCUSSED WITH PT [employer] Medical Problems: NONE NOTED OR REPORTED Diagnostic Results: REVIEWED Medication Change: No Medical Record Reviewed: Yes Mental Status Examination - Cognitive Function Orientation: Person, Place, Situation Memory: Intact Attention: WNL Concentration: Poor Association: WNL Fund of Knowledge: WNL - Mood Mood: Depressed, Anxious, Homicidal Ideation - Affect Affect: Constricted, Blunted, Depressed - Formal Thought Process Formal Thought Process: Hallucinations, Paranoia - Homicidal Ideation Homicidal Ideation: No Goal/Treatment Plan - Goal/Treatment Plan Need for Continued Stay: Severe depression anxiety, Failed transitioning, Severe functional impairment Progress Toward Problem(s) and Goals/Treatment Plan: BIPOLAR DISORDER DEPRESSED SEVERE WITH PSYCHOTIC FEATURES LISA GARCIA CBT [facility] AND RECREATIONAL THERAPY AND SUPPORTIVE PSYCHOTHERAPY Estimated Date of D/C: 11/22/17 - Smoking Cessation Smoking Cessation Initiated: No
--- NOTE | 2017-11-15 08:54 | CARD ---
APPROVED REPORT Date of service: 11/06/2017 EKG Measurement Heart [id number] <Conclusion> Normal sinus rhythm Possible Left atrial enlargement Borderline ECG
--- NOTE | 2017-11-15 10:08 | PCM.PYCHPN ---
Psychiatric Progress Note - Psychiatric Progress Note Patient seen today, length of contact: 15 min Patient Chief Complaint: "I'm still depressed" Problems Identified/Issues Discussed: Pt states that he is still feeling depressed and still mentions that he is hearing voices telling him to "kill" over and over, and seeing shadows move. Pt seems to have a blunted affect while talking, appears kempt. He is less isolative today and has been walking around the floor more. Says that his sleep is still troubled and appetite is still decreased. His thoughts and speech were coherent and relevant. Pt was pleasant and cooperative. Medication Change: No Medical Record Reviewed: Yes Mental Status Examination - Cognitive Function Orientation: Person, Place, Situation Memory: Intact Attention: WNL Concentration: Poor Association: WNL Fund of Knowledge: Poor - Mood Mood: Depressed, Anxious, Homicidal Ideation - Affect Affect: Constricted, Blunted, Depressed - Speech Speech: Appropriate - Formal Thought Process Formal Thought Process: Hallucinations, Paranoia - Suicidal Ideation Suicidal Ideation: No - Homicidal Ideation Homicidal Ideation: No Goal/Treatment Plan - Goal/Treatment Plan Need for Continued Stay: Severe depression anxiety, Failed transitioning, Severe functional impairment Progress Toward Problem(s) and Goals/Treatment Plan: Bipolar 1 disorder most recent episode depressed without psychotic features. Alcohol use disorder severe. Cocaine use disorder severe. Opiate use disorder Patient education. Supportive therapy. CBT for relapse prevention. [place] for abstinence. Geodon 60 mg PO BID Zoloft 50 mg PO Daily Neurontin 300 mg po TID Librium when necessary for alcohol withdrawal symptoms. clonidine for opiate withdrawal symptoms. Other when necessary medications. Start Haldol 5 mg PO BID Estimated Date of D/C: 11/22/17
[2017-11-15] MEDS: Multiple Vitamins Tab PO SCH (10:25)
[2017-11-16] MEDS: Multiple Vitamins Tab PO SCH (09:50)
--- NOTE | 2017-11-16 23:50 | PCM.PYCHPN ---
Psychiatric Progress Note - Psychiatric Progress Note Patient seen today, length of contact: 15 min Patient Chief Complaint: "I'm still depressed" Problems Identified/Issues Discussed: Patient seen and evaluated, chart reviewed and discussed with the nurse. Pt still reports depressed mood, and feelings of hopelessness and helplessness. He still reports auditory hallucinations command type to kill himself and visual hallucinations, seeing shadows. He remained isolated and withdrawn, and confined to his room. His thoughts and speech were coherent and relevant. Pt was pleasant and cooperative. Patient is compliant with medications and denies any side effects. Symptoms are improving but pt needs more time to stabilize. Support and psychoeducation given. Medication Change: Yes Medical Record Reviewed: Yes Mental Status Examination - Cognitive Function Orientation: Person, Place, Situation Memory: Intact Attention: WNL Concentration: Poor Association: WNL Fund of Knowledge: Poor - Mood Mood: Depressed, Anxious, Homicidal Ideation - Affect Affect: Constricted, Blunted, Depressed - Speech Speech: Appropriate - Formal Thought Process Formal Thought Process: Hallucinations, Paranoia - Suicidal Ideation Suicidal Ideation: No - Homicidal Ideation Homicidal Ideation: No Goal/Treatment Plan - Goal/Treatment Plan Need for Continued Stay: Severe depression anxiety, Failed transitioning, Severe functional impairment Progress Toward Problem(s) and Goals/Treatment Plan: Bipolar 1 disorder most recent episode depressed without psychotic features. Alcohol use disorder severe. Cocaine use disorder severe. Opiate use disorder Patient education. Supportive therapy. CBT for relapse prevention. [place] for abstinence. Geodon 60 mg PO BID Zoloft 50 mg PO Daily Neurontin 300 mg po TID Librium when necessary for alcohol withdrawal symptoms. clonidine for opiate withdrawal symptoms. Other when necessary medications. Haldol 5 mg PO BID Estimated Date of D/C: 11/22/17
[2017-11-17] MEDS: Multiple Vitamins Tab PO SCH (09:47)
--- NOTE | 2017-11-17 14:46 | PCM.PYCHPN ---
Psychiatric Progress Note - Psychiatric Progress Note Patient seen today, length of contact: 15 min Patient Chief Complaint: "I'm still depressed" Problems Identified/Issues Discussed: The pt is seen, chart reviewed, case discussed with staff. Pt states that he feels fine, but it is noted that he has not been eating all his meals and has remained isolative in the unit. Pt didn't appear to be upset or anxious when informed he will be discharged tomorrow. The pt is compliant with medications and reports no side-effects. Symptoms are improving but needs more time to stabilize. Pt attends groups and activities. Support given, psycho-education provided. After care discussed. Medication Change: No Medical Record Reviewed: Yes Mental Status Examination - Cognitive Function Orientation: Person, Place, Situation Memory: Intact Attention: WNL Concentration: Poor Association: WNL Fund of Knowledge: Poor - Mood Mood: Depressed, Anxious - Affect Affect: Constricted, Blunted, Depressed - Speech Speech: Appropriate - Formal Thought Process Formal Thought Process: No Impairment - Suicidal Ideation Suicidal Ideation: No - Homicidal Ideation Homicidal Ideation: No Goal/Treatment Plan - Goal/Treatment Plan Need for Continued Stay: Severe depression anxiety, Failed transitioning, Severe functional impairment Progress Toward Problem(s) and Goals/Treatment Plan: Continue medications Support and psychoeducation daily Attend groups and activities daily After care planning by JEANNA 15 min Estimated Date of D/C: 11/22/17
[2017-11-17 16:44] VITALS: O2SAT 97
[2017-11-18] MEDS: Multiple Vitamins Tab PO SCH (10:20)
--- NOTE | 2017-11-18 13:43 | PCM.PYCHPN ---
Psychiatric Progress Note - Psychiatric Progress Note Patient seen today, length of contact: 15 min Patient Chief Complaint: "I'm still depressed" Problems Identified/Issues Discussed: Pt states that he is still feeling depressed and still mentions that he is hearing voices telling him to "kill" over and over, and seeing shadows move. Pt seems to have a blunted affect while talking, appears kempt. He is less isolative today and has been walking around the floor more. Says that his sleep is still troubled and appetite is still decreased. His thoughts and speech were coherent and relevant. Pt was pleasant and cooperative. Medication Change: No Medical Record Reviewed: Yes Mental Status Examination - Cognitive Function Orientation: Person, Place, Situation Memory: Intact Attention: WNL Concentration: Poor Association: WNL Fund of Knowledge: Poor - Mood Mood: Depressed, Anxious - Affect Affect: Constricted, Blunted, Depressed - Speech Speech: Appropriate - Formal Thought Process Formal Thought Process: No Impairment - Suicidal Ideation Suicidal Ideation: No - Homicidal Ideation Homicidal Ideation: No Goal/Treatment Plan - Goal/Treatment Plan Need for Continued Stay: Severe depression anxiety, Failed transitioning, Severe functional impairment Progress Toward Problem(s) and Goals/Treatment Plan: Bipolar 1 disorder most recent episode depressed without psychotic features. Alcohol use disorder severe. Cocaine use disorder severe. Opiate use disorder Patient education. Supportive therapy. CBT for relapse prevention. [place] for abstinence. Geodon 60 mg PO BID Zoloft 50 mg PO Daily Neurontin 300 mg po TID Librium when necessary for alcohol withdrawal symptoms. clonidine for opiate withdrawal symptoms. Other when necessary medications. Start Haldol 5 mg PO BID Estimated Date of D/C: 11/22/17
[2017-11-19] MEDS: Multiple Vitamins Tab PO SCH (10:04)
--- NOTE | 2017-11-19 10:46 | PCM.PYCHPN ---
Psychiatric Progress Note - Psychiatric Progress Note Patient seen today, length of contact: 15 min Patient Chief Complaint: "I'm feeling little better" Problems Identified/Issues Discussed: Patient seen and evaluated, chart reviewed and discussed with the nurse. Pt still reports depressed mood, and feelings of hopelessness and helplessness. He still reports auditory hallucinations command type to kill himself and visual hallucinations, seeing shadows. He remained isolated and withdrawn, and confined to his room. His thoughts and speech were coherent and relevant. Pt was pleasant and cooperative. Patient is compliant with medications and denies any side effects. Symptoms are improving but pt needs more time to stabilize. Support and psychoeducation given. Medication Change: Yes Medical Record Reviewed: Yes Mental Status Examination - Cognitive Function Orientation: Person, Place, Situation Memory: Intact Attention: WNL Concentration: Poor Association: WNL Fund of Knowledge: Poor - Mood Mood: Depressed, Anxious - Affect Affect: Constricted, Blunted, Depressed - Speech Speech: Appropriate - Formal Thought Process Formal Thought Process: Hallucinations, Paranoia - Suicidal Ideation Suicidal Ideation: No - Homicidal Ideation Homicidal Ideation: No Goal/Treatment Plan - Goal/Treatment Plan Need for Continued Stay: Severe depression anxiety, Failed transitioning, Severe functional impairment Progress Toward Problem(s) and Goals/Treatment Plan: Bipolar 1 disorder most recent episode depressed without psychotic features. Alcohol use disorder severe. Cocaine use disorder severe. Opiate use disorder Patient education. Supportive therapy. CBT for relapse prevention. [place] for abstinence. [place] Geodon 60 mg PO BID Increase Zoloft 200 mg PO Daily Neurontin 300 mg po TID Librium when necessary for alcohol withdrawal symptoms. clonidine for opiate withdrawal symptoms. Other when necessary medications. Haldol 10 mg PO TID Estimated Date of D/C: 11/22/17
[2017-11-20] MEDS: Multiple Vitamins Tab PO SCH (09:10)
--- NOTE | 2017-11-20 11:26 | PCM.PYCHPN ---
Psychiatric Progress Note - Psychiatric Progress Note Patient seen today, length of contact: 15 min Patient Chief Complaint: "I'm anxious" Problems Identified/Issues Discussed: The pt is seen, chart reviewed, case discussed with staff. The pt is compliant with medications and reports no side-effects. Symptoms are improving but needs more time to stabilize. Insomnia and anxiety discussed Pt attends groups and activities. Support given, psycho-education provided. After care discussed Medication Change: Yes Medical Record Reviewed: Yes Mental Status Examination - Cognitive Function Orientation: Person, Place, Situation Memory: Intact Attention: WNL Concentration: Poor Association: WNL Fund of Knowledge: Poor - Mood Mood: Depressed, Anxious - Affect Affect: Constricted, Blunted, Depressed - Speech Speech: Appropriate - Formal Thought Process Formal Thought Process: No Impairment - Suicidal Ideation Suicidal Ideation: No - Homicidal Ideation Homicidal Ideation: No Goal/Treatment Plan - Goal/Treatment Plan Need for Continued Stay: Severe depression anxiety, Failed transitioning, Severe functional impairment Progress Toward Problem(s) and Goals/Treatment Plan: Continue medications, adjusted Support and psychoeducation daily Attend groups and activities daily After care planning by JEANNA Estimated Date of D/C: 11/22/17
[2017-11-21 06:29] VITALS: RESP 20
[2017-11-21] MEDS: Multiple Vitamins Tab PO SCH (10:15)
[2017-11-22 06:50] VITALS: BP 119/81; PULSE 86; TEMP 98
--- NOTE | 2017-11-22 09:30 | PCM.PYCHDC ---
Mental Status Examination - Mental Status Examination Orientation: Person, Place, Situation, Time Memory: Intact Mood: Neutral Affect: Constricted Speech: Soft Attention: WNL Concentration: WNL Association: WNL Fund of Knowledge: WNL Formal Thought Process: No Impairment Description of patient's judgement and insight: good, fair Psychotic Thoughts and Behaviors: denies any AVH Suicidal Ideation: No Current Homicidal Ideation?: No Discharge Summary - Discharge Note Reason for Hospitalization: Patient is a 52 years old, single, unemployed, on disability, -[place] male with history of bipolar disorder, noncompliant with treatment. Also has history of alcohol, cocaine and heroin use. Patient was admitted due to worsening of depression, suicidal and homicidal ideations and withdrawing from his substance use. Patient reported he stopped taking medication a few days ago, started feeling depressed and homicidal towards his ex- and suicidal with plan. Patient reported that he wanted to kill his with a knife and later want to kill himself by cutting his neck with the same knife. When asked about the knife patient reported that the knife is and his ex-'s home. Patient reported that his plan was to go there to get the knife, kill his ex- and then kill himself but he came to the hospital. Reported feeling depressed with decreased sleep and appetite but gained about 15 pounds over last 21 days. Reported history of 5 suicidal attempts in the past by different meanings including jumping in front of train, cutting on his left wrist and with poison. Patient reported he was admitted in the hospital after all these attempts. History of more than 10 inpatient psychiatric admissions. His last admission was at [facility] about one month ago. After discharge from the hospital patient did not have any follow-up with any psychiatrist. It appears when patient is out of medication he started having these thoughts and come to the hospital. Denied any current manic, anxiety or psychotic symptoms. X Heroin: He reported that his last use of heroin was 2 days ago. According to him he used heroin first time 3 days ago only one bag and stopped after that. Alcohol: Started drinking alcohol at 19 years of age, increased gradually currently he was drinking 3 beers each of 24 ounces daily. His last drink was 2 days ago. Denied any previous detox or rehabs. Cocaine: Started using cocaine at 19 years of age. Using $20 worth daily, sniffing. Last used 2 days ago. He smokes 10 cigarettes daily. Refused to get nicotine patch. He was born in [place], has one year of college education. Not working and is on disability. His last job was 2 years ago. He is and has no children. He was living with his mother. His height is 5 feet 11 inches and weight is 260 pounds. Patient wants to go to psychiatric outpatient for follow-up care after discharge from the hospital. Laboratory Data: Abnormal Lab Results 11/21/17 07:37 POC Glucose (mg/dL) 159 H Consultations:: List each consultation separately and include: 1. Reason for request. 2. Findings. 3. Follow-up Summary of Hospital Course include:: 1. Description of specific treatment plan utilized for patients during their course of treatmen. 2. Summarize the time- course for resolution of acute symptoms and/or regressed behaviors. 3. Describe issues identified and worked on during hospitalization. 4. Describe medication utilized. 5. Describe medical problems identified and treated. 6. Reassessment of suicide risk - Diagnosis (1) Bipolar 1 disorder Current Visit: No Status: Acute (2) Alcohol abuse Current Visit: No Status: Acute - Final Diagnosis (DSM 5) Condition upon Discharge: FAIR DSM 5: Bipolar 1 disorder most recent episode depressed without psychotic features. Alcohol use disorder severe. Cocaine use disorder severe. Opiate use disorder Disposition: HOME/ ROUTINE Follow-up Treatment Plan: Bipolar 1 disorder most recent episode depressed without psychotic features. Alcohol use disorder severe. Cocaine use disorder severe. Opiate use disorder Patient education. Supportive therapy. CBT for relapse prevention. [place] for abstinence. Geodon 60 mg PO BID Zoloft 50 mg PO Daily Neurontin 300 mg po TID Librium when necessary for alcohol withdrawal symptoms. clonidine for opiate withdrawal symptoms. Other when necessary medications. Start Haldol 5 mg PO BID Prescriptions/Medication Reconciliation: Gabapentin [Neurontin] 300 mg PO BID #60 cap Haloperidol [Haldol] 10 mg PO TID #90 tab QUEtiapine [Seroquel] 100 mg PO HS #30 tab Sertraline [Zoloft] 100 mg PO DAILY #60 tab traZODone [Desyrel] 100 mg PO HS PRN #30 tab PRN Reason: Sleep - Smoking Cessation Smoking Cessation Medication prescribed: No - Antipsychotic Medications Pt discharged on 2 or more routine antipsychotic medications: No
[2017-11-22] MEDS ORDERED: ceFAZolin IV 1 gm in Dextrose 2 GM/100 ML BAG IVPB ONE (09:47)
[2017-11-22] MEDS ORDERED: Lidocaine 2% MPF (5 ml) Inj ONE (09:48)
[2017-11-22] MEDS ORDERED: EPINEPHrine 1 mg/ml (1:1000) Inj ONE (09:48)
== END 2017-11-22 13:11 | disposition home or self-care (01) | DRG 885 ==
LOC: C.ER 19:18 → C.5E 11-07 00:21
PROC: GZ3ZZZZ Medication Management (ICD-10-PCS; principal; 2017-11-07)
PROC: HZ89ZZZ Medication Management for Substance Abuse Treatment, Other Replacement Medication (ICD-10-PCS; 2017-11-07)
PROC: GZHZZZZ Group Psychotherapy (ICD-10-PCS; 2017-11-07)
PROC: GZ56ZZZ Individual Psychotherapy, Supportive (ICD-10-PCS; 2017-11-07)
DX: F31.5 Bipolar disorder, current episode depressed, severe, with psychotic features (principal); F10.239 Alcohol dependence with withdrawal, unspecified; F11.23 Opioid dependence with withdrawal; F14.20 Cocaine dependence, uncomplicated; R45.851 Suicidal ideations; R45.850 Homicidal ideations; G47.00 Insomnia, unspecified; F41.9 Anxiety disorder, unspecified; F17.210 Nicotine dependence, cigarettes, uncomplicated; I10 Essential (primary) hypertension; E11.9 Type 2 diabetes mellitus without complications; E78.00 Pure hypercholesterolemia, unspecified; Z91.19 Patient's noncompliance with other medical treatment and regimen; Z79.899 Other long term (current) drug therapy

== ENCOUNTER 2017-12-01 19:55 | Emergency (ER) | payer MEDICARE, MEDICAID ==
[2017-12-01 19:55] VITALS: BMI 41.1
[2017-12-01 20:28] LABS: BASO % 0.5 % (0.0-2.0); EOS % 0.5 % (0.0-4.0); HEMOGLOBIN 13.3 g/dL (12.0-18.0); LYMPH # 1.6 K/uL (1.0-4.3); LYMPH % 22.2 % (20.0-40.0); MEAN CELL VOLUME 86.3 fL (80.0-94.0); MEAN CORPUSCULAR HEMOGLOBIN 28.9 pg (27.0-31.0); MEAN CORPUSCULAR HGB CONC 33.5 g/dL (33.0-37.0); MEAN PLATELET VOLUME 7.5 fL (7.2-11.7); MONO # 0.7 K/uL (0.0-0.8); MONO % 9.3 % (0.0-10.0); NEUT # 4.9 K/uL (1.8-7.0); NEUT % 67.5 % (50.0-75.0); RBC 4.62 Mil/uL (4.40-5.90); RED CELL DISTRIBUTION WIDTH 14.1 % (11.5-14.5); WHITE BLOOD COUNT 7.2 K/uL (4.8-10.8)
[2017-12-01 20:45] LABS: ALB/GLOB RATIO 1.4 (1.0-2.1); ALBUMIN 4.8 g/dL (3.5-5.0); ALT/SGPT 29 U/L (21-72); AST/SGOT 24 U/L (17-59); BLOOD UREA NITROGEN 11 mg/dL (9-20); CALCIUM 9.7 mg/dl (8.6-10.4); GFR NON-AFRICAN AMERICAN > 60
--- NOTE | 2017-12-01 20:54 | C.PDOC ---
History Of Present Illness 52 year old male presents to the ED for psychiatric evaluation. Patient states he stopped taking his Geodon one week ago. Patient admits to auditory hallucinations, stating that he is hearing voices that are telling him to kill his and then himself. Patient was evaluated for a similar complaint one month ago. He denies fever, chills, nausea, vomiting, or suicidal plan. Time Seen by Provider: 12/01/17 20:45 Chief Complaint (Nursing): Psychiatric Evaluation History Per: Patient History/Exam Limitations: no limitations Onset/Duration Of Symptoms: Days Current Symptoms Are (Timing): Still Present Suicide/Self Injury Attempted (Context): None Modifying Factor(s): None Severity: None Pain Scale Rating Of: 0 Associated Symptoms: Suicidal Thoughts. denies: Suicidal Plan Involuntary Hold By: None Recent travel outside of the [place]: No Additional History Per: Patient Past Medical History Reviewed: Historical Data, Nursing Documentation, Vital Signs Vital Signs: Last Vital Signs Temp 98.5 F 12/02/17 02:05 Pulse 83 12/02/17 02:05 Resp 14 12/02/17 02:05 BP 102/70 12/02/17 02:05 Pulse Ox 100 12/02/17 02:05 - Medical History PMH: Anxiety (feels very anxious.), Bipolar Disorder, Depression, Diabetes, HTN , Hypercholesterolemia Denies: Hepatitis, HIV, Chronic Kidney Disease, Seizures, Sexually Transmitted Disease Surgical History: No Surg Hx - [facility] Procedures DETOXIFICATION SERVICES FOR SUBSTANCE ABUSE TREATMENT (10/07/17) GROUP MARKETING RECRUITER FOR SUBSTANCE ABUSE TREATMENT, PSYCHOEDUCATION (10/07/17) GROUP MARKETING RECRUITER FOR SUBSTANCE ABUSE, COGNITIVE BEHAVIORAL (10/07/17) GROUP PSYCHOTHERAPY (11/07/17) INDIV PSYCHOTHERAPY FOR SUBSTANCE ABUSE TREATMENT, SUPPORT (10/07/17) INDIV PSYCHOTHERAPY FOR SUBSTANCE ABUSE, COGNITIV BEHAVIORAL (10/07/17) INDIV PSYCHOTHERAPY FOR SUBSTANCE ABUSE, PSYCHOEDUCATION (10/07/17) INDIVIDUAL PSYCHOTHERAPY, COGNITIVE-BEHAVIORAL (10/07/17) INDIVIDUAL PSYCHOTHERAPY, SUPPORTIVE (11/07/17) MEDICATION MANAGEMENT (11/07/17) MEDS MGMT FOR SUBSTANCE ABUSE TREATMENT, OTH REPL MED (11/07/17) Family History: States: Unknown Family Hx - Social History Hx Alcohol Use: Yes (yes las used yesterday) Hx Substance Use: Yes - Immunization History Hx Tetanus Toxoid Vaccination: No Hx Influenza Vaccination: No Hx Pneumococcal Vaccination: No Review Of Systems Constitutional: Negative for: Fever, Chills Cardiovascular: Negative for: Chest Pain, Palpitations Respiratory: Negative for: Cough, Shortness of Breath Gastrointestinal: Negative for: Nausea, Vomiting, Abdominal Pain Skin: Negative for: Rash, Lesions, Jaundice, Bruising Neurological: Negative for: Weakness, Numbness, Confusion, Altered Mental Status , Headache, Dizziness Psych: Positive for: Suicidal ideation, Other (auditory hallucination) Physical Exam - Physical Exam Appears: Non-toxic, No Acute Distress Skin: Warm, Dry Head: Normacephalic Chest: Symmetrical, No Deformity Cardiovascular: Rhythm Regular Respiratory: No Rales, No Rhonchi, No Wheezing Extremity: Normal ROM Neurological/Psych: Oriented x3, Other (depressed affect ) ED Course And Treatment - Laboratory Results Result Diagrams: 12/01/17 20:21 12/01/17 20:21 O2 Sat by Pulse Oximetry: 98 (on RA) Pulse Ox Interpretation: Normal Progress Note: Bloodwork and urinalysis ordered and reviewed. Disposition Counseled Patient/Family Regarding: Studies Performed, Diagnosis - Disposition Disposition Time: 07:00 Condition: FAIR Forms: [facility] (Setswana) - Clinical Impression Clinical Impression: Schizophrenia - Scribe Statement The provider has reviewed the documentation as recorded by the Scribe Provider Attestation: All medical record entries made by the Scribe were at my direction and personally dictated by me. I have reviewed the chart and agree that the record accurately reflects my personal performance of the history, physical exam, medical decision making, and the department course for this patient. I have also personally directed, reviewed, and agree with the discharge instructions and disposition. Physician Patient Turnover Patient Signed Over To: Grisel Champion Handoff Comments: pending face to face with the psychiatrist and then dispostion
[2017-12-01 22:44] LABS: SQUAMOUS EPITHIAL 3 /hpf (0-5); URINE BACTERIA RARE (<OCC); URINE BILIRUBIN NEGATIVE (NEGATIVE); URINE BLOOD NEGATIVE (NEGATIVE); URINE CLARITY Hazy (Clear); URINE COLOR Yellow (YELLOW); URINE GLUCOSE (UA) 1+ mg/dL (Normal); URINE LEUKOCYTE ESTERASE NEG Leu/uL (Negative); URINE PROTEIN 2+ mg/dL (NEGATIVE)
[2017-12-01 22:53] LABS: BARBITURATES, UR NEGATIVE (NEGATIVE); BENZODIAZEPINES, UR NEGATIVE (NEGATIVE); OPIATES, UR NEGATIVE (NEGATIVE); PHENCYCLIDINE, UR NEGATIVE (NEGATIVE)
--- NOTE | 2017-12-02 08:46 | PCM.PSYCH ---
Initial Psychiatric Evaluation - Initial Psychiatric Evaluation Type of Admission: Voluntary Legal Status: Capacity Current Medications: Active Medications Generic Name Dose Route Start Last Admin Trade Name Dennisq PRN Reason Stop Dose Admin Benztropine Mesylate 1 mg 12/02/17 10:00 Cogentin PO BID ESTUARDO Escitalopram Oxalate 10 mg 12/02/17 10:00 Lexapro PO DAILY ESTUARDO Haloperidol 5 mg 12/02/17 10:00 Haldol PO BID ESTUARDO Quetiapine Fumarate 50 mg 12/02/17 22:00 Seroquel PO HS ESTUARDO Past Psychiatric History - Past Psychiatric History Pertinent Medical Hx (Current Medical&Sleep Prob, Allergies): Allergies Allergy/AdvReac Type Severity Reaction Status Date / Time No Known Allergies Allergy Verified 11/06/17 19:30 MetFORMIN [glucOPHAGE] 1,000 mg PO BID 11/06/17 Gabapentin [Neurontin] 300 mg PO BID #60 cap 11/22/17 Haloperidol [Haldol] 10 mg PO TID #90 tab 11/22/17 QUEtiapine [Seroquel] 100 mg PO HS #30 tab 11/22/17 Sertraline [Zoloft] 100 mg PO DAILY #60 tab 11/22/17 Ziprasidone [Geodon] 60 mg PO TID 12/01/17 traZODone [Desyrel] 150 mg PO HS PRN 12/01/17 Benztropine [Cogentin] 1 mg PO BID #14 tab 12/02/17 Escitalopram [Lexapro] 10 mg PO DAILY #10 tab 12/02/17 Haloperidol [Haldol] 5 mg PO BID #14 tab 12/02/17 QUEtiapine [SEROquel] 50 mg PO HS #10 tab 12/02/17
[2017-12-02 09:41] VITALS: RESP 18
[2017-12-02 11:24] VITALS: BP 122/96; PULSE 91; TEMP 98.5; O2SAT 95
== END 2017-12-02 11:25 | disposition home or self-care (01) ==
LOC: C.ER 19:55
DX: F20.9 Schizophrenia, unspecified (principal)
CPT/HCPCS: 80053; 81001; 82140; 82948; 85025; 99285; G0480

== ENCOUNTER 2017-12-07 22:38 | Emergency (ER) | payer MEDICARE, MEDICAID ==
[2017-12-07 22:52] VITALS: BMI 36.2
--- NOTE | 2017-12-07 23:11 | C.PDOC ---
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 Patient presented to the dinkey locomotive engineer, and told them he was hearing voices telling him to stab them with a broken bottle. Otherwise he denies any visual hallucinations or suicidal ideation. Reports drinking alcohol today but no drug use. States he is supposed to take Geodon, but has not been taking it due to insurance problems. Time Seen by Provider: 12/07/17 22:58 Chief Complaint (Nursing): Psychiatric Evaluation History Per: Patient History/Exam Limitations: no limitations Onset/Duration Of Symptoms: Days Current Symptoms Are (Timing): Still Present Suicide/Self Injury Attempted (Context): None Modifying Factor(s): Alcohol Associated Symptoms: Other (Homicidal ideation) Involuntary Hold By: None Additional History Per: EMS Past Medical History Vital Signs: Last Vital Signs Temp 98.0 F 12/08/17 05:12 Pulse 79 12/08/17 05:12 Resp 16 12/08/17 05:12 BP 107/72 12/08/17 05:12 Pulse Ox 97 12/08/17 05:12 - Medical History PMH: Anxiety (feels very anxious.), Bipolar Disorder, Depression, Diabetes, HTN , Hypercholesterolemia, Schizophrenia Denies: Hepatitis, HIV, Chronic Kidney Disease, Seizures, Sexually Transmitted Disease - [facility] Procedures DETOXIFICATION SERVICES FOR SUBSTANCE ABUSE TREATMENT (10/07/17) GROUP SPEECH CLINICIAN FOR SUBSTANCE ABUSE TREATMENT, PSYCHOEDUCATION (10/07/17) GROUP SPEECH CLINICIAN FOR SUBSTANCE ABUSE, COGNITIVE BEHAVIORAL (10/07/17) GROUP PSYCHOTHERAPY (11/07/17) INDIV PSYCHOTHERAPY FOR SUBSTANCE ABUSE TREATMENT, SUPPORT (10/07/17) INDIV PSYCHOTHERAPY FOR SUBSTANCE ABUSE, COGNITIV BEHAVIORAL (10/07/17) INDIV PSYCHOTHERAPY FOR SUBSTANCE ABUSE, PSYCHOEDUCATION (10/07/17) INDIVIDUAL PSYCHOTHERAPY, COGNITIVE-BEHAVIORAL (10/07/17) INDIVIDUAL PSYCHOTHERAPY, SUPPORTIVE (11/07/17) MEDICATION MANAGEMENT (11/07/17) MEDS MGMT FOR SUBSTANCE ABUSE TREATMENT, OTH REPL MED (11/07/17) Family History: States: Unknown Family Hx - Social History Hx Alcohol Use: Yes (yes las used yesterday) Hx Substance Use: Yes - Immunization History Hx Tetanus Toxoid Vaccination: No Hx Influenza Vaccination: No Hx Pneumococcal Vaccination: No Review Of Systems Except As Marked, All Systems Reviewed And Found Negative. Constitutional: Negative for: Fever Cardiovascular: Negative for: Chest Pain Respiratory: Negative for: Shortness of Breath Gastrointestinal: Negative for: Vomiting, Abdominal Pain Psych: Positive for: Psychosis, Other (Hearing voices, homicidal ideation). Negative for: Suicidal ideation Physical Exam - Physical Exam Appears: No Acute Distress Skin: Warm, Dry Head: Atraumatic, Normacephalic Eye(s): bilateral: PERRL, EOMI Oral Mucosa: Moist Lips: Normal Appearing Neck: Normal ROM, Trachea Midline Lymphatic: No Adenopathy Chest: Symmetrical Cardiovascular: Rhythm Regular, No Murmur Respiratory: Normal Breath Sounds, No Accessory Muscle Use Gastrointestinal/Abdominal: Soft, No Tenderness, No Distention Back: Normal Inspection, No Decreased ROM Extremity: Normal ROM, No Deformity Neurological/Psych: Oriented x3, Normal Speech, Other (normal thought process and concentration, normal affect) ED Course And Treatment - Laboratory Results Result Diagrams: 12/07/17 23:11 12/07/17 23:11 O2 Sat by Pulse Oximetry: 95 (RA) Pulse Ox Interpretation: Normal Medical Decision Making Medical Decision Making: Initial Impression: Psychosis with violent futures Plan: --CMP --Alcohol serum --UDS --CBC --Urinalysis --Urine preg --Placed on 1:1 observation as per suicide precaution --Pending crisis evaluation 1:00am Patient still awaiting crisis evaluation and final disposition. Patient endorsed to Dr. Anders at this time. Disposition - Disposition Disposition Time: 01:00 Condition: STABLE Forms: [facility] (French) - Clinical Impression Clinical Impression: Schizophrenia - Scribe Statement The provider has reviewed the documentation as recorded by the Ivanaibrisa Fernandez Provider Attestation: All medical record entries made by the Ivanaibe were at my direction and personally dictated by me. I have reviewed the chart and agree that the record accurately reflects my personal performance of the history, physical exam, medical decision making, and the department course for this patient. I have also personally directed, reviewed, and agree with the discharge instructions and disposition. Physician Patient Turnover Patient Signed Over To: Avani Anders Handoff Comments: pending crisis evaluation and final disposition
[2017-12-07 23:16] LABS: BASO % 0.5 % (0.0-2.0); EOS # 0.1 K/uL (0.0-0.7); EOS % 0.5 % (0.0-4.0); HEMOGLOBIN 13.4 g/dL (12.0-18.0); LYMPH # 2.3 K/uL (1.0-4.3); LYMPH % 23.8 % (20.0-40.0); MEAN CELL VOLUME 87.1 fL (80.0-94.0); MEAN CORPUSCULAR HEMOGLOBIN 30.2 pg (27.0-31.0); MEAN CORPUSCULAR HGB CONC 34.7 g/dL (33.0-37.0); MONO # 0.8 K/uL (0.0-0.8); NEUT # 6.5 K/uL (1.8-7.0); NEUT % 67.2 % (50.0-75.0); NRBC % 0.1 % (0.0-2.0); RBC 4.43 Mil/uL (4.40-5.90); RED CELL DISTRIBUTION WIDTH 14.1 % (11.5-14.5); WHITE BLOOD COUNT 9.7 K/uL (4.8-10.8)
[2017-12-07 23:29] LABS: ALB/GLOB RATIO 1.5 (1.0-2.1); ALBUMIN 4.7 g/dL (3.5-5.0); ALT/SGPT 26 U/L (21-72); AST/SGOT 19 U/L (17-59); BLOOD UREA NITROGEN 10 mg/dL (9-20); CALCIUM 10.1 mg/dl (8.6-10.4); GFR NON-AFRICAN AMERICAN > 60
[2017-12-07 23:40] LABS: BARBITURATES, UR NEGATIVE (NEGATIVE); BENZODIAZEPINES, UR NEGATIVE (NEGATIVE); OPIATES, UR NEGATIVE (NEGATIVE); PHENCYCLIDINE, UR NEGATIVE (NEGATIVE)
[2017-12-08 01:17] LABS: SQUAMOUS EPITHIAL < 1 /hpf (0-5); URINE BACTERIA RARE (<OCC); URINE BILIRUBIN NEGATIVE (NEGATIVE); URINE BLOOD NEGATIVE (NEGATIVE); URINE CLARITY Clear (Clear); URINE COLOR Yellow (YELLOW); URINE GLUCOSE (UA) 1+ mg/dL (Normal); URINE LEUKOCYTE ESTERASE NEG Leu/uL (Negative); URINE PROTEIN NEGATIVE (NEGATIVE); URINE UROBILINOGEN NORMAL mg/dL (0.2-1.0)
[2017-12-08 05:13] VITALS: BP 107/72; PULSE 79; RESP 16; TEMP 98
[2017-12-08 14:08] VITALS: O2SAT 95
== END 2017-12-08 05:33 | disposition home or self-care (01) ==
LOC: C.ER 22:38
DX: F20.9 Schizophrenia, unspecified (principal)
CPT/HCPCS: 80053; 81001; 82948; 85025; 99285; G0480